=== PATIENT | male | born 1960 | race Caucasian/White ===

== ENCOUNTER 2019-08-22 01:30 | Outpatient (CLI) | payer SELFPAY ==
[2019-08-22 11:07] LABS: Anion Gap 7.3 mmol/L (3-11); BUN 20 mg/dL (7-18); CO2 29.7 mmol/L (21.0-32.0); CREATININE 1.29 mg/dL (0.70-1.30); Calcium 8.2 mg/dL (8.5-10.1); Chloride 104 mmol/L (98-107); Estimated GFR 57.21 (mL/min/1.73m2); Glucose 94 mg/dL (74-106); Potassium 4.7 mmol/L (3.5-5.1); Sodium 141 mmol/L (136-145); Uric Acid 6.9 mg/dL (3.5-7.2)
[2019-08-22 11:18] LABS: Calculated LDL 83 mg/dL (<100); Cholesterol 137 mg/dL (<200); HDL Cholesterol 46 mg/dL (40-60); Triglyceride 41 mg/dL (<150)
== END 2019-08-22 01:50 ==
PROVIDERS: PCP Family Medicine; Visit Provider Family Medicine
DX: I10 Essential (primary) hypertension (principal); M10.9 Gout, unspecified
CPT/HCPCS: 36415; 80048; 80061; 84550

== ENCOUNTER 2020-06-18 09:15 | Emergency (ER) | payer SELFPAY ==
[2020-06-18 09:23] VITALS: BP 173/93; PULSE 58; RESP 17; TEMP 36.7; O2SAT 97
--- NOTE | 2020-06-18 09:30 | DI.CT_ITS ---
EXAM: CT FACIAL W CLINICAL HISTORY: Left periorbital swelling. TECHNIQUE: Imaging Protocol: Axial computed tomography images with coronal and sagittal reformatted images were created and reviewed CONTRAST MATERIAL: Intravenous: Omnipaque 350 Contrast volume:100 ml contrast route:IV - COMPARISON: No exams were available for comparison FINDINGS: Facial Bones: No fracture is noted in facial bones. Sinuses and Mastoids: Mild ethmoid and right maxillary sinus mucosal thickening. Globes, extraocular muscles, optic nerves and retrobulbar fat: Normal. Upper aerodigestive tract: Normal. Mandible and bilateral temporomandibular joints: Normal. Soft tissues: Marked soft tissue swelling in the left Carolyne orbital region extending inferiorly to the left maxillary region. No foreign body is visible. The visualized portions of the brain are unremarkable. IMPRESSION: Left periorbital cellulitis. No drainable abscess or visible foreign body. RADIATION DOSE DELIVERED: 343.62mGy.cm Total DLP DATA REPOSITORY: All CT scans at this facility are submitted to the National Radiology Data Registry (NRDR) Dose Index Registry (DIR) with the [employer] (A[employer]). RADIATION OPTIMIZATION: All CT scans at this facility use at least one of these dose optimization te chniques: automated exposure control; mA and/or kV adjustment per patient size (includes targeted exa ms where dose is matched to clinical indication); or iterative reconstruction.
[2020-06-18 10:06] LABS: Abs Immature Grans 0.04 10^3/uL (0.0-0.06); Absolute Basophil Count 0.07 10^3/uL (0.0-0.2); Absolute Eosinophil Count 1.02 10^3/uL (0.0-0.7); Absolute Lymphocyte Count 2.59 10^3/uL (1.2-3.4); Absolute Monocyte Count 0.63 10^3/uL (0.1-0.8); Absolute Neutrophil Count 6.94 10^3/uL (1.2-6.7); Basophils % 0.6; HCT 50.4 % (40.0-50.0); HGB 17.5 g/dL (13.5-17.5); Immature Grans % 0.4; Lymphocytes % 22.9; MCH 30.1 pg (27.0-33.0); MCHC 34.7 % (32.0-36.0); MCV 86.6 fL (80-95); MPV 10.5 fL (8.0-11.0); Monocytes % 5.6; Neutrophils % 61.5; Nucleated RBC 0 %; Platelet Count 204 10^3/uL (130-400); RBC 5.82 10^6/uL (4.36-5.78); RDW 12.1 % (11.8-14.1); RDW-SD 38.3 fL; WBC 11.29 10^3/uL (4.4-10.8)
[2020-06-18 10:25] LABS: ALT 31 U/L (16-63); AST 16 U/L (15-37); Alkaline Phosphatase 100 U/L (46-116); Anion Gap 7.9 mmol/L (3-11); BUN 18 mg/dL (7-18); Bilirubin, Total 0.4 mg/dL (0.2-1.0); CO2 26.1 mmol/L (21.0-32.0); CREATININE 1.47 mg/dL (0.70-1.30); Calcium 9.1 mg/dL (8.5-10.1); Chloride 104 mmol/L (98-107); Estimated GFR 49.03 (mL/min/1.73m2); Glucose 105 mg/dL (74-106); Potassium 4.1 mmol/L (3.5-5.1); Sodium 138 mmol/L (136-145); Total Protein 7.7 g/dL (6.4-8.2)
[2020-06-18] MEDS: Normal Saline 1,000 ML 1000 ML IV (11:03)
[2020-06-18] MEDS: Normal Saline - Diluent 50 ML VIAL IV (11:03)
[2020-06-18] MEDS: Omnipaque 350 MG/ML 100 ML BTL IJ (11:03)
--- NOTE | 2020-06-18 11:04 | ED.GENADUL_ITS ---
Discharge Plan Disposition Patient Disposition: HOME Condition: Stable Discharge Details Clinical Impression: Periorbital cellulitis Primary Care Provider: Adryan Colunga ED Provider: Nirmal Zapien Home Meds and New Rx's Prescriptions: New sulfamethoxazole-trimethoprim [Bactrim DS] 800-160 mg tablet 1 tab PO BID Qty: 20 RF: 0 No Action lisinopril 40 mg tablet 40 mg PO DAILY Qty: 90 RF: 4 Prilosec 10 mg susp,delayed release for recon 10 mg PO DAILY RF: 0 Discharge Instructions Instructions: Cellulitis (ED) Additional Instructions: Bactrim as directed. Cool and/or warm compresses every 2 hours for 20 minutes. [id number] Tylenol and/or Motrin as directed for discomfort. Please watch for new or worsening symptoms and return to the ER for any concerns. Please contact your primary care provider on Saturday for prompt outpatient reevaluation. Discharge Data Discharge Date/Time-TO BE ENTERED AT DEPARTURE: 06/18/20 12:12 Medical Decision Making 60-year-old gentleman with left-sided facial swelling, edema has been intermittent and changing locations over the past couple of months however focal over the past 24-48 hours. He denies any obvious injury, eye pain, change of vision, numbness, tingling, weakness, headache, fever, neck pain, sore throat, difficulty speaking or swallowing. Clinically this appears to be more of a facial-periorbital cellulitis. No discomfort with eye movement, he appears well, nontoxic, less likely orbital cellulitis. Certainly could be an allergic reaction however given the presentation of multiple times over the past couple of months will obtain IV access, routine laboratory values and facial CT for more information. Patient is agreeable to this plan. He did have his holidays yesterday with his daughter who was known to be Covid positive. He is otherwise asymptomatic, we discussed the importance of quarantining. Initial laboratory values are rather unremarkable. White blood cell count slightly elevated 11.29. Electrolytes unremarkable. His creatinine is 1.47 with a GFR of 49.03. This appears near his baseline but minimally worse. We will give a single liter of IV fluid given he will obtain a CT with IV contrast. CT imaging read by radiology as left periorbital cellulitis. No CT evidence of foreign body. Hypoplastic right maxillary sinus with mild mucosal thickening. Likely asymmetrical accessory parotid gland tissue versus lymph node along the left lateral maxillary soft tissue. Discussed CT findings with patient. Will initiate antibiotic therapy, Bactrim. Patient is comfortable with this plan and has no additional questions or concerns. We did discuss [id number] Tylenol and/or Motrin for discomfort. The importance of returning to the ER for new or worsening symptoms. And lastly contacting his primary care provider on Saturday for prompt outpatient reevaluation. Medical Records Medical records reviewed: Yes I reviewed the patient's medical records. Lab Data Lab results reviewed: Yes I reviewed the patient's lab results. Lab results narrative: Laboratory Tests Range/Units 06/18/20 06/18/20 09:58 09:58 WBC (4.4-10.8) 10^3/uL 11.29 H RBC (4.36-5.78) 10^6/uL 5.82 H Hgb (13.5-17.5) g/dL 17.5 Hct (40.0-50.0) % 50.4 H MCV (80-95) fL 86.6 MCH (27.0-33.0) pg 30.1 MCHC (32.0-36.0) % 34.7 RDW (11.8-14.1) % 12.1 Plt Count (130-400) 10^3/uL 204 MPV (8.0-11.0) fL 10.5 Immature Gran % 0.4 Neutrophils % 61.5 Lymphocytes % 22.9 Monocytes % 5.6 Eosinophils % 9.0 Basophils % 0.6 Nucleated RBC % % 0 Absolute Neutrophils (1.2-6.7) 10^3/uL 6.94 H Absolute Lymphocytes (1.2-3.4) 10^3/uL 2.59 Absolute Monocytes (0.1-0.8) 10^3/uL 0.63 Absolute Eosinophils (0.0-0.7) 10^3/uL 1.02 H Absolute Basophils (0.0-0.2) 10^3/uL 0.07 Sodium (136-145) mmol/L 138 Potassium (3.5-5.1) mmol/L 4.1 Chloride (98-107) mmol/L 104 Carbon Dioxide (21.0-32.0) mmol/L 26.1 Anion Gap (3-11) mmol/L 7.9 BUN (7-18) mg/dL 18 Creatinine (0.70-1.30) mg/dL 1.47 H Estimated GFR/1.73 m2 (mL/min/1.73m2) 49.03 Glucose (74-106) mg/dL 105 Calcium (8.5-10.1) mg/dL 9.1 Total Bilirubin (0.2-1.0) mg/dL 0.4 AST (15-37) U/L 16 ALT (16-63) U/L 31 Alkaline Phosphatase (46-116) U/L 100 Total Protein (6.4-8.2) g/dL 7.7 Albumin (3.4-5.0) g/dL 4.0 HPI General Mode of arrival: ambulatory . Date/Time Provider Initiated Documentation: 06/18/20 09:15 . Limitations to Documentation: no limitations . Information obtained by: patient . HPI Narrative: This is a 60-year-old gentleman, past medical history of hypertension, GERD, current smoker, presenting for a left-sided facial swelling. He reports the pain is without discomfort or warmth. It began 2 days ago near his left cheek and now is spread across his entire left eye. He is unaware of any triggers, anything that makes symptoms worse or better. He has taken Benadryl but unsure if it has really made a difference. He states over the past 1-2 months, initially had this began in [place], was in the center of his forehead, went to the right side of his head now, now on the left side of his face. He has not had this evaluated prior to today. He denies recent illness or trauma. He was in contact with his daughter yesterday who was tested positive for Covid. He denies eye pain, visual changes, ear pain, sore throat, facial pain, chest pain, shortness of breath, numbness, tingling, weakness, redness, abdominal pain, nausea, vomiting. Related Data Home Medications Medication Instructions Recorded Confirmed lisinopril 40 mg tablet 40 mg PO DAILY #90 tab-cap 08/07/19 06/18/20 omeprazole magnesium 10 mg oral 10 mg PO DAILY 10/07/19 06/18/20 suspension,delayed release sulfamethoxazole-trimethoprim 1 tab PO BID #20 tab 06/18/20 [Bactrim DS] Previous Rx's Medication Instructions Recorded lisinopril 40 mg tablet 40 mg PO DAILY #90 tab-cap 08/07/19 sulfamethoxazole-trimethoprim 1 tab PO BID #20 tab 06/18/20 [Bactrim DS] Allergies Allergy/AdvReac Type Severity Reaction Status Date / Time indomethacin AdvReac N/V/D Verified 06/18/20 09:26 General Stated Complaint: Cellulitis BIJU: 3 Review of Systems Constitutional Constitutional: Denies fever(s), Denies headache(s) and Denies weakness Eyes Eyes: Denies change in vision and Denies eye pain ENT Ears, Nose, Mouth, and Throat: Denies headache(s), Denies neck pain and Denies sore throat Cardiovascular Cardiovascular: Denies chest pain and Denies dyspnea Respiratory Respiratory: Denies cough, Denies dyspnea and Denies wheezing Gastrointestinal Gastrointestinal: Denies abdominal pain, Denies nausea and Denies vomiting Musculoskeletal Musculoskeletal: Denies neck pain, Denies numbness and Denies tingling Integumentary/Breasts Skin/Breast: Denies erythema Neurologic Neurologic: Denies headache(s), Denies numbness, Denies tingling and Denies weakness Allergic/Immunologic Allergic/Immunologic: Denies wheezing PFSH Medical History Shoulder pain, bilateral Family History Mother , AGE 70 Stroke Cancer Father Dementia Leukemia Sister Substance abuse Brother Asthma Maternal Grandfather Cancer Heart disease Paternal Grandfather No problems noted. Maternal Grandmother No problems noted. Paternal Grandmother No problems noted. Brother No problems noted. Brother No problems noted. Son No problems noted. Daughter No problems noted. Social History Smoking/Tobacco Use Status: Former Tobacco Use Tobacco: How many years used: 26 Second Hand Exposure: Yes Smoking risk assessment performed?: Yes Alcohol Intake: current Alcohol Intake frequency: holidays/special occasions only Alcohol type: beer Drug use: Never Substance use type: does not use Household members: spouse and family Housing: house Pets and animals: Yes Pets and animals: cat(s) and dog(s) Sexually active: Yes Do you think of yourself as: straight/heterosexual Current gender identity: male What is your relationship status?: How often do you talk on the phone with friends or family?: decline to answer How often do you get together with friends or relatives?: once per week Do you belong to any clubs or organized social groups?: no Panel score (0-1 are the most socially isolated patients): 1 What type of physical activity do you participate in: walking Duration: 15-30 minutes/day Frequency: 5-6 times per week Shayla/Gnosticism: Amish Special shayla needs: No Seatbelt use: always Helmet use: No 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 Do you feel safe at home: Yes Do you feel safe in your relationship?: Yes Exam Const General: cooperative, healthy appearing, comfortable and no acute distress Orientation: alert, awake and oriented x3 HENMT Head: normal to inspection, normocephalic and atraumatic Ears: external ears normal, TM's normal bilaterally and EAC's normal General nose exam: external nose normal Face and sinus: edema on the left periorbital, forehead, malar area and maxilla Mouth: oral mucosae normal and moist mucous membranes Teeth and gingiva: dentition normal Throat: posterior oropharynx normal Eyes Alignment and Position: alignment normal Periorbital: periorbital findings abnormal left periorbital swelling; no tenderness, no erythema, no ecchymosis and no crepitus Eyelids: eyelid abnormality left upper eyelid swelling and left lower eyelid swelling Conjunctivae: conjunctivae normal Sclera: sclerae normal Cornea: corneas normal Pupils: PERRL EOM: EOM intact bilaterally Direct ophthalmoscopy: normal light reflex Neck Neck: normal visual inspection, full ROM, no meningeal signs, trachea midline, supple, lymphadenopathy left submandibular and nontender Resp Effort & Inspection: normal respiratory effort and able to speak in complete sentences Auscultation: clear to auscultation bilaterally Cardio Rate: regular rate Rhythm: regular rhythm Skin General skin exam: no rashes or lesions noted Neuro General: patient alert, patient awake, moves all extremities and no focal motor deficits Cranial Nerves: CN's II-XI intact bilaterally Cognition: normal cognition Speech: speech normal Gait: normal gait Sensory Exam: no sensory deficits noted Psych Appearance: grossly normal Mental Status: mental status grossly normal Course Vital Signs Vital signs: Vital Signs Temperature 36.7 C 06/18/20 09:23 Pulse 58 L 06/18/20 09:23 Respiratory Rate 17 06/18/20 09:23 Blood Pressure 173/93 H 06/18/20 09:23 Pulse Oximetry 97 06/18/20 09:23 Temperature 36.7 C 06/18/20 09:23 Temperature Source Temporal Artery Scan 06/18/20 09:23 Pulse 58 L 06/18/20 09:23 Respiratory Rate 17 06/18/20 09:23 Respiratory Effort Non-Labored 06/18/20 09:27 Blood Pressure 173/93 H 06/18/20 09:23 Blood Pressure Position Sitting 06/18/20 09:23 Pulse Oximetry 97 06/18/20 09:23 Oxygen Delivery Method Nasal Cannula 06/18/20 09:23 Pain Level 0 06/18/20 09:23 Lab/Test Results Lab/Test Results: Laboratory Tests Range/Units 06/18/20 06/18/20 09:58 09:58 WBC (4.4-10.8) 10^3/uL 11.29 H RBC (4.36-5.78) 10^6/uL 5.82 H Hgb (13.5-17.5) g/dL 17.5 Hct (40.0-50.0) % 50.4 H MCV (80-95) fL 86.6 MCH (27.0-33.0) pg 30.1 MCHC (32.0-36.0) % 34.7 RDW (11.8-14.1) % 12.1 Plt Count (130-400) 10^3/uL 204 MPV (8.0-11.0) fL 10.5 Immature Gran % 0.4 Neutrophils % 61.5 Lymphocytes % 22.9 Monocytes % 5.6 Eosinophils % 9.0 Basophils % 0.6 Nucleated RBC % % 0 Absolute Neutrophils (1.2-6.7) 10^3/uL 6.94 H Absolute Lymphocytes (1.2-3.4) 10^3/uL 2.59 Absolute Monocytes (0.1-0.8) 10^3/uL 0.63 Absolute Eosinophils (0.0-0.7) 10^3/uL 1.02 H Absolute Basophils (0.0-0.2) 10^3/uL 0.07 Sodium (136-145) mmol/L 138 Potassium (3.5-5.1) mmol/L 4.1 Chloride (98-107) mmol/L 104 Carbon Dioxide (21.0-32.0) mmol/L 26.1 Anion Gap (3-11) mmol/L 7.9 BUN (7-18) mg/dL 18 Creatinine (0.70-1.30) mg/dL 1.47 H Estimated GFR/1.73 m2 (mL/min/1.73m2) 49.03 Glucose (74-106) mg/dL 105 Calcium (8.5-10.1) mg/dL 9.1 Total Bilirubin (0.2-1.0) mg/dL 0.4 AST (15-37) U/L 16 ALT (16-63) U/L 31 Alkaline Phosphatase (46-116) U/L 100 Total Protein (6.4-8.2) g/dL 7.7 Albumin (3.4-5.0) g/dL 4.0
--- NOTE | 2020-06-18 11:14 | DI.VRAD_ITS ---
PROCEDURE INFORMATION: Exam: CT Maxillofacial With Contrast Exam date and time: 06/18/2020 9:45 AM Age: 60 years old Clinical indication: Eye pain and face pain; Left; Patient HX: Moving mulch, feels like fb in eye beginning Saturday TECHNIQUE: Imaging protocol: Computed tomography images of the face with intravenous contrast. COMPARISON: No relevant prior studies available. FINDINGS: Orbital cavity: The orbits are unremarkable posterior to the orbital septum. The globes are intact. Bones/joints: No acute fracture. Paranasal sinuses: Hypoplastic right maxillary sinus. Mild ethmoid and right maxillary sinus mucosal thickening. Soft tissues: Significant left periorbital soft tissue swelling and edema with extension to the left maxillary soft tissues. No CT evident foreign body. Lymph nodes: Asymmetrical soft tissue density measuring 2.1 x 1.0 cm in axial dimension along the left lateral maxillary soft tissues could represent accessory parotid gland versus reactive lymph node. IMPRESSION: 1. Left periorbital cellulitis as described above. No CT evident foreign body. If continued clinical concern for foreign body remains, recommend targeted ultrasound examination. 2. Hypoplastic right maxillary sinus with mild mucosal thickening. 3. Likely asymmetrical accessory parotid gland tissue versus lymph node along the left lateral maxillary soft tissues. Dictated and Authenticated by: Hossein Melendez MD. Ordering:RYLEY Kinney MD
[2020-06-18] MEDS: Sulfameth/Trimeth DS TAB 1 TAB PO (11:31)
[2020-06-18 12:09] VITALS: BP 163/86; PULSE 55; RESP 16; TEMP 36.9; O2SAT 99
== END 2020-06-18 12:12 | disposition home or self-care (01) ==
PROVIDERS: Emergency Provider Physician Assistant; PCP Family Medicine
DX: L03.213 Periorbital cellulitis (principal); I10 Essential (primary) hypertension
CPT/HCPCS: 80053; 96360; 99285; 70487; 85025; 99284; J3490

== ENCOUNTER 2020-09-16 16:44 | Outpatient (REF) | payer SELFPAY ==
[2020-09-16 21:04] LABS: Anion Gap 12.5 mmol/L (3-11); BUN 14 mg/dL (7-18); CO2 24.5 mmol/L (21.0-32.0); CREATININE 1.2 mg/dL (0.70-1.30); Calcium 9.3 mg/dL (8.5-10.1); Chloride 102 mmol/L (98-107); Glucose 107 mg/dL (74-106); Potassium 3.8 mmol/L (3.5-5.1); Sodium 139 mmol/L (136-145); Uric Acid 6.8 mg/dL (3.5-7.2)
== END 2020-09-16 16:45 | disposition home or self-care (01) ==
LOC: LBN 16:44
PROVIDERS: PCP Family Medicine; Visit Provider Emergency Medicine
DX: I10 Essential (primary) hypertension (principal); M10.9 Gout, unspecified
CPT/HCPCS: 80048; 84550

== ENCOUNTER 2021-05-26 18:46 | Outpatient (REF) | payer SELFPAY ==
[2021-05-28 22:25] LABS: COVID-19 RT-PCR UVMMC Result Positive (Negative)
== END 2021-05-26 18:47 | disposition home or self-care (01) ==
LOC: LBN 18:46
PROVIDERS: PCP Family Medicine; Visit Provider Family Medicine
DX: Z20.822 Contact with and (suspected) exposure to COVID-19 (principal)
CPT/HCPCS: U0003

== ENCOUNTER 2021-11-20 13:52 | Emergency (ER) | payer SELFPAY ==
[2021-11-20 14:01] VITALS: BP 170/93; PULSE 78; RESP 18; TEMP 36.3; O2SAT 97
--- NOTE | 2021-11-20 14:23 | ED.GENADUL_ITS ---
Discharge Plan Disposition Patient Disposition: HOME Condition: Stable Discharge Details Clinical Impression: Tadeo's palsy Primary Care Provider: Kimo George ED Provider: Frieda Reina Home Meds and New Rx's Prescriptions: New prednisone 20 mg tablet 60 mg PO ONCE Qty: 21 0RF valacyclovir [Valtrex] 1 gram tablet 1,000 mg PO TID Qty: 21 0RF Continued Prilosec 10 mg susp,delayed release for recon 10 mg PO DAILY metoprolol succinate 25 mg tablet extended release 24 hr 25 mg PO DAILY Qty: 90 3RF amlodipine 10 mg tablet 10 mg PO DAILY Qty: 90 3RF allopurinol 300 mg tablet 450 mg PO DAILY Qty: 135 3RF Rx Instructions: dose increase 11/02/20 Discharge Instructions Additional Instructions: Please take the Valtrex as prescribed Take the prednisone as prescribed Apply artificial tears to your eye at least 3 times daily You may wish to wear goggles to protect your eye and keep your eyes shut with repeated exposure Return earlier should you have new or worsening complaints If you start having some discomfort to your eye, it is recommended that you follow-up with the clinical science consultant, Sherine Referrals: Kimo George, COLLE[facility] ADMINISTRATOR [Primary Care Provider] - Discharge Data Discharge Date/Time-TO BE ENTERED AT DEPARTURE: 11/20/21 15:00 Medical Decision Making Patient with likely Tadeo's palsy Given facial nerve palsy on exam Lyme titer pending Alert, oriented, ambulatory with steady gait and otherwise nonfocal neurological exam aside from facial nerve palsy Placed on Valtrex, prednisone taper Will need close outpatient follow-up Referral to [facility] Low suspicion clinically for central process Medical Records Medical records reviewed: Yes I reviewed the patient's medical records. Lab Data Lab results reviewed: Yes I reviewed the patient's lab results. HPI General Date/Time Provider Initiated Documentation: 11/20/21 14:00 . HPI Narrative: This 61-year-old male with history of hypertension presents with left facial droop since . He states he awoke with it. He denies any chest pain. He states he is unable to close his eye and is constantly tearing. He denies any strength, speech, or sensation change. He denies history of similar symptoms in the past. He denies any rashes or history of herpes. He denies any headache. Denies any chest pain or shortness of breath. Denies any dizziness or weakness. Denies any falls or injuries Related Data Home Medications Medication Instructions Recorded Confirmed omeprazole magnesium 10 mg oral 10 mg PO DAILY 10/07/19 11/20/21 suspension,delayed release (Prilosec) allopurinol 300 mg tablet 450 mg PO DAILY #135 tabs 08/15/21 11/20/21 amlodipine 10 mg tablet 10 mg PO DAILY #90 tabs 08/15/21 11/20/21 metoprolol succinate 25 mg 25 mg PO DAILY #90 tabs 08/15/21 11/20/21 tablet,extended release 24 hr prednisone 20 mg tablet 60 mg PO ONCE #21 tabs 11/20/21 valacyclovir 1 gram tablet 1,000 mg PO TID #21 tabs 11/20/21 (Valtrex) Previous Rx's Medication Instructions Recorded allopurinol 300 mg tablet 450 mg PO DAILY #135 tabs 08/15/21 amlodipine 10 mg tablet 10 mg PO DAILY #90 tabs 08/15/21 metoprolol succinate 25 mg 25 mg PO DAILY #90 tabs 08/15/21 tablet,extended release 24 hr prednisone 20 mg tablet 60 mg PO ONCE #21 tabs 11/20/21 valacyclovir 1 gram tablet 1,000 mg PO TID #21 tabs 11/20/21 (Valtrex) Allergies Allergy/AdvReac Type Severity Reaction Status Date / Time SHIRLEY Inhibitors AdvReac Intermediate angioedema Verified 11/20/21 14:05 indomethacin AdvReac N/V/D Verified 11/20/21 14:05 General Stated Complaint: AMS/LOC BIJU: 3 Review of Systems Narrative: Review of systems obtained x10 and negative aside from medication HPI Eyes Comments: Pupils equal round reactive to light and accommodation PFSH All Active Problems (Updated 11/20/21 @ 14:32 by EDWARDO Clayton) Tadeo's palsy (Acute) Exposure to COVID-19 virus (Acute) Facial swelling (Acute) Shoulder pain, bilateral (Acute) Pelvic pain (Acute) Essential hypertension (Acute) Patellofemoral syndrome of left knee (Chronic) Drug-induced erectile dysfunction (Chronic 06/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 Maternal Grandmother No problems noted. Paternal Grandmother No problems noted. Brother No problems noted. Brother No problems noted. Son No problems noted. Daughter No problems noted. Social History (Updated 11/29/20 @ 15:47 by Chloe Miller) Smoking/Tobacco Use Status: Former Tobacco Use Tobacco: How many years used: 26 Second Hand Exposure: Yes Smoking risk assessment performed?: Yes Alcohol Intake: current Alcohol Intake frequency: holidays/special occasions only Alcohol type: beer Drug use: Never Substance use type: does not use Household members: spouse and children Housing: house Communication Needs: None Do you need help understanding health information?: Always Pets and animals: Yes Pets and animals: cat(s) and dog(s) Sexually active: Yes Do you think of yourself as: straight/heterosexual Current gender identity: male What is your relationship status?: refused to answer How often do you talk on the phone with friends or family?: once per week How often do you get together with friends or relatives?: never How often do you attend scientologist or episcopalian services?: 1-3 times per year Do you belong to any clubs or organized social groups?: no Panel score (0-1 are the most socially isolated patients): 0 What type of physical activity do you participate in: walking Duration: 30-45 minutes/day Frequency: 5-6 times per week Shayla/Roman Catholic: Mu-Ism Special shayla needs: No Seatbelt use: sometimes Helmet use: No Drive 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 or 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 Do you feel safe at home: Yes Do you feel safe in your relationship?: Yes Exam Const General: cooperative, comfortable and no acute distress Chest Chest: normal inspection of the chest Resp Effort & Inspection: normal respiratory effort Auscultation: clear to auscultation bilaterally Cardio Rate: regular rate Rhythm: regular rhythm GI Inspection: normal to inspection Skin General skin exam: no rashes or lesions noted Neuro General: patient alert and patient oriented x3 Speech: speech normal Motor: muscle tone normal throughout and strength 5/5 throughout Sensory Exam: no sensory deficits noted Other: Left facial nerve palsy noted, uvula midline, negative pronator drift, negative finger-nose finger Course Vital Signs Vital signs: Vital Signs Temperature 36.3 C L 11/20/21 14:01 Pulse 78 11/20/21 14:01 Respiratory Rate 18 11/20/21 14:01 Blood Pressure 170/93 H 11/20/21 14:01 Pulse Oximetry 97 11/20/21 14:01 Temperature 36.3 C L 11/20/21 14:01 Temperature Source Temporal Artery Scan 11/20/21 14:01 Pulse 78 11/20/21 14:01 Respiratory Rate 18 11/20/21 14:01 Respiratory Effort Non-Labored 11/20/21 14:05 Blood Pressure 170/93 H 11/20/21 14:01 Blood Pressure Position Sitting 11/20/21 14:01 Pulse Oximetry 97 11/20/21 14:01 Oxygen Delivery Method Room Air 11/20/21 14:01 Oxygen Flow Rate 0 11/20/21 14:01 PAWSS Have you Been Recently Intoxicated or Drunk Within the Last 30 days?: No Have you Ever Experienced Previous Episodes of Alcohol Withdrawal?: No Have you ever Experienced Withdrawal Seizures?: No Have you ever Experienced Delirium Tremens(DT)s?: No Have you ever undergone Alcohol Rehabilitation Treatment (i.e, inpt ot outpatient treatment programs)?: No Have you ever Experienced Blackouts?: No Have you ever Combined Alcohol with other Downers within the last 90 days?: No Have you ever Combined Alcohol with any other Substance of Abuse during the last 90 days?: No Positive Blood Alcohol level on Presentation? [PCS.BAL]: No Evidence of Increased Autonomic Activity (i.e. HR>120, tremor, sweating, agitation, nausea)?: No Result: 0
[2021-11-20 14:24] VITALS: RESP 16
[2021-11-20 14:35] VITALS: BP 143/80; PULSE 62; RESP 16; TEMP 36.3; O2SAT 97
[2021-11-22 10:21] LABS: Lyme Ab w Rflx to Lyme Confirm Negative (Negative)
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
[2021-11-23 20:36] LABS: Anaplasma phagocytophilum Negative (Negative); B. miyamotoi PCR Negative (Negative); Babesia divergens/MO-1 Negative (Negative); Babesia duncani Negative (Negative); Babesia microti Negative (Negative); Ehrlichia chaffeensis Negative (Negative); Ehrlichia ewingii/canis Negative (Negative); Ehrlichia muris eauclairensis Negative (Negative)
== END 2021-11-20 15:00 | disposition home or self-care (01) ==
PROVIDERS: Emergency Provider Physician Assistant; PCP Nurse Practitioner Family
DX: G51.0 Bell's palsy (principal)
CPT/HCPCS: 36416; 82962; 87798; 99283; 86618

== ENCOUNTER 2022-07-24 01:28 | Outpatient (CLI) | payer MEDICAID, SELFPAY ==
--- NOTE | 2022-07-24 07:15 | DI.RAD_ITS ---
Exam(s) XR CERVICAL SPINE COMP 4-5V EXAM: XR CERVICAL SPINE COMP 4-5V CLINICAL HISTORY: rt arm weakness for 10 days,neck pain, m54.2,r29.898. TECHNIQUE: 2D digital imaging was performed. Six images were obtained. AP, odontoid, lateral and suzanne ateral oblique images were obtained. COMPARISON: No exams were available for comparison FINDINGS: The odontoid is intact. The lateral masses are well aligned. There is normal alignment of the cervi joie spine. Small endplate osteophytes are seen from from C3-4 through C6-C7. No acute fracture or sub luxation is present. There is mild neural foraminal narrowing on the right at C5-C6. The cervical tho racic junction is well maintained. The prevertebral soft tissues are unremarkable. Lung apices are c lear. IMPRESSION: Mild cervical spondylosis. DATA REPOSITORY: RADIATION DOSE DELIVERED:
== END 2022-07-24 01:48 ==
LOC: DI 01:28
PROVIDERS: PCP Nurse Practitioner Family; Visit Provider Family Medicine
DX: M54.2 Cervicalgia (principal); R29.898 Other symptoms and signs involving the musculoskeletal system; M62.81 Muscle weakness (generalized); M47.812 Spondylosis without myelopathy or radiculopathy, cervical region
CPT/HCPCS: 72050

== ENCOUNTER 2022-10-23 02:25 | Outpatient (CLI) | payer MEDICAID, SELFPAY ==
--- NOTE | 2022-10-23 07:45 | DI.MRI_ITS ---
Exam(s) MR CERVICAL SPINE WO EXAM: MR CERVICAL SPINE WO CLINICAL HISTORY: ? right cervical radiculopathy,NECK PAIN, RT HAND PAIN,RT HAND PARESTHESIA, TECHNIQUE: Multiplanar multisequence MRI of the cervical spine was performed without intravenous con trast. COMPARISON: CR XR CERVICAL SPINE COMP 4-5V from 07/24/2022 FINDINGS: CERVICOMEDULLARY JUNCTION: Intact with no evidence of cerebellar tonsillar ectopia. No obvious abnor mality of the odontoid process. No evidence of Chiari 1 malformation. CERVICAL SPINAL CORD: There is no abnormal signal in the cervical spinal cord and no evidence of foca l cord atrophy nor focal cord swelling. OSSEOUS:There are no cervical fractures evident. No significant osseous lesions in the cervical vert ebrae. There is slight reversal of the normal cervical curvature. INDIVIDUAL LEVELS: C2-3: No disc herniation nor central canal stenosis. No foraminal stenosis. Mild degenerative change s in the left facet joint. No degenerative changes in the right facet joint. C3-4: Minimal disc space narrowing. Posteriorly there is mild annular bulging without a dominant dis c herniation. Central canal dimensions are lower normal. Facet joints unremarkable. No foraminal s tenosis. C4-5: Mild disc space narrowing. Anterior osseous lipping.Posteriorly there is annular bulging with a small superimposed right paracentral disc protrusion. There is indentation of the anterior thecal sac and the right paracentral small disc protrusion does contact the anterior aspect of the spinal co rd. There is no abnormal signal in the cord at this level. AP dimensions of the canal at this level is 10 mm. There are no prominent Luschka joint osteophytes. There are no prominent facet arthropat hy changes. No prominent foraminal stenosis. C5-6: This level exhibits moderate decreased disc height. Anterior osseous lipping. There is flower cutter ior annular bulging which flattens the thecal sac but not the cervical cord. No abnormal signal in t he cord at this level. AP measurement of the canal at this level is 9.5 mm. There are no prominent Luschka joint osteophytes. No prominent facet arthropathy. Mild foraminal stenosis on the left side . No obvious foraminal stenosis on the right side. C6-7: Mild disc space narrowing. Posteriorly there is symmetrical annular bulging without a dominant disc herniation. Central canal dimensions are lower normal. AP measurement of the canal at this le yony is 10.5 mm There are mild degenerative changes in the facet joints but no significant foraminal stenosis on eith er side at this level. C7-T1: Normal disc height with no disc herniation or canal stenosis. AP diameter of the canal at thi s level is 14 mm. No foraminal stenosis. No facet arthropathy. IMPRESSION: 1. There is multilevel mild-moderate degenerative disc disease with mild central canal stenosis at C 4-5 and C5-6 levels. No tight central canal stenosis. No abnormal signal in the cervical spinal cor d. 2. In addition the annular bulging there is a small right paracentral disc protrusion at C4-5 level w hich indents the thecal sac and contacts the anterior aspect of the spinal cord. 3. There are only mild degenerative changes in the facet joints. There are no prominent Luschka join t osteophytes in the cervical spine. No tight foraminal stenosis. 4. There is mild reversal of the normal no curvature which is probably related to muscle spasm. The re is no abnormal intraosseous signal in the cervical vertebrae. DATA REPOSITORY:
== END 2022-10-23 02:45 ==
LOC: DI 02:27
PROVIDERS: PCP Nurse Practitioner Family; Visit Provider Nurse Practitioner Adult Health
DX: G89.29 Other chronic pain (principal); M54.2 Cervicalgia; M79.641 Pain in right hand; R20.2 Paresthesia of skin; M48.02 Spinal stenosis, cervical region
CPT/HCPCS: 72141

== ENCOUNTER → 2023-07-17 01:06 | Outpatient (CLI) | payer MEDICAID, SELFPAY ==
--- NOTE | 2023-07-17 | DI.MRI_ITS ---
Exam(s) MR LUMBAR SPINE WO EXAM: MR LUMBAR SPINE WO CLINICAL HISTORY: SPONDYLOLISTHESIS L5-S1 LEVEL M43.17 RADICULOPATHY LUMBAR REGION M54.16. TECHNIQUE: Multiplanar multisequence MRI of the Lumbar spine was performed. COMPARISON: No exams were available for comparison FINDINGS: Bones: The last intervertebral disc space is designated the L5/S1 level for the numbering purpose of this ex amination. There is a moderate to severe compression fracture of L1. There is retropulsion of the central porti on of the superior endplate into the central canal by 4-5 millimeters. A moderate compression fracture of L4 with Schmorl's node. No suspicious abnormal marrow signal. Degenerative signal changes in the endplates. Cord: The conus tip ends at the T12 level. It is of normal size and signal intensity. T12-L1:There is retropulsion of the central portion of the superior endplate into the central canal b y 4-5 millimeters. No focal disc herniation is present. No central spinal canal stenosis.No neural f oraminal stenosis. L1-2: No focal disc herniation is present. No central spinal canal stenosis.No neural foraminal sten osis. L2-3: No focal disc herniation is present. No central spinal canal stenosis.No neural foraminal nick nosis. L3-4: Mild loss of disc height. Small endplate osteophytes and mild disc bulging. Facet degenerativ e changes.No focal disc herniation is present. No central spinal canal stenosis.Moderate left neura l foraminal stenosis. L4-5:Minimal disc bulging. No focal disc herniation is present. No central spinal canal stenosis.Mi ld bilateral neural foraminal narrowing. L5-S1: Bilateral L5 spondylolysis. Grade 1 L5-S1 spondylolisthesis. Facet degenerative changes. Se david bilateral neural foraminal narrowing.No focal disc herniation is present. No central spinal can al stenosis. The visualized SI joints and sacrum are unremarkable. Soft tissues: The paraspinal soft tissues are unremarkable. IMPRESSION: Old compression fractures of L1 and L4. Mild retropulsion of the superior endplate of L1 but no cent ral canal stenosis. Bilateral L5 spondylolysis and spondylolisthesis as well as facet degenerative changes cause severe b ilateral neural foraminal narrowing but no central canal stenosis. DATA REPOSITORY:
== END ==
PROVIDERS: PCP Nurse Practitioner Family; Visit Provider Physician Assistant
DX: M43.07 Spondylolysis, lumbosacral region (principal)
CPT/HCPCS: 72148

== ENCOUNTER 2024-09-14 02:47 | Outpatient (CLI) | payer MEDICAID, SELFPAY ==
[2024-09-14 12:32] LABS: Hemoglobin A1C 5.9 % (<5.7)
[2024-09-14 12:34] LABS: Anion Gap 7.4 mmol/L (3-11); BUN 18 mg/dL (7-18); CO2 27.6 mmol/L (21.0-32.0); Calculated LDL 79 mg/dL (<100); Chloride 110 mmol/L (98-107); Cholesterol 141 mg/dL (<200); Estimated GFR 84.57 (mL/min/1.73m2); Glucose 88 mg/dL (74-106); HDL Cholesterol 51 mg/dL (>or=40); Potassium 4.5 mmol/L (3.5-5.1); Sodium 145 mmol/L (136-145); Triglyceride 57 mg/dL (<150)
== END 2024-09-14 02:48 | disposition home or self-care (01) ==
LOC: LOS 02:47
PROVIDERS: PCP Nurse Practitioner Family; Visit Provider Nurse Practitioner Family
DX: Z13.220 Encounter for screening for lipoid disorders (principal); Z13.1 Encounter for screening for diabetes mellitus; I10 Essential (primary) hypertension; K43.9 Ventral hernia without obstruction or gangrene
CPT/HCPCS: 36415; 80048; 80061; 83036

== ENCOUNTER 2024-11-03 09:25 | Inpatient (IN) | payer MEDICAID, SELFPAY ==
[2024-11-03] VITALS (73 sets, daily range): BP systolic 91–184; BP diastolic 31–138; PULSE 47–143; RESP 8–36; TEMP 35.9–37.4; O2SAT 88–97; BMI 34.8
--- NOTE | 2024-11-03 09:15 | RT.EKG_ITS ---
APPROVED REPORT Exam: Resting ECG Reason for Exam: Abd Pain Patient Location: E HR:69 bpm ECG Measurements Heart Rate 69 AXIS AZ 144 P 33 QRSd 85 QRS 25 QT 419 T 11 QTc 448 Conclusion Sinus rhythm...normal P axis, V-rate 60- 99 Low voltage, precordial leads...precordial leads <1.0mV No Occlusion MT
--- NOTE | 2024-11-03 09:33 | W.EDPROG ---
Date of service: 11/03/24 Time of Service: 09:42 Medical Decision Making This is an overall well-appearing 64-year-old male with history and physical bedside ultrasound concerning for the possibility of symptomatic cholelithiasis given stone in neck for which labs and formal ultrasound will be obtained. 4:30 PM Late charting due to patient care. Patient was taken to the OR by Dr. Anne. Quality:SDOH Health Related Social Needs: No Data to Display Discharge Plan Disposition Patient Disposition: Admit to [facility] Condition: Good Discharge Details Clinical Impression: Acute cholecystitis Attending Provider: Wojciech Anne Primary Care Provider: Kimo George ED Provider: Bhavana Whitmore Discharge Data Discharge Date/Time-TO BE ENTERED AT DEPARTURE: 11/03/24 14:42 POCUS Exam (ED) Limited Gallbladder Exam DATE OF EXAM: 11/25/24 TIME OF EXAM: 10:09 REASON FOR VISIT: RUQ pain VISUALIZED STRUCTURES: Gallbladder PERTINENT FINDINGS/IMPRESSION: Gallstones; No Pericholecystic fluid and No thickening of the gallbladder wall INCIDENTAL FINDINGS: Cholelithiasis with stone in neck. No gallbladder wall thickening or pericholecystic fluid. Sonographic Denise sign present. Exam complete
--- NOTE | 2024-11-03 10:06 | DI.US_ITS ---
Exam(s) US ABDOMEN LIMITED EXAM: US ABDOMEN LIMITED CLINICAL HISTORY: RUQ pain to epigastrum TECHNIQUE: Ultrasound abdomen performed using standard protocol. COMPARISON: No exams were available for comparison FINDINGS: PANCREAS: Normal where visualized. LIVER: There is diffuse increased echogenicity of the liver consistent with fatty infiltration. Hepa topetal flow in the Portal Vein. The liver measures in 18.2 cm length. No evidence of a hepatic mass. GALLBLADDER:There is a 2.0 cm immobile gallstone in the neck of the gallbladder. No evidence of wall thickening. No pericholecystic fluid identified. BILIARY SYSTEM: Common bile duct measures < 7 mm. No intrahepatic biliary ductal dilation. DENISE'S SIGN: Positive RIGHT KIDNEY: Kidney is normal in size. No evidence of renal calculi. No evidence of hydronephrosis. No renal mass or cyst identified. ASCITES: None seen. IMPRESSION: 2 cm immobile gallstone in the neck of the gallbladder with a positive sonographic Denise sign. The findings are consistent with acute cholecystitis. DATA REPOSITORY:
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
[2024-11-03 10:16] LABS: Abs Immature Grans 0.05 10^3/uL (0.0-0.06); Absolute Basophil Count 0.07 10^3/uL (0.0-0.2); Basophils % 0.5 %; Eosinophils % 1.4 %; HCT 47.9 % (40.0-50.0); HGB 16.7 g/dL (13.5-17.5); Immature Grans % 0.3 %; Lymphocytes % 13.5 %; MCH 29.9 pg (27.0-33.0); MCHC 34.9 % (32.0-36.0); MCV 86 fL (80-95); MPV 10.4 fL (8.0-11.0); Monocytes % 4.9 %; Neutrophils % 79.4 %; Platelet Count 245 10^3/uL (130-400); RBC 5.59 10^6/uL (4.36-5.78); RDW 13.6 % (11.8-14.1); RDW-SD 42.5 fL; WBC 14.41 10^3/uL (4.4-10.8)
[2024-11-03] MEDS: MORPHine 10 MG/ML VIAL 4 MG IVP (10:16)
[2024-11-03 10:17] LABS: Absolute Lymphocyte Count 1.95 10^3/uL (1.2-3.4); Absolute Monocyte Count 0.71 10^3/uL (0.1-0.8); Absolute Neutrophil Count 11.44 10^3/uL (1.2-6.7)
[2024-11-03] MEDS: MORPHine 4 MG/ML SYR IVP ×2 (10:57→13:23)
[2024-11-03] MEDS: Lactated Ringers 1,000 ML 1000 ML IV (10:57)
[2024-11-03 11:21] LABS: ALT 43 U/L (16-63); AST 21 U/L (15-37); Albumin 3.8 g/dL (3.4-5.0); Alkaline Phosphatase 157 U/L (46-116); BUN 12 mg/dL (7-18); Bilirubin, Total 0.4 mg/dL (0.2-1.0); CREATININE 1.1 mg/dL (0.70-1.30); Calcium 9.5 mg/dL (8.5-10.1); Chloride 104 mmol/L (98-107); Estimated GFR 75.43 (mL/min/1.73m2); Glucose 135 mg/dL (74-106); Lipase 24 U/L (<78); Magnesium 1.9 mg/dL (1.8-2.4); Potassium 4.2 mmol/L (3.5-5.1); Sodium 139 mmol/L (136-145); Total Protein 7.4 g/dL (6.4-8.2); Troponin I 10 ng/L (<or=76)
[2024-11-03] MEDS: ACETAMINOPHEN 1,000 MG/100 ML BAG 400 MG IVPB (11:34)
[2024-11-03 12:00] LABS: Troponin I 5 ng/L (<or=76)
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
[2024-11-03] MEDS: Lactated Ringers 1,000 ML 80 ML IV (14:50)
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
[2024-11-03] MEDS: Droperidol 5 MG/2 ML VIAL 2.5 MG IVP (15:05)
[2024-11-03] MEDS: Normal Saline Flush 10 ML SYR IVP ×2 (15:06→19:49)
[2024-11-03] MEDS: Indocyanine green 25 MG VIAL 5 MG IVP (15:06)
[2024-11-03] MEDS: HYDROmorphone 2 MG/ML SYR 1 MG IVP (15:16)
[2024-11-03] MEDS: PIPERACILLIN/TAZO 4.5 GM in Normal Saline 100 ML IVPB (15:22)
--- NOTE | 2024-11-03 18:22 | GB_PTH ---
PATIENT: Shad Maxwell LOC: U#:[id number] AGE/SX: 64/M ROOM: [facility] RE11/03/[address]: Wojciech Anne MD : 1960 BED: A DIS: 11/14/2024 SPEC #: [id number] RECD: 11/04/24 12:55 STATUS: DAYANA REQ #: [id number] ALINA: 11/03/24 18:[address]: Wojciech Anne DEPT: Surgical Specimen RECD BY: Frieda Cassidy ENTERED: 11/04/24 12:55 SP TYPE: GB OTHR DR: Kimo George, BE Tissues: 1 - GALLBLADDER Procedures: GROSS AND MICRO LEVEL 3 Comments: [id number]
[2024-11-03] MEDS: Bupivacaine 0.25% Pres-Free W/EPI 30 ML VIAL (18:34)
--- NOTE | 2024-11-03 18:46 | ROE_ITS ---
Operative Note Operative Note PRE-OP DIAGNOSIS: Acute cholecystitis POST-OP DIAGNOSIS: other (Acute on chronic cholecystitis) PROCEDURE: Therapeutic bronchoscopy, laparoscopic cholecystectomy SURGEON: Wojciech Anne TRANSFORMATION COACH: Ginette Nava ANESTHESIA TYPE: General LMA/ETT Refer to Anesthesia Record ESTIMATED BLOOD LOSS: 25 PATHOLOGY: other (Gallbladder) COMPLICATIONS: Other (Aspiration on induction) Patient was transported to: ICU Patient's condition: stable Indications: Shad is a 64-year-old male with acute onset of midepigastric right upper quadrant pain. He had a leukocytosis, and a positive sonographic Denise sign all consistent with acute cholecystitis. Findings: Acutely inflamed gallbladder with dense adhesions of greater omentum Procedure Description: I met with Shad in the preoperative area, and we reviewed the plan for a laparoscopic cholecystectomy. We then went back to the operating room. He was assisted onto the OR table and padded and supported appropriately. During intubation, under direct laryngoscopy, he was noted to have some secretions, and debris in the hypopharynx raising concern for aspiration. He was intubated with a 6-1/2 endotracheal tube without any difficulty, and did experience some decreased pulse oximetry. Bronchoscopy was performed by the anesthesia service, and there was evidence of retained food debris within the distal trachea and what appeared to be the right side. He was oxygenated, and the endotracheal tube was exchanged to an 8 oh ET tube. Next, I performed therapeutic bronchoscopy to clear the airway of aspirated gastric contents. There was a minimal amount of bilious debris in the right upper lobe takeoff, this was irrig ated clear. Within the bronchus intermedius, and right lower lobe segment there appeared to be vegetative matter. Using combination of suction and irrigation, all of this was debrided clean. At that point, the endotracheal tube was backed out slightly for better visualization of the left side. Again, there was some bilious staining, and I irrigated the left lower lobe segment clean. There were some thin secretions in the left upper lobe and left lingular segment that were all suctioned clear. The endotracheal tube was then secured in place approximately 1-1/2 cm above the zoe. Next, we turned our attention to the cholecystectomy portion. The anterior abdominal wall was prepped and draped in usual fashion. I anesthetized the skin around the umbilicus and made a small infraumbilical semicircular incision. I dissected down to the umbilical ring, which was patent with a small hernia defect. This was entered under direct vision, and a 12 mm port was affixed in place. The peritoneum was insufflated. A 30 degree scope was inserted, and 5 mm ports were placed in the mid epigastrium, and right anterior abdominal wall under the direct vision of the scope with the patient in some Trendelenburg left side down positioning. The greater omentum was adherent to the dome of the gallbladder. This was dissected free using combination of electrocautery and blunt dissection. The gallbladder wall was quite attenuated as it was quite dilated. During dissection of the greater omentum off of the dome of the gallbladder, small rent was created in the gallbladder wall. There was hydrops cholecystitis. This was controlled, and we carried the dissection down along the anterior lateral wall of the gallbladder healing greater omentum off. There were thick dense adhesions here that required tedious dissection. I carried this dissection down along the infundibulum on the lateral aspect, where we encountered a large stone well impacted within the gallbladder infundibulum and cystic neck. I brought this dissection down around the underside of the infundibulum dissecting free the cystic duct. This dissection was performed with the assistance of indocyanine green. The duct itself was highlighted, and I brought the dissection medially through the triangle of Calot developing the back wall of the cystic duct. Because of the thick adhesions around the duct, it was clear that a clip angio technologist would not be sufficient. Therefore, I upsized the mid epigastric port, and the duct was divided with an Endo HERNANDEZ stapler. Great care was taken to stay well close to the gallbladder neck in an effort to avoid any injury to the common bile duct. Once this was divided, I could continue the dissection of the back wall of the gallbladder. Normal anatomy was nearly obliterated with dense adhesions, and small branches of cystic artery were controlled with the LigaSure device staying well close to the gallbladder wall. This brought us back up onto the gallbladder fossa, which was further dissected with electrocautery. Once the gallbladder was dissected off of the gallbladder fossa, was placed in the Endo Catch bag, then removed by way of the umbilical port site. This did require enlargement as the stone in the gallbladder was quite sizable. The umbilical port was then replaced in position, and the surgical site was irrigated clean. The gallbladder fossa appeared hemostatic. I saw no evidence of any bile leakage. The 12 mm port in the mid epigastrium was removed, and a Tiago Marcos port closure device was used to reapproximate this defect. The other 5 mm ports were removed, and finally the umbilical port was removed after the pneumoperitoneum was all evacuated. The umbilical fascia was closed transversely with interrupted 0 Vicryl sutures. The skin and subcutaneous tissues were irrigated, and then reapproximated with absorbable subcuticular stitches. Bandages were applied, and Shad was transferred to the PACU for extubation to high flow nasal cannula. Date of Procedure: 11/03/24
[2024-11-03] MEDS: Enoxaparin 40 MG/0.4 ML SYR SC (19:47)
--- NOTE | 2024-11-03 19:47 | W.ANESPOSTOP ---
Postoperative Evaluation Date, Time and Location Date Performed: 11/03/24 Time Performed: 19:47 Patient Location: Intensive Care Unit Vital Signs Most Recent Imported Vital Signs: Most Recent Vital Signs Temp Pulse Resp BP Pulse Ox 36.6 C 85 27 H 96/31 L 92 11/03/24 19:06 11/03/24 19:06 11/03/24 19:06 11/03/24 19:06 11/03/24 19:20 Pain Score Most Recent Pain Score: Most Recent Pain Score Pain Level 0 11/03/24 19:06 Assessment Mental Status: Arousable with meaningful communication Airway and Respiratory Function: Abnormal Respiratory exam (See explanation) (Currently on high flow NC with reasonable SPO2. ) Cardiovascular Function: Hemodynamically Stable Hydration Status: Adequately Hydrated Nausea & Vomiting: No Nausea or Vomiting Pain: Pain is tolerable per patient Peripheral Nerve Block: Patient did not receive a nerve block Postoperative Comments:: Discussed events of anesthesia with pts spouse, Ansley. She understands the he vomited on the induction of anesthesia, that he is in the ICU on high flow NC. We discussed how he is doing fair right now, and hopefully with coughing and movement her will improve over night. We also discussed that aspiration is a very serious complication of anesthesia and that it can have serious consequences including .
--- NOTE | 2024-11-03 20:40 | W.PC.ACHO ---
Registration Status: Primary Language: Preferred Language: ED Information & Data Chief Complaint Abd Prob 11/03/24 10:10 Triage Note BIBA RUQ pain with radiation 11/03/24 09:23 to the mid back started yesterday approx 1hr after dinner, has not eaten yet this AM had same type episode couple weeks ago - prior to arrival 4mg zofran - 100 fent (Last Reviewed 11/03/24 @ 15:27 by Jo Ann Rosario) H/O left knee surgery Most Recent Vital Signs Temperature 37.1 C 11/03/24 19:52 Temperature Source Temporal Artery Scan 11/03/24 19:52 Pulse 90 11/03/24 20:20 Pulse Rhythm Regular 11/03/24 14:20 Pulse 91 H 11/03/24 20:20 Respiratory Rate 23 11/03/24 20:20 Respiratory Effort Accessory Muscle Use 11/03/24 19:52 Respiratory Depth Retractive 11/03/24 19:52 Respiratory Pattern Tachypnea 11/03/24 19:52 Blood Pressure 92/62 L 11/03/24 20:11 Blood Pressure Mean 72 11/03/24 20:11 Blood Pressure Position Supine 11/03/24 15:39 Pulse Oximetry 90 L 11/03/24 20:20 Oxygen Delivery Method High Flow Nasal Cannula 11/03/24 19:52 Oxygen Flow Rate 50 11/03/24 20:32 Fraction of Inspired Oxygen (FIO2) 91 11/03/24 20:32 Pain Level 0 11/03/24 19:52 Comment Pt resting quietly with eyes closed. 11/03/24 15:38 Allergies SHIRLEY Inhibitors Adverse Reaction (Intermediate, Verified 11/03/24 14:49) angioedema indomethacin Adverse Reaction (Verified 11/03/24 14:49) N/V/D Precautions Isolation Standard precaution 11/03/24 09:36 Active Medications Generic Name Dose Route Start Last Admin Trade Name Freq PRN Reason Stop Dose Admin Enoxaparin Sodium 40 mg 11/03/24 20:00 11/03/24 19:47 Enoxaparin 40 Mg/0.4 Ml Syr SC 12/03/24 19:59 40 mg Q24H EKTA Administration Hydromorphone HCl 1 mg 11/03/24 15:08 11/03/24 15:16 Hydromorphone 2 Mg/Ml Syr IVP 12/03/24 15:07 1 mg Q2H PRN PRN Administration Sodium Chloride 0 ml 11/03/24 20:00 11/03/24 19:49 Normal Saline Flush 10 Ml Syr IVP 12/03/24 19:59 20 ml BID EKTA Administration IV IV Catheter Type [Left Hand] Peripheral IV IV Catheter Type [Right Peripheral IV Antecubital] IV Catheter Gauge [Left Hand] 20 IV Catheter Gauge [Right 18 Antecubital] Diet Orders Category Date Time Status Diet [Nothing Per Oral] [DIET] Nutrition 11/03/24 Dinner Active Nothing Per Oral [DIET] Nutrition 11/04/24 Breakfast Ordered Diagnostics 11/03/24 11/03/24 11/03/24 Range/Units 13:06 11:34 10:50 WBC (4.4-10.8) 10^3/uL RBC (4.36-5.78) 10^6/uL Hgb (13.5-17.5) g/dL Hct (40.0-50.0) % MCV (80-95) fL MCH (27.0-33.0) pg MCHC (32.0-36.0) % RDW (11.8-14.1) % Plt Count (130-400) 10^3/uL MPV (8.0-11.0) fL Immature Gran % % Neutrophils % % Lymphocytes % % Monocytes % % Eosinophils % % Basophils % % Nucleated RBC % (0.0-0.3) % Absolute Neutrophils (1.2-6.7) 10^3/uL Absolute Lymphocytes (1.2-3.4) 10^3/uL Absolute Monocytes (0.1-0.8) 10^3/uL Absolute Eosinophils (0.0-0.7) 10^3/uL Absolute Basophils (0.0-0.2) 10^3/uL Sodium 139 Potassium 4.2 Chloride 104 Carbon Dioxide 30.0 Anion Gap 5.0 BUN 12 Creatinine 1.1 Est GFR (CKD-EPI 2020) 75.43 Glucose 135 H Calcium 9.5 Magnesium 1.9 Total Bilirubin 0.4 AST 21 ALT 43 Alkaline Phosphatase 157 H Troponin I Cancelled 5 10 Total Protein 7.4 Albumin 3.8 Lipase 24 11/03/24 Range/Units 09:45 WBC 14.41 H (4.4-10.8) 10^3/uL RBC 5.59 (4.36-5.78) 10^6/uL Hgb 16.7 (13.5-17.5) g/dL Hct 47.9 (40.0-50.0) % MCV 86 (80-95) fL MCH 29.9 (27.0-33.0) pg MCHC 34.9 (32.0-36.0) % RDW 13.6 (11.8-14.1) % Plt Count 245 (130-400) 10^3/uL MPV 10.4 (8.0-11.0) fL Immature Gran % 0.3 % Neutrophils % 79.4 % Lymphocytes % 13.5 % Monocytes % 4.9 % Eosinophils % 1.4 % Basophils % 0.5 % Nucleated RBC % 0.0 (0.0-0.3) % Absolute Neutrophils 11.44 H (1.2-6.7) 10^3/uL Absolute Lymphocytes 1.95 (1.2-3.4) 10^3/uL Absolute Monocytes 0.71 (0.1-0.8) 10^3/uL Absolute Eosinophils 0.20 (0.0-0.7) 10^3/uL Absolute Basophils 0.07 (0.0-0.2) 10^3/uL Sodium Cancelled Potassium Cancelled Chloride Cancelled Carbon Dioxide Cancelled Anion Gap Cancelled BUN Cancelled Creatinine Cancelled Est GFR (CKD-EPI 2020) Cancelled Glucose Cancelled Calcium Cancelled Magnesium Cancelled Total Bilirubin Cancelled AST Cancelled ALT Cancelled Alkaline Phosphatase Cancelled Troponin I Cancelled Total Protein Cancelled Albumin Cancelled Lipase Cancelled Intake and Output - 24 Hour Total 11/03/24 09:10 thru 11/03/24 20:27 Intake Total 1870 Balance 1870 Weight 101.1 kg Intake: IV 1870 Other: Emesis Description None Falls Risk Assessment History of Falls No History 11/03/24 19:52 Contributing Factors No Factors 11/03/24 19:52 Ambulatory Aids Independent 11/03/24 19:52 Fall Total Score 0 11/03/24 19:52 Level of Risk Standard/Low Risk 11/03/24 19:52 Problems (Last Reviewed 11/03/24 @ 15:27 by Jo Ann Rosario) Acute cholecystitis (Acute) v v v v v v v v v Sending and/or Receiving Nurses: Please use comment section below to note any information pertinent to the patient hand-off not included above. Information / Comments: Report received from: Brandon Mauro, Anaesthesia
[2024-11-03] MEDS: Simethicone 80 MG CHEW 40 MG PO (21:16)
[2024-11-03] MEDS: Bisacodyl 5 MG TABEC PO (21:16)
[2024-11-03] MEDS: Lactated Ringers 1,000 ML 75 ML IV (23:41)
[2024-11-04] VITALS (36 sets, daily range): BP systolic 93–134; BP diastolic 66–95; PULSE 71–98; RESP 19–35; TEMP 31–37.8; O2SAT 87–96
--- NOTE | 2024-11-04 | DI.RAD_ITS ---
Exam(s) XR PORTABLE CHEST AP EXAM: XR PORTABLE CHEST AP CLINICAL HISTORY: asipiration TECHNIQUE: 2D digital imaging was performed of the chest. One image was obtained. An AP view was ob tained. COMPARISON: CR LEFT RIBS TO INCLUDE CXR from 05/17/2014 FINDINGS: MEDIASTINUM: Normal. HEART: Normal. PULMONARY VASCULATURE: Normal. LUNGS: Multifocal opacities are seen in the lungs bilaterally. There are low lung volumes. PLEURAL SPACE: No pleural effusion or pneumothorax. BONE:Within normal limits for the patient's age. OTHER FINDINGS:Normal. IMPRESSION: Multifocal infiltrate suspicious for pneumonia. DATA REPOSITORY: RADIATION DOSE DELIVERED:
[2024-11-04] MEDS: ACETAMINOPHEN 1,000 MG/100 ML BTL 400 MG IVPB ×2 (01:46→09:59)
[2024-11-04] MEDS: Normal Saline Flush 10 ML SYR IVP ×3 (05:41→19:22)
--- NOTE | 2024-11-04 05:56 | RESPIRATORY ---
Rt called to pacu (pt had aspiration event during intubation for surgery) to place pt on airvo system post extubation. Pt was extubated in pacu w/out complication, strong cough and tolerated hhfnc well. T/o the night Rt able to titrate fio2 down. Vibra pep given to pt and used with instructions. Will continue to monitor and work on airway clearance while titrating high flow.
[2024-11-04 06:19] LABS: HCT 45.8 % (40.0-50.0); HGB 15.3 g/dL (13.5-17.5); MCH 28.9 pg (27.0-33.0); MCHC 33.4 % (32.0-36.0); MCV 87 fL (80-95); MPV 10.6 fL (8.0-11.0); Platelet Count 199 10^3/uL (130-400); RBC 5.29 10^6/uL (4.36-5.78); RDW 13.6 % (11.8-14.1); RDW-SD 42.9 fL
[2024-11-04 06:32] LABS: Anion Gap 9.5 mmol/L (3-11); BUN 17 mg/dL (7-18); CO2 23.5 mmol/L (21.0-32.0); CREATININE 1.6 mg/dL (0.70-1.30); Calcium 9.2 mg/dL (8.5-10.1); Chloride 104 mmol/L (98-107); Estimated GFR 48.11 (mL/min/1.73m2); Glucose 213 mg/dL (74-106); Potassium 4.9 mmol/L (3.5-5.1); Sodium 137 mmol/L (136-145)
[2024-11-04] MEDS: Polyethylene Glycol 3350 17 GM PACKET PO ×2 (08:34→19:21)
[2024-11-04] MEDS: Metoprolol CR 25 MG TABCR PO (08:35)
[2024-11-04] MEDS: Omeprazole 10 MG CAPCR PO (08:36)
[2024-11-04] MEDS: Allopurinol 300 MG TAB 450 MG PO (08:36)
[2024-11-04] MEDS: amLODIPine 10 MG TAB PO (08:36)
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
--- NOTE | 2024-11-04 10:00 | PGE_ITS ---
Date of Service Date of service: 11/04/24 Time of Service: 10:00 Assessment and Plan Assessment and plan (1) Acute cholecystitis: Status: Acute Assessment and plan: 64-year-old man postop day 1 from laparoscopic cholecystectomy. He did have an aspiration event causing aspiration pneumonitis. He is hemodynamically stable on high flow nasal cannula and his abdomen is benign and he is otherwise doing well outside of his respiratory issues. Overall plan: Wean oxygen down as tolerated Clear liquid diet Out of bed in chair, ambulate if and when possible Incentive spirometry DVT prophylaxis Probably can be out of ICU once oxygen is weaning down. Subjective Subjective Interval history since last seen: No issues overnight. Still on high flow nasal cannula and saturating 92-93%. He has no abdominal pain and no complaints in his abdomen. Exam Narrative Exam Narrative: Gen: Non-toxic, comfortable and interactive Neuro: Alert and oriented x3 Psych: Good mood and affect. Good insight and understanding into condition. Chest: Non-labored breathing, no wheezing, no visible shortness of breath. High flow nasal cannula Heart: Regular Abdomen: Soft, obese, no noticeable distention, no significant tenderness anywhere. Incisions are perfect. Objective Last Vital Signs Temp 96.6 F L 11/04/24 05:42 Pulse 98 H 11/04/24 07:00 Resp 32 H 11/04/24 07:00 BP 97/81 L 11/04/24 07:00 Pulse Ox 93 11/04/24 09:00 Laboratory Results - last 24 hr 11/03/24 11/03/24 11/03/24 09:45 10:50 11:34 WBC 14.41 H RBC 5.59 Hgb 16.7 Hct 47.9 MCV 86 MCH 29.9 MCHC 34.9 RDW 13.6 Plt Count 245 MPV 10.4 Immature Gran % 0.3 Neutrophils % 79.4 Lymphocytes % 13.5 Monocytes % 4.9 Eosinophils % 1.4 Basophils % 0.5 Nucleated RBC % 0.0 Absolute Neutrophils 11.44 H Absolute Lymphocytes 1.95 Absolute Monocytes 0.71 Absolute Eosinophils 0.20 Absolute Basophils 0.07 Sodium Cancelled 139 Potassium Cancelled 4.2 Chloride Cancelled 104 Carbon Dioxide Cancelled 30.0 Anion Gap Cancelled 5.0 BUN Cancelled 12 Creatinine Cancelled 1.1 Est GFR (CKD-EPI 2020) Cancelled 75.43 Glucose Cancelled 135 H Calcium Cancelled 9.5 Magnesium Cancelled 1.9 Total Bilirubin Cancelled 0.4 AST Cancelled 21 ALT Cancelled 43 Alkaline Phosphatase Cancelled 157 H Troponin I Cancelled 10 5 Total Protein Cancelled 7.4 Albumin Cancelled 3.8 Lipase Cancelled 11/03/24 11/04/24 13:06 05:25 WBC 11.70 H RBC 5.29 Hgb 15.3 Hct 45.8 MCV 87 MCH 28.9 MCHC 33.4 RDW 13.6 Plt Count 199 MPV 10.6 Immature Gran % Neutrophils % Lymphocytes % Monocytes % Eosinophils % Basophils % Nucleated RBC % Absolute Neutrophils Absolute Lymphocytes Absolute Monocytes Absolute Eosinophils Absolute Basophils Sodium 137 Potassium 4.9 Chloride 104 Carbon Dioxide 23.5 Anion Gap 9.5 BUN 17 Creatinine 1.6 H Est GFR (CKD-EPI 2020) 48.11 Glucose 213 H Calcium 9.2 Magnesium Total Bilirubin AST ALT Alkaline Phosphatase Troponin I Cancelled Total Protein Albumin Lipase Time Spent with Patient Time Spent with Patient: 25-34 minutes Time was spent: preparing to see the patient(eg.review tests), obtaining and/or reviewing separately otained hiistory, ordering medications,tests, procedures, referring, communicating with other health career services coordinator, indepentently interpreting results, counseling the patient and care coordination
[2024-11-04] MEDS: Acetaminophen 500 MG TAB 1000 MG PO ×2 (15:54→21:26)
[2024-11-04] MEDS: Enoxaparin 40 MG/0.4 ML SYR SC (19:22)
[2024-11-05] VITALS (20 sets, daily range): BP systolic 101–127; BP diastolic 64–93; PULSE 76–95; RESP 20; TEMP 36.7–38.1; O2SAT 87–93
[2024-11-05] MEDS: Acetaminophen 500 MG TAB 1000 MG PO ×4 (04:38→22:20)
[2024-11-05] MEDS: Metoprolol CR 25 MG TABCR PO (08:08)
[2024-11-05] MEDS: Omeprazole 10 MG CAPCR PO (08:08)
[2024-11-05] MEDS: amLODIPine 10 MG TAB PO (08:08)
[2024-11-05] MEDS: Polyethylene Glycol 3350 17 GM PACKET PO ×2 (08:08→20:23)
[2024-11-05] MEDS: Allopurinol 300 MG TAB 450 MG PO (08:09)
[2024-11-05] MEDS: Normal Saline Flush 10 ML SYR IVP ×2 (08:09→20:23)
--- NOTE | 2024-11-05 08:14 | W.PM.PROGNOT ---
Date of Service Date of service: 11/05/24 Time of Service: 08:14 Assessment and Plan Assessment and plan (1) Aspiration pneumonitis after procedure: Status: Acute Assessment and plan: 64-year-old man is postop day 2 from laparoscopic cholecystectomy where he sustained an aspiration event. He is hemodynamically stable and his respiratory situation is also stable and improving. He looks great objectively as well as subjectively he feels really good. Plan: Low?fat diet as tolerated Out of bed and ambulate Incentive spirometry/pulmonary toilet Repeat a chest x-ray routinely DVT prophylaxis Wean off oxygen, hopeful discharge home tomorrow once he is off of oxygen requirements Subjective Subjective Interval history since last seen: Shad looks great today. He feels really good. He is coughing a bunch intentionally stuff is coming up. He is down to 3 L on nasal cannula. He was discharged out of ICU yesterday. He has no abdominal pain. He is really hungry. Exam Narrative Exam Narrative: Gen: Non-toxic, comfortable and interactive Neuro: Alert and oriented x3 Psych: Good mood and affect. Good insight and understanding into condition. Chest: Non-labored breathing, no wheezing, no visible shortness of breath. Heart: Regular Abdomen: Soft, obese, no significant distention, no tenderness. Incisions look perfect. Objective Last Vital Signs Temp 99.3 F 11/05/24 04:45 Pulse 81 11/05/24 01:32 Resp 23 11/04/24 18:03 BP 118/86 11/05/24 04:42 Pulse Ox 93 11/05/24 07:57 Time Spent with Patient Time Spent with Patient: <25 minutes Time was spent: preparing to see the patient(eg.review tests), obtaining and/or reviewing separately otained hiistory, ordering medications,tests, procedures, indepentently interpreting results, counseling the patient and care coordination
--- NOTE | 2024-11-05 09:25 | DI.RAD_ITS ---
Exam(s) XR CHEST 2V PA LATERAL EXAM: XR CHEST 2V PA LATERAL CLINICAL HISTORY: assess ongoing aspiration pneumonitis / PNA TECHNIQUE: 2D digital imaging was performed of the chest. Two images were obtained. PA and lateral views were obtained. COMPARISON: MR MR LUMBAR SPINE WO from 07/17/2023 CR XR PORTABLE CHEST AP from 11/04/2024 FINDINGS: MEDIASTINUM: Normal. HEART: Normal. PULMONARY VASCULATURE: Normal. LUNGS: Worsening multifocal pulmonary infiltrates. There has been progression particularly the upper lobe since the prior examination. PLEURAL SPACE: No pleural effusion or pneumothorax. BONE:Within normal limits for the patient's age. There is an old L1 compression fracture deformity. OTHER FINDINGS:Normal. IMPRESSION: Interval progression of the multifocal infiltrates suspicious for pneumonia. Pulmonary edema should also be considered. Please correlate clinically. DATA REPOSITORY: RADIATION DOSE DELIVERED:
[2024-11-05 10:56] LABS: Anion Gap 9.4 mmol/L (3-11); BUN 17 mg/dL (7-18); CO2 25.6 mmol/L (21.0-32.0); CREATININE 1.2 mg/dL (0.70-1.30); Calcium 9.4 mg/dL (8.5-10.1); Chloride 100 mmol/L (98-107); Estimated GFR 67.95 (mL/min/1.73m2); Glucose 136 mg/dL (74-106); Potassium 4.1 mmol/L (3.5-5.1); Sodium 135 mmol/L (136-145)
--- NOTE | 2024-11-05 11:14 | CMPROGNOTE_ITS ---
Date of service: 11/05/24 Time of Service: 11:14 Care Management Progress Note Progress Note Text Progress Note Text: Shad was lying in bed, visiting with his in the room, when CM arrived. Shad states he is feeling better than he had been. Shad and Nelly deny needing anything, and feel well equipped for his return home, at this time. CM will continue to follow. Discharge Potential Discharge Needs: PCP F/U Appt and Surgical F/U Appt Anticipated Barriers to Discharge: None Identified Patient/Family Education Needs: Review discharge instructions, discuss Ask Me Three Transportation: Private vehicle Plan: Shad will be discharged home with no new services when medically cleared. He will follow up with his surgeon, PCP an plan of care and transport with family. CM will follow and continue to assess for discharge concerns. Social Determinants of Health Screening Social Determinants of health last assessed in clinic: 11/05/24 Will the Patient Participate in the Screening?: Yes Do you worry about having a steady place to live?: no Problems where you live: no known problems In the past 12 months, have you had to go without electric, gas, oil or water in your home?: no 1. Within the past 12 months, we worried whether our food would run out before we got money to buy more.: Never true 2. Within the past 12 months, the food we bought just didn't last and we didn't have money to get more.: Never true Has lack of transportation kept you from medical appointments or from doing things needed for daily living?: no Has anyone in your life made you feel unsafe or unsupported?: no How hard is it for you to pay for the very basics like food, housing, medical care, and heating? Would you say it is:: Not hard at all Do you want help finding or keeping work or a job?: I do not need or want help If for any reason you need help with day-to-day activities such as bathing, preparing meals, shopping, managing finances, etc., do you get the help you need?: I don?t need any help How often do you feel lonely or isolated from those around you?: Never Do you speak a language other than [place] at home?: No Does the patient want assistance with any of the above?: No
[2024-11-05] MEDS: Enoxaparin 40 MG/0.4 ML SYR SC (20:22)
[2024-11-06] VITALS (11 sets, daily range): BP systolic 98–118; BP diastolic 63–71; PULSE 77–90; RESP 16–32; TEMP 36.2–37.8; O2SAT 89–94
--- NOTE | 2024-11-06 | DI.CT_ITS ---
Exam(s) CT CHEST PE CTA EXAM: CT CHEST PE CTA CLINICAL HISTORY: sob. TECHNIQUE: Imaging Protocol: Axial CT angiography was performed with multi-slice acquisition and mu lti-planar and/or 3D reconstructions. Lung Computer Aided Detection (CAD) was utilized. CONTRAST MATERIAL: Intravenous: Omnipaque 350 contrast volume:85 mL COMPARISON: CR,XR XR PORTABLE CHEST AP from 11/06/2024 FINDINGS: There is artifact secondary to the patient's positioning of the upper extremities. The examination i s limited due to patient motion artifact. Tracheobronchial tree: Patent where visualized. No bronchiectasis. Pulmonary parenchyma: There is a multifocal ground-glass infiltrate involving all 5 lobes consistent with pneumonia. No architectural distortion. Pulmonary Arteries: Evaluation of the pulmonary arteries is suboptimal due to patient motion and opac ification. Within the limits of the examination, no pulmonary embolism is present. Mediastinum and Connie: Reactive lymph nodes are seen in the mediastinum. The esophagus is grossly unr emarkable. There is a small hiatal hernia. Visualized thyroid gland: There is a 1.7 cm hypodense nodule in the inferior aspect of the right lobe of the thyroid gland. Nonemergent thyroid ultrasound is recommended for further evaluation. Pleura: No effusion or pneumothorax. Heart: The heart is mildly enlarged. No coronary artery calcifications are seen. No pericardial effu adam. Aorta: Thoracic aorta non-dilated. No evidence of dissection. Upper abdomen: Unremarkable. Soft tissues: There is bilateral gynecomastia. Bones: Within normal limits for the patient's age.There is a stable old L1 compression deformity. IMPRESSION: 1. Examination is limited by patient motion artifact and patient positioning. 2. Within the limits of the examination, no pulmonary embolism is present. 3. Diffuse multifocal ground-glass infiltrates consistent with pneumonia. 4. Right thyroid nodule. Nonemergent thyroid ultrasound is recommended for further evaluation. Unexpected findings RADIATION DOSE DELIVERED: 211.14mGy.cm Total DLP DATA REPOSITORY: All CT scans at this facility are submitted to the National Radiology Data Registry (NRDR) Dose Index Registry (DIR) with the [employer] (A[employer]). RADIATION OPTIMIZATION: All CT scans at this facility use at least one of these dose optimization te chniques: automated exposure control; mA and/or kV adjustment per patient size (includes targeted exa ms where dose is matched to clinical indication); or iterative reconstruction.
--- NOTE | 2024-11-06 01:54 | NUR.NOTE ---
Nursing note Pt resting in recliner. Eyes closed. Resp 40's/min. Sleep apnea noted. Sats on 5L while resting 87%. Awakens to voice. Enc deep breathe. Oxygen sats inc to 93% but return to upper 80's while at rest. Denies needs.
[2024-11-06] MEDS: Acetaminophen 500 MG TAB 1000 MG PO ×4 (04:04→21:29)
--- NOTE | 2024-11-06 04:15 | RT.EKG_ITS ---
APPROVED REPORT Exam: Resting ECG Reason for Exam: Respiratory distress Patient Location: I HR:85 bpm ECG Measurements Heart Rate 85 AXIS ME 133 P 18 QRSd 95 QRS 3 QT 382 T -3 QTc 455 Conclusion Sinus rhythm...normal P axis, V-rate 50- 99 Low voltage, precordial leads...precordial leads <1.0mV Otherwise normal ECG
[2024-11-06 04:41] LABS: BE (Venous) 2 mmol/L (-2-3); HCO3 (Venous) 25 mmol/L (23-28); O2 Sat (Venous) 97 %; TCO2 (Venous) 22 mmol/L (24-29); pCO2 (Venous) 33 mmHg (41-51); pO2 (Venous) 75 mmHg
[2024-11-06 04:45] LABS: Abs Immature Grans 0.26 10^3/uL (0.0-0.06); Absolute Basophil Count 0.03 10^3/uL (0.0-0.2); Absolute Eosinophil Count 0.08 10^3/uL (0.0-0.7); Absolute Lymphocyte Count 1.32 10^3/uL (1.2-3.4); Basophils % 0.2 %; Eosinophils % 0.5 %; HCT 39.4 % (40.0-50.0); HGB 13.6 g/dL (13.5-17.5); Immature Grans % 1.7 %; Lymphocytes % 8.4 %; MCH 29.9 pg (27.0-33.0); MCHC 34.5 % (32.0-36.0); MCV 87 fL (80-95); MPV 10.4 fL (8.0-11.0); Monocytes % 2.5 %; Neutrophils % 86.7 %; Platelet Count 187 10^3/uL (130-400); RBC 4.55 10^6/uL (4.36-5.78); RDW 13.8 % (11.8-14.1); RDW-SD 43.5 fL; WBC 15.69 10^3/uL (4.4-10.8)
[2024-11-06 04:46] LABS: Absolute Monocyte Count 0.39 10^3/uL (0.1-0.8)
--- NOTE | 2024-11-06 04:56 | DI.RAD_ITS ---
Exam(s) XR PORTABLE CHEST AP EXAM: XR PORTABLE CHEST AP CLINICAL HISTORY: acute SOB, worse hypoxia. TECHNIQUE: 2D digital imaging was performed. COMPARISON: CR LEFT RIBS TO INCLUDE CXR from 05/17/2014 CR XR CHEST 2V PA LATERAL from 11/05/2024 FINDINGS: Single AP portable view. Heart size is unchanged. Mediastinum not widened. There is no radiographic improvement in the extensive bilateral lung infiltrates, both interstitial a nd confluent. Indeed, there is slight further increase. No obvious pleural effusions. Incidentally noted is a sclerotic bone lesion in the proximal diaphysis of the left humerus which was evident on the 2014 images. This is probably an enchondroma IMPRESSION: Worsening-increased bilateral pulmonary infiltrates. Main consideration is for infectious etiology g iven the normal heart size. However, cannot also exclude an element of pulmonary edema. There are n o pleural effusions evident. DATA REPOSITORY: RADIATION DOSE DELIVERED:
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
[2024-11-06 05:03] LABS: ALT 48 U/L (16-63); AST 26 U/L (15-37); Albumin 2.6 g/dL (3.4-5.0); Alkaline Phosphatase 121 U/L (46-116); Anion Gap 7.7 mmol/L (3-11); BUN 21 mg/dL (7-18); Bilirubin, Total 1.3 mg/dL (0.2-1.0); CO2 26.3 mmol/L (21.0-32.0); CREATININE 1.1 mg/dL (0.70-1.30); Calcium 8.8 mg/dL (8.5-10.1); Chloride 100 mmol/L (98-107); Estimated GFR 75.43 (mL/min/1.73m2); Glucose 132 mg/dL (74-106); Magnesium 1.8 mg/dL (1.8-2.4); Potassium 3.8 mmol/L (3.5-5.1); Sodium 134 mmol/L (136-145); Total Protein 6.7 g/dL (6.4-8.2)
[2024-11-06 05:06] LABS: Troponin I 5 ng/L (<or=76)
--- NOTE | 2024-11-06 05:42 | DI.VRAD_ITS ---
PROCEDURE INFORMATION: Exam: XR Chest Exam date and time: 11/06/2024 4:45 AM Age: 64 years old Clinical indication: Shortness of breath and other: Worse hypoxia; Worse hypoxia, acute SOB TECHNIQUE: Imaging protocol: Radiologic exam of the chest. Views: 1 view. COMPARISON: CR XR CHEST 2V PA LATERAL 11/05/2024 9:06 AM FINDINGS: Lungs: Persistent extensive bilateral pulmonary opacities, increased from prior study. Pleural spaces: No large pleural effusion seen. Heart/Mediastinum: Cardiac silhouette magnified by AP technique. Bones/joints: No acute abnormality. IMPRESSION: Increased bilateral pulmonary opacities. Consider edema, infection. Follow-up as clinically warranted. Dictated and Authenticated by: Lucia Vicente MD. Orderin Nancy Catalan MD
[2024-11-06] MEDS: Furosemide 20 MG/2 ML VIAL IVP (05:44)
[2024-11-06 05:54] LABS: NT-proBNP 268 pg/mL (<300)
[2024-11-06 07:17] LABS: Bilirubin Negative (Negative); Blood Trace-lysed (Negative); Clarity Clear (Clear); Glucose Negative (Negative); Ketones 15 mg/dL (Negative); Leukocyte Esterase Negative (Negative); Nitrite Negative (Negative); Urobilinogen >=8.0 mg/dL (Up to 0.2)
[2024-11-06 07:24] LABS: Bacteria Moderate HPF (Negative); C & S Indicated? No; Casts Negative LPF (Negative); Crystals Negative HPF (Negative); Epithelial Cells Rare HPF (Negative); Mucus Moderate (Negative); WBC 0-2 HPF (0-5)
[2024-11-06] MEDS: Allopurinol 300 MG TAB 450 MG PO (07:46)
[2024-11-06] MEDS: Metoprolol CR 25 MG TABCR PO (07:46)
[2024-11-06] MEDS: Omeprazole 10 MG CAPCR PO (07:46)
[2024-11-06] MEDS: amLODIPine 10 MG TAB PO (07:46)
[2024-11-06] MEDS: Normal Saline Flush 10 ML SYR IVP ×2 (07:46→20:17)
--- NOTE | 2024-11-06 08:21 | W.PM.PROGNOT ---
Date of Service Date of service: 11/06/24 Time of Service: 08:21 Assessment and Plan Assessment and plan (1) Aspiration pneumonitis after procedure: Status: Acute Assessment and plan: 64-year-old man is postop day 3 from a laparoscopic cholecystectomy where he had an aspiration event. From a surgical standpoint he is doing well. His abdomen is baseline. He has no subjective abdominal complaints. He is having bowel function and tolerating p.o. His respiratory issues are the only ongoing problem. He is not tachypneic though he does have high O2 requirements right now.(6L) I appreciate the hospitalist input. Unclear whether or not we should initiate antibiotics at this stage. He does have a persistent white blood cell count but is not having fevers. He does not really have a cough unless he induces it himself. I still think this is most likely simply aspiration pneumonitis rather than pneumonia. He is not having any respiratory insufficiency at this time. Overall plan: Defer to hospitalist in regards to antibiotics or not Continue pulmonary toilet, chest PT, respiratory therapy consultation/advice Continue incentive spirometer I encouraged him to do be out of bed and ambulate is much as possible during the daytime He can otherwise stay on a low-fat diet He can be discharged home once he is weaned off of oxygen Subjective Subjective Interval history since last seen: Really no new changes. Overnight he reportedly had worsening Tachypnea and higher O2 requirements. At the bedside however he says he feels fine other than being tired and fatigued. He has been tolerating food just fine. His abdomen is not hurting or bothering him. He has been having bowel function and has had a bowel movement each day. He is using incentive spirometer and continuing to perform deep breathing and coughing. Yesterday he had a temperature of 100.4 but has not had a fever in the last 24 hours. Exam Narrative Exam Narrative: Gen: Non-toxic, comfortable and interactive. He does not look to be in any extremis or discomfort. His respiratory effort does not appear labored or difficult. Neuro: Alert and oriented x3 Psych: Good mood and affect. Good insight and understanding into condition. Chest: Non-labored breathing, no wheezing, no visible shortness of breath. He is requiring 6 L of oxygen at the bedside. Heart: Regular Abdomen: Soft, obese, no significant distention, no tenderness, his incisions look perfect. Objective Last Vital Signs Temp 97.2 F L 11/06/24 07:44 Pulse 77 11/06/24 07:44 Resp 16 11/06/24 07:44 BP 112/71 11/06/24 07:44 Pulse Ox 92 11/06/24 07:44 Laboratory Results - last 24 hr 11/05/24 11/06/24 11/06/24 10:35 04:35 06:20 WBC 15.69 H RBC 4.55 Hgb 13.6 Hct 39.4 L MCV 87 MCH 29.9 MCHC 34.5 RDW 13.8 Plt Count 187 MPV 10.4 Immature Gran % 1.7 Neutrophils % 86.7 Lymphocytes % 8.4 Monocytes % 2.5 Eosinophils % 0.5 Basophils % 0.2 Nucleated RBC % 0.0 Absolute Neutrophils 13.60 H Absolute Lymphocytes 1.32 Absolute Monocytes 0.39 Absolute Eosinophils 0.08 Absolute Basophils 0.03 VBG pH 7.50 H VBG pCO2 33 L VBG pO2 75 VBG HCO3 25 VBG Total CO2 22 L VBG O2 Saturation 97 VBG Base Excess 2 Sodium 135 L 134 L Potassium 4.1 3.8 Chloride 100 100 Carbon Dioxide 25.6 26.3 Anion Gap 9.4 7.7 BUN 17 21 H Creatinine 1.2 1.1 Est GFR (CKD-EPI 2020) 67.95 75.43 Glucose 136 H 132 H Calcium 9.4 8.8 Magnesium 1.8 Total Bilirubin 1.3 H AST 26 ALT 48 Alkaline Phosphatase 121 H Troponin I 5 NT-Pro-B Natriuret Pep 268 Total Protein 6.7 Albumin 2.6 L Urine Color Yellow Urine Clarity Clear Urine pH 6.0 Ur Specific [place] 1.010 Urine Protein Trace Urine Ketones 15 H Urine Blood Trace-lysed H Urine Nitrite Negative Urine Bilirubin Negative Urine Urobilinogen >=8.0 H Ur Leukocyte Esterase Negative Urine RBC 3-5 H Urine WBC 0-2 Ur Epithelial Cells Rare Urine Crystals Negative Urine Bacteria Moderate Urine Casts Negative Urine Mucus Moderate Ur Culture Indicated? No Urine Glucose Negative 11/06/24 08:05 WBC RBC Hgb Hct MCV MCH MCHC RDW Plt Count MPV Immature Gran % Neutrophils % Lymphocytes % Monocytes % Eosinophils % Basophils % Nucleated RBC % Absolute Neutrophils Absolute Lymphocytes Absolute Monocytes Absolute Eosinophils Absolute Basophils VBG pH VBG pCO2 VBG pO2 VBG HCO3 VBG Total CO2 VBG O2 Saturation VBG Base Excess Sodium Cancelled Potassium Cancelled Chloride Cancelled Carbon Dioxide Cancelled Anion Gap Cancelled BUN Cancelled Creatinine Cancelled Est GFR (CKD-EPI 2020) Cancelled Glucose Cancelled Calcium Cancelled Magnesium Total Bilirubin AST ALT Alkaline Phosphatase Troponin I NT-Pro-B Natriuret Pep Total Protein Albumin Urine Color Urine Clarity Urine pH Ur Specific [place] Urine Protein Urine Ketones Urine Blood Urine Nitrite Urine Bilirubin Urine Urobilinogen Ur Leukocyte Esterase Urine RBC Urine WBC Ur Epithelial Cells Urine Crystals Urine Bacteria Urine Casts Urine Mucus Ur Culture Indicated? Urine Glucose Time Spent with Patient Time Spent with Patient: 25-34 minutes Time was spent: preparing to see the patient(eg.review tests), obtaining and/or reviewing separately otained hiistory, ordering medications,tests, procedures, referring, communicating with other health health and social care teacher, indepentently interpreting results, counseling the patient and care coordination
--- NOTE | 2024-11-06 10:02 | PGE_ITS ---
Date of Service Date of service: 11/06/24 Time of Service: 10:02 Assessment and Plan Assessment and plan (1) Acute hypoxic respiratory failure: Status: Acute Assessment and plan: Initially aspiration event at intubation. Appears to have been slowly improving with supportive care until this morning. EKG and initial troponins reassuring that no ACS. repeat one more trop in 3 hours. CXR does not suggest a consolidating pneumonia, no fevers, though WBC increased. Could consider treating with antibiotics at this point. CXR does suggest some fluid overload. He is fluid up with surgery. Get BNaP, try IV furosemide x 1 Not tachycardic and EKG does not suggest R heart strain, but must consider PE in post-op setting, consider CTA if not improving with other interventions Will review recommendation with Dr. Taylor to finalize plan 90 minutes spent from initial bedside evaluation to chart review and care coordination At this point with a benign lung exam/no fever I don't see compelling evidence for abx. Pt does have an elevated WBC, but this is almost certainly 2/2 recent surgery. Will monitor fever curve and WBC. There is also a component of antibiotic stewardship which needs to be kept in mind. Subjective Subjective Interval history since last seen: Pt seen and examined in his room. PT denies f/c/n/v. POC d/w pt as well as with GS (Claudia). Exam Narrative Exam Narrative: GEN: Alert and oriented x 4, pleasant and cooperative, gives linear history, mild respiratory distress at rest. HEENT: Head atraumatic. Conjunctiva clear, no icterus. no rhinorrhea. MMM, OP benign. Neck is supple with no masses or lymphadenopathy, trachea midline LUNGS: CTAB NO AMU. Speaking in complete sentences CV: Regular with some skipped beats at times, no murmurs, gallops, or rubs. ABD: active bowel sounds, soft, minimally tender and nondistended. Port scars c/d/i EXT: no cyanosis, clubbing, or edema MSK: No joint redness or swelling NEURO: CN 2-12 grossly intact. Normal movement of 4 extremities. Normal speech and coordination. No tremor SKIN: No rashes or open wounds. surgical wounds benign PSYCH: normal mood and affect Objective Last Vital Signs Temp 36.2 C L 11/06/24 07:44 Pulse 77 11/06/24 07:44 Resp 16 11/06/24 07:44 BP 112/71 11/06/24 07:44 Pulse Ox 91 L 11/06/24 09:01 Laboratory Results - last 24 hr 11/05/24 11/06/24 11/06/24 10:35 04:35 06:20 WBC 15.69 H RBC 4.55 Hgb 13.6 Hct 39.4 L MCV 87 MCH 29.9 MCHC 34.5 RDW 13.8 Plt Count 187 MPV 10.4 Immature Gran % 1.7 Neutrophils % 86.7 Lymphocytes % 8.4 Monocytes % 2.5 Eosinophils % 0.5 Basophils % 0.2 Nucleated RBC % 0.0 Absolute Neutrophils 13.60 H Absolute Lymphocytes 1.32 Absolute Monocytes 0.39 Absolute Eosinophils 0.08 Absolute Basophils 0.03 VBG pH 7.50 H VBG pCO2 33 L VBG pO2 75 VBG HCO3 25 VBG Total CO2 22 L VBG O2 Saturation 97 VBG Base Excess 2 Sodium 135 L 134 L Potassium 4.1 3.8 Chloride 100 100 Carbon Dioxide 25.6 26.3 Anion Gap 9.4 7.7 BUN 17 21 H Creatinine 1.2 1.1 Est GFR (CKD-EPI 2020) 67.95 75.43 Glucose 136 H 132 H Calcium 9.4 8.8 Magnesium 1.8 Total Bilirubin 1.3 H AST 26 ALT 48 Alkaline Phosphatase 121 H Troponin I 5 NT-Pro-B Natriuret Pep 268 Total Protein 6.7 Albumin 2.6 L Urine Color Yellow Urine Clarity Clear Urine pH 6.0 Ur Specific [place] 1.010 Urine Protein Trace Urine Ketones 15 H Urine Blood Trace-lysed H Urine Nitrite Negative Urine Bilirubin Negative Urine Urobilinogen >=8.0 H Ur Leukocyte Esterase Negative Urine RBC 3-5 H Urine WBC 0-2 Ur Epithelial Cells Rare Urine Crystals Negative Urine Bacteria Moderate Urine Casts Negative Urine Mucus Moderate Ur Culture Indicated? No Urine Glucose Negative 11/06/24 08:05 WBC RBC Hgb Hct MCV MCH MCHC RDW Plt Count MPV Immature Gran % Neutrophils % Lymphocytes % Monocytes % Eosinophils % Basophils % Nucleated RBC % Absolute Neutrophils Absolute Lymphocytes Absolute Monocytes Absolute Eosinophils Absolute Basophils VBG pH VBG pCO2 VBG pO2 VBG HCO3 VBG Total CO2 VBG O2 Saturation VBG Base Excess Sodium Cancelled Potassium Cancelled Chloride Cancelled Carbon Dioxide Cancelled Anion Gap Cancelled BUN Cancelled Creatinine Cancelled Est GFR (CKD-EPI 2020) Cancelled Glucose Cancelled Calcium Cancelled Magnesium Total Bilirubin AST ALT Alkaline Phosphatase Troponin I NT-Pro-B Natriuret Pep Total Protein Albumin Urine Color Urine Clarity Urine pH Ur Specific [place] Urine Protein Urine Ketones Urine Blood Urine Nitrite Urine Bilirubin Urine Urobilinogen Ur Leukocyte Esterase Urine RBC Urine WBC Ur Epithelial Cells Urine Crystals Urine Bacteria Urine Casts Urine Mucus Ur Culture Indicated? Urine Glucose Time Spent with Patient Time Spent with Patient: 25-34 minutes Time was spent: preparing to see the patient(eg.review tests), obtaining and/or reviewing separately otained hiistory, ordering medications,tests, procedures, referring, communicating with other health ambulatory care, indepentently interpreting results, counseling the patient and care coordination
[2024-11-06 13:13] LABS: Lab Add On Test DONE
[2024-11-06] MEDS: Normal Saline - Diluent 50 ML VIAL IJ (13:31)
--- NOTE | 2024-11-06 16:04 | PHA.REVIEW2 ---
Pharmacy Admission Review Admission Clinical Review Admission Pharmacy Review: Acute hypoxic respiratory failure (Acute) Aspiration pneumonitis after procedure (Acute) Acute cholecystitis (Acute) SHIRLEY Inhibitors Adverse Reaction (Intermediate, Verified 11/03/24 14:49) angioedema indomethacin Adverse Reaction (Verified 11/03/24 14:49) N/V/D Resuscitation Status Full Code Height 5 ft 6.5 in Weight 100 kg Pharmacy Admission Review Renal Dosing Renal Dosing: BUN Cancelled 11/06/24 08:05 Creatinine Cancelled 11/06/24 08:05 Medications needing adjustments: Reviewed Anticoagulation Anticoagulation: Hgb 13.6 g/dL (13.5-17.5) 11/06/24 04:35 Hct 39.4 % (40.0-50.0) L 11/06/24 04:35 Plt Count 187 10^3/uL (130-400) 11/06/24 04:35 Creatinine Cancelled 11/06/24 08:05 DVT Prophylaxis: Reviewed Opiate Usage Evaluate Pain Scale/Pains Meds: N/A Relevant Labs Relevant Labs: Sodium Cancelled 11/06/24 08:05 Potassium Cancelled 11/06/24 08:05 Chloride Cancelled 11/06/24 08:05 Magnesium 1.8 mg/dL (1.8-2.4) 11/06/24 04:35 Electrolytes, C-Reactive P, ESR: Reviewed DM Control DM Control: Reviewed Cardiac Review Cardiac Review: Troponin I 5 ng/L (<or=76) 11/06/24 04:35 NT-Pro-B Natriuret Pep 268 pg/mL (<300) 11/06/24 04:35 BP, HR, EF%: Reviewed QTc Review QTc: Reviewed List meds needing interventions: [id number] IV to PO Switch IV Medications: Reviewed Home Meds Home Med List reviewed: Reviewed Relevent Home Meds Not ordered & why?: on home meds Current Meds Current Medication Order Review: Reviewed
--- NOTE | 2024-11-06 16:12 | PHA.REVIEW2 ---
Pharmacy Admission Review Admission Clinical Review Admission Pharmacy Review: Acute hypoxic respiratory failure (Acute) Aspiration pneumonitis after procedure (Acute) Acute cholecystitis (Acute) SHIRLEY Inhibitors Adverse Reaction (Intermediate, Verified 11/03/24 14:49) angioedema indomethacin Adverse Reaction (Verified 11/03/24 14:49) N/V/D Resuscitation Status Full Code Height 5 ft 6.5 in Weight 100 kg Pharmacy Admission Review Renal Dosing Renal Dosing: BUN Cancelled 11/06/24 08:05 Creatinine Cancelled 11/06/24 08:05 Medications needing adjustments: Reviewed Anticoagulation Anticoagulation: Hgb 13.6 g/dL (13.5-17.5) 11/06/24 04:35 Hct 39.4 % (40.0-50.0) L 11/06/24 04:35 Plt Count 187 10^3/uL (130-400) 11/06/24 04:35 Creatinine Cancelled 11/06/24 08:05 DVT Prophylaxis: Intervened (recommended to add enoxaparin) Opiate Usage Evaluate Pain Scale/Pains Meds: N/A Relevant Labs Relevant Labs: Sodium Cancelled 11/06/24 08:05 Potassium Cancelled 11/06/24 08:05 Chloride Cancelled 11/06/24 08:05 Magnesium 1.8 mg/dL (1.8-2.4) 11/06/24 04:35 Electrolytes, C-Reactive P, ESR: Reviewed DM Control DM Control: Reviewed Cardiac Review Cardiac Review: Troponin I 5 ng/L (<or=76) 11/06/24 04:35 NT-Pro-B Natriuret Pep 268 pg/mL (<300) 11/06/24 04:35 BP, HR, EF%: Reviewed QTc Review QTc: Reviewed List meds needing interventions: [id number] IV to PO Switch IV Medications: Reviewed Home Meds Home Med List reviewed: Reviewed Current Meds Current Medication Order Review: Reviewed Pharmacy Antibiotic Review Pharmacy Antibiotic Activity: Reviewed, no change Comments: on empiric ceftriaxone/doxycycline for pneumonia-f/u sputum and MRSA swab culture
[2024-11-06] MEDS: Omnipaque 350 MG/ML 100 ML BTL 85 ML IJ (16:36)
--- NOTE | 2024-11-06 16:59 | PDOC.CMPRO ---
Date of service: 11/06/24 Time of Service: 16:59 Care Management Progress Note Progress Note Text Progress Note Text: Nick was sitting up in bed visiting with his family when CM met with him. He appeared to be in good spirits but continues to require supplemental oxygen. During the night he became hypoxic on 4 L/min of oxygen via n/c and was transitioned to high flow at 6-8 L/min. He remains on 8L/ min at this time. Surgically Nick is doing well and is only requiring Acetaminophen for pain. He had some low grade fevers, up to 38.1 C yesterday, despite receiving scheduled Tylenol every 6 hours. Today he is afebrile. Nick's WBC bumped from 11.70 yesterday to 15.69 today and repeat imaging reported Increased bilateral pulmonary opacities. The provider has ordered a CT of the chest to rule out a PE however the report is not available at this time. Discharge Potential Discharge Needs: Surgical F/U Appt Anticipated Barriers to Discharge: Medical Status Patient/Family Education Needs: Review discharge instructions, discuss Ask Me Three Transportation: Private vehicle Plan: Anticipate Nick will be discharged home with no new services when medically cleared. He will follow up with his surgeon, PCP and plan of care and transport with family. CM will follow and continue to assess for discharge concerns. Social Determinants of Health Screening Social Determinants of health last assessed in clinic: 11/06/24 Will the Patient Participate in the Screening?: Yes Do you worry about having a steady place to live?: no Problems where you live: no known problems In the past 12 months, have you had to go without electric, gas, oil or water in your home?: no 1. Within the past 12 months, we worried whether our food would run out before we got money to buy more.: Never true 2. Within the past 12 months, the food we bought just didn't last and we didn't have money to get more.: Never true Has lack of transportation kept you from medical appointments or from doing things needed for daily living?: no Has anyone in your life made you feel unsafe or unsupported?: no How hard is it for you to pay for the very basics like food, housing, medical care, and heating? Would you say it is:: Not hard at all Do you want help finding or keeping work or a job?: I do not need or want help If for any reason you need help with day-to-day activities such as bathing, preparing meals, shopping, managing finances, etc., do you get the help you need?: I don?t need any help How often do you feel lonely or isolated from those around you?: Never Do you speak a language other than [place] at home?: No Does the patient want assistance with any of the above?: No
[2024-11-06] MEDS: cefTRIAXone 2 GM/50 ML BAG IVPB (18:08)
[2024-11-06] MEDS: Polyethylene Glycol 3350 17 GM PACKET PO ×2 (20:16→20:22)
[2024-11-06] MEDS: Enoxaparin 40 MG/0.4 ML SYR SC (20:21)
[2024-11-06] MEDS: AZITHROMYCIN 500 MG in Normal Saline 500 ML 166.6 MG IVPB (20:52)
[2024-11-07] VITALS (37 sets, daily range): BP systolic 94–133; BP diastolic 53–86; PULSE 81–107; RESP 2–43; TEMP 36–39.2; O2SAT 89–99
[2024-11-07] MEDS: Acetaminophen 500 MG TAB 1000 MG PO ×4 (03:26→22:28)
[2024-11-07 07:06] LABS: Abs Immature Grans 0.11 10^3/uL (0.0-0.06); Absolute Basophil Count 0.04 10^3/uL (0.0-0.2); Absolute Lymphocyte Count 1.22 10^3/uL (1.2-3.4); Absolute Neutrophil Count 11.32 10^3/uL (1.2-6.7); Basophils % 0.3 %; Eosinophils % 1.5 %; HCT 37.2 % (40.0-50.0); HGB 13.2 g/dL (13.5-17.5); Immature Grans % 0.8 %; Lymphocytes % 9.1 %; MCH 30.5 pg (27.0-33.0); MCHC 35.5 % (32.0-36.0); MCV 86 fL (80-95); MPV 10.7 fL (8.0-11.0); Monocytes % 3.7 %; Neutrophils % 84.6 %; Platelet Count 221 10^3/uL (130-400); RBC 4.33 10^6/uL (4.36-5.78); RDW 13.6 % (11.8-14.1); RDW-SD 42.7 fL; WBC 13.38 10^3/uL (4.4-10.8)
[2024-11-07 07:13] LABS: ESR 71 mm/hr (0-20)
[2024-11-07 07:33] LABS: ALT 32 U/L (16-63); AST 20 U/L (15-37); Albumin 2.2 g/dL (3.4-5.0); Alkaline Phosphatase 138 U/L (46-116); Anion Gap 7.5 mmol/L (3-11); BUN 19 mg/dL (7-18); CO2 27.5 mmol/L (21.0-32.0); CREATININE 1.2 mg/dL (0.70-1.30); Chloride 103 mmol/L (98-107); Estimated GFR 67.95 (mL/min/1.73m2); Glucose 124 mg/dL (74-106); NT-proBNP 863 pg/mL (<300); Potassium 3.5 mmol/L (3.5-5.1); Sodium 138 mmol/L (136-145); Total Protein 6.3 g/dL (6.4-8.2)
[2024-11-07 07:46] LABS: C-Reactive Protein > 25.00 mg/dL (<or=0.5)
[2024-11-07 07:50] LABS: Procalcitonin 14.83 ng/mL
[2024-11-07] MEDS: Allopurinol 300 MG TAB 450 MG PO (08:52)
[2024-11-07] MEDS: Normal Saline Flush 10 ML SYR IVP ×3 (08:55→20:47)
[2024-11-07] MEDS: Omeprazole 10 MG CAPCR PO (08:55)
[2024-11-07] MEDS: Metoprolol CR 25 MG TABCR PO (08:55)
[2024-11-07] MEDS: Polyethylene Glycol 3350 17 GM PACKET PO (08:57)
[2024-11-07] MEDS: metroNIDAZOLE 500 MG/100 ML BAG 100 MG IVPB ×3 (08:57→20:15)
[2024-11-07] MEDS: amLODIPine 10 MG TAB PO (09:01)
--- NOTE | 2024-11-07 09:20 | W.PM.PROGNOT ---
Date of Service Date of service: 11/25/24 Time of Service: 09:20 Assessment and Plan Assessment and plan (1) Aspiration pneumonitis after procedure: Status: Acute Assessment and plan: 64-year-old man with aspiration pneumonitis and possibly concurrent/secondary pneumonia after an aspiration event during an emergency laparoscopic cholecystectomy. Surgically there are no concerns. Medically, the hospitalist team is managing and directing his pulmonary care. I defer to their judgment in regards to antibiotic type, duration, etc. Overall plan: Continue to wean off oxygen Pulmonary toilet/chest PT/incentive spirometry/respiratory therapy Defer to medical team in regards to antibiotics If we cannot get him off of oxygen in the next 24 hours, we will transfer him to the medical service for further, ongoing care hopefully we can get his respiratory status back to baseline and discharge him in the next day or so. Subjective Subjective Interval history since last seen: Patient endorses feeling drastically improved today. He attributes this to starting the antibiotics yesterday. He is still requiring 6-8 L of oxygen but says this is energy is improved and he has really no discomfort or complaints whatsoever at this point. Exam Narrative Exam Narrative: Gen: Non-toxic, comfortable and interactive Neuro: Alert and oriented x3 Psych: Good mood and affect. Good insight and understanding into condition. Chest: Non-labored breathing, no wheezing, no visible shortness of breath. Requiring oxygen. Heart: Regular Abdomen: Soft, nondistended and nontender. Rotund/obese(baseline). Well?healed surgical sites. Objective Last Vital Signs Temp 100.4 F H 11/07/24 04:22 Pulse 86 11/07/24 03:01 Resp 22 11/07/24 03:01 BP 133/79 11/07/24 03:01 Pulse Ox 92 11/07/24 03:01 Laboratory Results - last 24 hr 11/06/24 11/07/24 11/07/24 04:35 06:30 08:05 WBC 13.38 H RBC 4.33 L Hgb 13.2 L Hct 37.2 L MCV 86 MCH 30.5 MCHC 35.5 RDW 13.6 Plt Count 221 MPV 10.7 Immature Gran % 0.8 Neutrophils % 84.6 Lymphocytes % 9.1 Monocytes % 3.7 Eosinophils % 1.5 Basophils % 0.3 Nucleated RBC % 0.0 Absolute Neutrophils 11.32 H Absolute Lymphocytes 1.22 Absolute Monocytes 0.50 Absolute Eosinophils 0.20 Absolute Basophils 0.04 ESR 71 H Sodium 138 Cancelled Potassium 3.5 Cancelled Chloride 103 Cancelled Carbon Dioxide 27.5 Cancelled Anion Gap 7.5 Cancelled BUN 19 H Cancelled Creatinine 1.2 Cancelled Est GFR (CKD-EPI 2020) 67.95 Cancelled Glucose 124 H Cancelled Calcium 9.0 Cancelled Total Bilirubin 1.0 AST 20 ALT 32 Alkaline Phosphatase 138 H C-Reactive Protein > 25.00 H NT-Pro-B Natriuret Pep 863 H Total Protein 6.3 L Albumin 2.2 L Procalcitonin 14.83 Add-On Test Request DONE Time Spent with Patient Time Spent with Patient: <25 minutes Time was spent: preparing to see the patient(eg.review tests), obtaining and/or reviewing separately otained hiistory, ordering medications,tests, procedures, referring, communicating with other health plant care worker, indepentently interpreting results, counseling the patient and care coordination
--- NOTE | 2024-11-07 11:19 | PGE_ITS ---
Date of Service Date of service: 11/07/24 Time of Service: 11:19 Assessment and Plan Assessment and plan (1) Acute hypoxic respiratory failure: Status: Acute Assessment and plan: Initially aspiration event at intubation. Appears to have been slowly improving with supportive care until this morning. EKG and initial troponins reassuring that no ACS. repeat one more trop in 3 hours. CXR does not suggest a consolidating pneumonia, no fevers, though WBC increased. Could consider treating with antibiotics at this point. CXR does suggest some fluid overload. He is fluid up with surgery. Get BNaP, try IV furosemide x 1 Not tachycardic and EKG does not suggest R heart strain, but must consider PE in post-op setting, consider CTA if not improving with other interventions Will review recommendation with Dr. Taylor to finalize plan 90 minutes spent from initial bedside evaluation to chart review and care coordination At this point with a benign lung exam/no fever I don't see compelling evidence for abx. Pt does have an elevated WBC, but this is almost certainly 2/2 recent surgery. Will monitor fever curve and WBC. There is also a component of antibiotic stewardship which needs to be kept in mind. 11/07/24 Pt states that he feels much better after the initiation of abx. Per UTD, pt should be on Rocephin and Flagyl. COMPARISON: CR LEFT RIBS TO INCLUDE CXR from 05/17/2014 CR XR CHEST 2V PA LATERAL from 11/05/2024 FINDINGS: Single AP portable view. Heart size is unchanged. Mediastinum not widened. There is no radiographic improvement in the extensive bilateral lung infiltrates, both interstitial and confluent. Indeed, there is slight further increase. No obvious pleural effusions. Incidentally noted is a sclerotic bone lesion in the proximal diaphysis of the left humerus which was evident on the 2014 images. This is probably an enchondroma IMPRESSION: Worsening-increased bilateral pulmonary infiltrates. Main consideration is for infectious etiology given the normal heart size. However, cannot also exclude an element of pulmonary edema. There are no pleural effusions evident. Exam(s) a CT:CT chest PE CTA Exam(s) CT CHEST PE CTA EXAM: CT CHEST PE CTA CLINICAL HISTORY: sob. TECHNIQUE: Imaging Protocol: Axial CT angiography was performed with multi- slice acquisition and multi-planar and/or 3D reconstructions. Lung Computer Aided Detection (CAD) was utilized. CONTRAST MATERIAL: Intravenous: Omnipaque 350 contrast volume:85 mL COMPARISON: CR,XR XR PORTABLE CHEST AP from 11/06/2024 FINDINGS: There is artifact secondary to the patient's positioning of the upper extremities. The examination is limited due to patient motion artifact. Tracheobronchial tree: Patent where visualized. No bronchiectasis. Pulmonary parenchyma: There is a multifocal ground-glass infiltrate involving all 5 lobes consistent with pneumonia. No architectural distortion. Pulmonary Arteries: Evaluation of the pulmonary arteries is suboptimal due to patient motion and opacification. Within the limits of the examination, no pulmonary embolism is present. Mediastinum and Connie: Reactive lymph nodes are seen in the mediastinum. The esophagus is grossly unremarkable. There is a small hiatal hernia. Visualized thyroid gland: There is a 1.7 cm hypodense nodule in the inferior aspect of the right lobe of the thyroid gland. Nonemergent thyroid ultrasound is recommended for further evaluation. Pleura: No effusion or pneumothorax. Heart: The heart is mildly enlarged. No coronary artery calcifications are seen. No pericardial effusion. Aorta: Thoracic aorta non-dilated. No evidence of dissection. Upper abdomen: Unremarkable. Soft tissues: There is bilateral gynecomastia. Bones: Within normal limits for the patient's age.There is a stable old L1 compression deformity. IMPRESSION: 1. Examination is limited by patient motion artifact and patient positioning. 2. Within the limits of the examination, no pulmonary embolism is present. 3. Diffuse multifocal ground-glass infiltrates consistent with pneumonia. 4. Right thyroid nodule. Nonemergent thyroid ultrasound is recommended for further evaluation. (2) Thyroid nodule: Status: Acute Assessment and plan: Pt will need outpatient thyroid usn for further delineation if this has not been done in the past Subjective Subjective Interval history since last seen: Pt seen and examined. Pt states that he feels much better with abx. Exam Narrative Exam Narrative: GEN: Alert and oriented x 4, pleasant and cooperative, gives linear history, mild respiratory distress at rest. HEENT: Head atraumatic. Conjunctiva clear, no icterus. no rhinorrhea. MMM, OP benign. Neck is supple with no masses or lymphadenopathy, trachea midline LUNGS: CTAB NO AMU. Speaking in complete sentences CV: Regular with some skipped beats at times, no murmurs, gallops, or rubs. ABD: active bowel sounds, soft, minimally tender and nondistended. Port scars c/d/i EXT: no cyanosis, clubbing, or edema MSK: No joint redness or swelling NEURO: CN 2-12 grossly intact. Normal movement of 4 extremities. Normal speech and coordination. No tremor SKIN: No rashes or open wounds. surgical wounds benign PSYCH: normal mood and affect Objective Last Vital Signs Temp 36.8 C 11/07/24 11:09 Pulse 89 11/07/24 11:09 Resp 16 11/07/24 11:09 BP 112/75 11/07/24 11:09 Pulse Ox 94 11/07/24 11:09 Laboratory Results - last 24 hr 11/06/24 11/07/24 11/07/24 04:35 06:30 08:05 WBC 13.38 H RBC 4.33 L Hgb 13.2 L Hct 37.2 L MCV 86 MCH 30.5 MCHC 35.5 RDW 13.6 Plt Count 221 MPV 10.7 Immature Gran % 0.8 Neutrophils % 84.6 Lymphocytes % 9.1 Monocytes % 3.7 Eosinophils % 1.5 Basophils % 0.3 Nucleated RBC % 0.0 Absolute Neutrophils 11.32 H Absolute Lymphocytes 1.22 Absolute Monocytes 0.50 Absolute Eosinophils 0.20 Absolute Basophils 0.04 ESR 71 H Sodium 138 Cancelled Potassium 3.5 Cancelled Chloride 103 Cancelled Carbon Dioxide 27.5 Cancelled Anion Gap 7.5 Cancelled BUN 19 H Cancelled Creatinine 1.2 Cancelled Est GFR (CKD-EPI 2020) 67.95 Cancelled Glucose 124 H Cancelled Calcium 9.0 Cancelled Total Bilirubin 1.0 AST 20 ALT 32 Alkaline Phosphatase 138 H C-Reactive Protein > 25.00 H NT-Pro-B Natriuret Pep 863 H Total Protein 6.3 L Albumin 2.2 L Procalcitonin 14.83 Add-On Test Request DONE Time Spent with Patient Time Spent with Patient: 25-34 minutes Time was spent: preparing to see the patient(eg.review tests), obtaining and/or reviewing separately otained hiistory, ordering medications,tests, procedures, referring, communicating with other health child care center administrator, indepentently interpreting results, counseling the patient and care coordination
[2024-11-07] MEDS: Albuterol 2.5 MG/3 ML INH SOLN VIAL UPD ×2 (15:31→20:21)
[2024-11-07] MEDS: Sodium Chloride 0.9% for Inhalation 3 ML VIAL UPD ×2 (15:32→20:22)
[2024-11-07 15:44] LABS: BE (Venous) 3 mmol/L (-2-3); HCO3 (Venous) 26 mmol/L (23-28); O2 Sat (Venous) 73 %; TCO2 (Venous) 23 mmol/L (24-29); pCO2 (Venous) 35 mmHg (41-51); pH (Venous) 7.48 (7.31-7.41); pO2 (Venous) 37 mmHg
[2024-11-07] MEDS: PIPERACILLIN/TAZO 4.5 GM in Normal Saline 100 ML IVPB ×2 (16:20→22:28)
--- NOTE | 2024-11-07 16:50 | DI.RAD_ITS ---
Exam(s) XR PORTABLE CHEST AP EXAM: XR PORTABLE CHEST AP CLINICAL HISTORY: hypoxia TECHNIQUE: 2D digital imaging was performed of the chest. One image was obtained. An AP view was ob tained. COMPARISON: CR,XR XR PORTABLE CHEST AP from 11/06/2024 FINDINGS: MEDIASTINUM: Normal. HEART: Normal. PULMONARY VASCULATURE: Normal. LUNGS: Persistent bilateral ground-glass opacities. Findings appears somewhat progressed particularl y in the left upper lobe. PLEURAL SPACE: No pleural effusion or pneumothorax. BONE:Within normal limits for the patient's age. OTHER FINDINGS:Normal. IMPRESSION: Slight progression of the diffuse pulmonary infiltrates. Differential considerations include pneumon ia, including atypical organisms, pulmonary edema or hemorrhage. DATA REPOSITORY: RADIATION DOSE DELIVERED:
[2024-11-07] MEDS: cefTRIAXone 2 GM/50 ML BAG IVPB (17:38)
[2024-11-07 19:31] LABS: COVID-19 PCR Negative (Negative); Influenza A PCR Negative (Negative); Influenza B PCR Negative (Negative); RSV PCR Negative (Negative)
[2024-11-07 19:32] LABS: Source Nasopharynx
[2024-11-07] MEDS: Enoxaparin 40 MG/0.4 ML SYR SC (20:15)
[2024-11-08] VITALS (67 sets, daily range): BP systolic 100–134; BP diastolic 57–80; PULSE 69–101; RESP 2–43; TEMP 31–38.1; O2SAT 87–98
[2024-11-08] MEDS: metroNIDAZOLE 500 MG/100 ML BAG 100 MG IVPB ×4 (02:20→19:25)
[2024-11-08] MEDS: Acetaminophen 500 MG TAB 1000 MG PO ×4 (03:47→22:31)
[2024-11-08] MEDS: PIPERACILLIN/TAZO 4.5 GM in Normal Saline 100 ML IVPB ×4 (03:48→22:05)
[2024-11-08] MEDS: Sodium Chloride 0.9% for Inhalation 3 ML VIAL UPD ×5 (03:48→20:40)
[2024-11-08 05:50] LABS: BE (Venous) 1 mmol/L (-2-3); HCO3 (Venous) 25 mmol/L (23-28); O2 Sat (Venous) 97 %; TCO2 (Venous) 22 mmol/L (24-29); pCO2 (Venous) 34 mmHg (41-51); pH (Venous) 7.48 (7.31-7.41); pO2 (Venous) 84 mmHg
[2024-11-08 05:53] LABS: Abs Immature Grans 0.15 10^3/uL (0.0-0.06); Absolute Basophil Count 0.05 10^3/uL (0.0-0.2); Absolute Eosinophil Count 0.32 10^3/uL (0.0-0.7); Absolute Monocyte Count 0.76 10^3/uL (0.1-0.8); Basophils % 0.4 %; Eosinophils % 2.7 %; HCT 37.2 % (40.0-50.0); HGB 12.8 g/dL (13.5-17.5); Immature Grans % 1.3 %; Lymphocytes % 9.2 %; MCH 29.7 pg (27.0-33.0); MCHC 34.4 % (32.0-36.0); MCV 86 fL (80-95); MPV 9.9 fL (8.0-11.0); Monocytes % 6.3 %; Neutrophils % 80.1 %; Platelet Count 211 10^3/uL (130-400); RBC 4.31 10^6/uL (4.36-5.78); RDW 13.4 % (11.8-14.1); RDW-SD 42.5 fL
[2024-11-08 05:55] LABS: Absolute Neutrophil Count 9.61 10^3/uL (1.2-6.7)
[2024-11-08 06:11] LABS: ALT 35 U/L (16-63); AST 26 U/L (15-37); Albumin 2.1 g/dL (3.4-5.0); Alkaline Phosphatase 148 U/L (46-116); Anion Gap 10.5 mmol/L (3-11); BUN 18 mg/dL (7-18); Bilirubin, Total 0.8 mg/dL (0.2-1.0); CO2 25.5 mmol/L (21.0-32.0); CREATININE 1.1 mg/dL (0.70-1.30); Calcium 8.5 mg/dL (8.5-10.1); Chloride 101 mmol/L (98-107); Estimated GFR 75.43 (mL/min/1.73m2); Glucose 132 mg/dL (74-106); Potassium 3.2 mmol/L (3.5-5.1); Sodium 137 mmol/L (136-145); Total Protein 6.4 g/dL (6.4-8.2)
[2024-11-08] MEDS: Albuterol 2.5 MG/3 ML INH SOLN VIAL UPD ×4 (07:50→20:43)
[2024-11-08] MEDS: Normal Saline Flush 10 ML SYR IVP ×3 (08:03→19:24)
[2024-11-08] MEDS: Omeprazole 10 MG CAPCR PO (08:04)
[2024-11-08] MEDS: Allopurinol 300 MG TAB 450 MG PO (08:04)
[2024-11-08] MEDS: Metoprolol CR 25 MG TABCR PO (08:05)
[2024-11-08] MEDS: amLODIPine 10 MG TAB PO (08:05)
[2024-11-08] MEDS: Lactated Ringers 1,000 ML 125 ML IV ×2 (09:28→22:26)
[2024-11-08] MEDS: Potassium Chloride 20 MEQ TABCR PO ×2 (09:28→19:23)
--- NOTE | 2024-11-08 09:39 | PGE_ITS ---
Date of Service Date of service: 11/08/24 Time of Service: 09:39 Assessment and Plan Assessment and plan (1) Aspiration pneumonitis after procedure: Status: Acute Assessment and plan: 64 yo man with ongoing respiratory issues since an aspiration event during GB surgery a week ago. He remains HD stable but his O2 requirements did increase and his respiratory status seems to have weakened. I discussed his case at length and in detail with the hospitalist team. At this point, they are willing to take over his care which is 100% respiratory and medical. He has no restrictions from a surgical or abdominal standpoint. He doesn't need pain medication and has no dietary or activity or medication restrictions. Surgery transferring care to hospitalist team and signing off. Appreciate the co-management very much. Call us back if/when needed. Subjective Subjective Interval history since last seen: Had worsening respiratory requirements and difficulty breathing yesterday afternoon. Moved back into ICU. Today, things are a bit better than 12 hours ago and they are hopeful to wean him back to nasal cannula. No abdominal issues. His only verbal complaint is that he feels tired. Denies pain anywhere. Exam Narrative Exam Narrative: Gen: Non-toxic, comfortable and interactive. Neuro: Alert and oriented x3 Psych: Good mood and affect. Good insight and understanding into condition. Chest: Non-labored breathing, no wheezing, no visible shortness of breath - but requiring high-flow 02 Heart: Regular Abdomen: Soft, rotund(baseline), no distention and no tenderness. Objective Last Vital Signs Temp 99.0 F 11/08/24 08:34 Pulse 83 11/08/24 08:00 Resp 15 11/08/24 08:17 BP 100/58 L 11/08/24 07:06 Pulse Ox 96 11/08/24 08:17 Laboratory Results - last 24 hr 11/07/24 11/07/24 11/08/24 15:35 18:00 05:44 WBC 12.00 H RBC 4.31 L Hgb 12.8 L Hct 37.2 L MCV 86 MCH 29.7 MCHC 34.4 RDW 13.4 Plt Count 211 MPV 9.9 Immature Gran % 1.3 Neutrophils % 80.1 Lymphocytes % 9.2 Monocytes % 6.3 Eosinophils % 2.7 Basophils % 0.4 Nucleated RBC % 0.0 Absolute Neutrophils 9.61 H Absolute Lymphocytes 1.10 L Absolute Monocytes 0.76 Absolute Eosinophils 0.32 Absolute Basophils 0.05 VBG pH 7.48 H 7.48 H VBG pCO2 35 L 34 L VBG pO2 37 84 VBG HCO3 26 25 VBG Total CO2 23 L 22 L VBG O2 Saturation 73 97 VBG Base Excess 3 1 Sodium 137 Potassium 3.2 L Chloride 101 Carbon Dioxide 25.5 Anion Gap 10.5 BUN 18 Creatinine 1.1 Est GFR (CKD-EPI 2020) 75.43 Glucose 132 H Calcium 8.5 Total Bilirubin 0.8 AST 26 ALT 35 Alkaline Phosphatase 148 H Total Protein 6.4 Albumin 2.1 L COVID-19 Source Nasopharynx SARS-CoV-2 (PCR) Negative Influenza Type A (PCR) Negative Influenza Type B (PCR) Negative RSV (PCR) Negative Time Spent with Patient Time Spent with Patient: 25-34 minutes Time was spent: preparing to see the patient(eg.review tests), referring, communicating with other health resident care technician, counseling the patient and care coordination
--- NOTE | 2024-11-08 10:08 | PDOC.ANES ---
Anesthesia Note Report Anesthesia Note: Over the past few days of checking on Shad daily he has been in decent spirits, but appropriately frustrated about not being at home. Unfortunately he was readmitted to the ICU due to an increased oxygen requirement and new fever/elevated WBC. This morning he states he is tired, but has been coughing/deep breathing and his breathing feel ok - just hard to pull in a breath at times. He feels like he has to cough, but is having difficulty mobilizing what he feels needs to come up. He is back on the high flow nasal cannula. His RN states that he looks better than yesterday/last night and that his lungs sound better and his fever has improved. His family has been able to visit with his most days.
--- NOTE | 2024-11-08 11:19 | PGE_ITS ---
Date of Service Date of service: 11/08/24 Time of Service: 11:19 Assessment and Plan Assessment and plan (1) Acute hypoxic respiratory failure: Status: Acute Assessment and plan: Initially aspiration event at intubation. Appears to have been slowly improving with supportive care until this morning. EKG and initial troponins reassuring that no ACS. repeat one more trop in 3 hours. CXR does not suggest a consolidating pneumonia, no fevers, though WBC increased. Could consider treating with antibiotics at this point. CXR does suggest some fluid overload. He is fluid up with surgery. Get BNaP, try IV furosemide x 1 Not tachycardic and EKG does not suggest R heart strain, but must consider PE in post-op setting, consider CTA if not improving with other interventions Will review recommendation with Dr. Taylor to finalize plan 90 minutes spent from initial bedside evaluation to chart review and care coordination At this point with a benign lung exam/no fever I don't see compelling evidence for abx. Pt does have an elevated WBC, but this is almost certainly 2/2 recent surgery. Will monitor fever curve and WBC. There is also a component of antibiotic stewardship which needs to be kept in mind. 11/07/24 Pt states that he feels much better after the initiation of abx. Per UTD, pt should be on Rocephin and Flagyl. COMPARISON: CR LEFT RIBS TO INCLUDE CXR from 05/17/2014 CR XR CHEST 2V PA LATERAL from 11/05/2024 FINDINGS: Single AP portable view. Heart size is unchanged. Mediastinum not widened. There is no radiographic improvement in the extensive bilateral lung infiltrates, both interstitial and confluent. Indeed, there is slight further increase. No obvious pleural effusions. Incidentally noted is a sclerotic bone lesion in the proximal diaphysis of the left humerus which was evident on the 2014 images. This is probably an enchondroma IMPRESSION: Worsening-increased bilateral pulmonary infiltrates. Main consideration is for infectious etiology given the normal heart size. However, cannot also exclude an element of pulmonary edema. There are no pleural effusions evident. Exam(s) a CT:CT chest PE CTA Exam(s) CT CHEST PE CTA EXAM: CT CHEST PE CTA CLINICAL HISTORY: sob. TECHNIQUE: Imaging Protocol: Axial CT angiography was performed with multi- slice acquisition and multi-planar and/or 3D reconstructions. Lung Computer Aided Detection (CAD) was utilized. CONTRAST MATERIAL: Intravenous: Omnipaque 350 contrast volume:85 mL COMPARISON: CR,XR XR PORTABLE CHEST AP from 11/06/2024 FINDINGS: There is artifact secondary to the patient's positioning of the upper extremities. The examination is limited due to patient motion artifact. Tracheobronchial tree: Patent where visualized. No bronchiectasis. Pulmonary parenchyma: There is a multifocal ground-glass infiltrate involving all 5 lobes consistent with pneumonia. No architectural distortion. Pulmonary Arteries: Evaluation of the pulmonary arteries is suboptimal due to patient motion and opacification. Within the limits of the examination, no pulmonary embolism is present. Mediastinum and Connie: Reactive lymph nodes are seen in the mediastinum. The esophagus is grossly unremarkable. There is a small hiatal hernia. Visualized thyroid gland: There is a 1.7 cm hypodense nodule in the inferior aspect of the right lobe of the thyroid gland. Nonemergent thyroid ultrasound is recommended for further evaluation. Pleura: No effusion or pneumothorax. Heart: The heart is mildly enlarged. No coronary artery calcifications are seen. No pericardial effusion. Aorta: Thoracic aorta non-dilated. No evidence of dissection. Upper abdomen: Unremarkable. Soft tissues: There is bilateral gynecomastia. Bones: Within normal limits for the patient's age.There is a stable old L1 compression deformity. IMPRESSION: 1. Examination is limited by patient motion artifact and patient positioning. 2. Within the limits of the examination, no pulmonary embolism is present. 3. Diffuse multifocal ground-glass infiltrates consistent with pneumonia. 4. Right thyroid nodule. Nonemergent thyroid ultrasound is recommended for further evaluation. 11/08/24 Pt on zosyn/rocephin/flagyl. cbc/cmp/procal/esr/crp pending in am wean as tolerated (2) Thyroid nodule: Status: Acute Assessment and plan: Pt will need outpatient thyroid usn for further delineation if this has not been done in the past Subjective Subjective Interval history since last seen: Pt states that he does feel better. Is coughing but will little production. POC d/w pt/bedside nurse/GS Exam Narrative Exam Narrative: NCAT MMM HI-FLOW IN PLACE NO JVD OR THYROIDMEGALY RRR NO MRG CTAB NO AMU SPEAKING IN COMPLETE SENTENCES SNTNDBSA NO CCE BILAT Objective Last Vital Signs Temp 37.2 C 11/08/24 08:34 Pulse 83 05/18/25 08:00 Resp 15 11/08/24 08:17 BP 100/58 L 11/08/24 07:06 Pulse Ox 96 11/08/24 08:17 Laboratory Results - last 24 hr 11/07/24 11/07/24 11/08/24 15:35 18:00 05:44 WBC 12.00 H RBC 4.31 L Hgb 12.8 L Hct 37.2 L MCV 86 MCH 29.7 MCHC 34.4 RDW 13.4 Plt Count 211 MPV 9.9 Immature Gran % 1.3 Neutrophils % 80.1 Lymphocytes % 9.2 Monocytes % 6.3 Eosinophils % 2.7 Basophils % 0.4 Nucleated RBC % 0.0 Absolute Neutrophils 9.61 H Absolute Lymphocytes 1.10 L Absolute Monocytes 0.76 Absolute Eosinophils 0.32 Absolute Basophils 0.05 VBG pH 7.48 H 7.48 H VBG pCO2 35 L 34 L VBG pO2 37 84 VBG HCO3 26 25 VBG Total CO2 23 L 22 L VBG O2 Saturation 73 97 VBG Base Excess 3 1 Sodium 137 Potassium 3.2 L Chloride 101 Carbon Dioxide 25.5 Anion Gap 10.5 BUN 18 Creatinine 1.1 Est GFR (CKD-EPI 2020) 75.43 Glucose 132 H Calcium 8.5 Total Bilirubin 0.8 AST 26 ALT 35 Alkaline Phosphatase 148 H Total Protein 6.4 Albumin 2.1 L COVID-19 Source Nasopharynx SARS-CoV-2 (PCR) Negative Influenza Type A (PCR) Negative Influenza Type B (PCR) Negative RSV (PCR) Negative Time Spent with Patient Time Spent with Patient: 25-34 minutes Time was spent: preparing to see the patient(eg.review tests), obtaining and/or reviewing separately otained hiistory, ordering medications,tests, procedures, referring, communicating with other health child care team lead, indepentently interpreting results, counseling the patient and care coordination
[2024-11-08] MEDS: cefTRIAXone 2 GM/50 ML BAG IVPB (17:22)
[2024-11-08] MEDS: Enoxaparin 40 MG/0.4 ML SYR SC (19:23)
[2024-11-09] VITALS (56 sets, daily range): BP systolic 106–141; BP diastolic 59–91; PULSE 72–99; RESP 3–45; TEMP 31–39.1; O2SAT 90–97
[2024-11-09] MEDS: metroNIDAZOLE 500 MG/100 ML BAG 100 MG IVPB ×4 (01:35→19:45)
[2024-11-09] MEDS: Acetaminophen 500 MG TAB 1000 MG PO ×4 (04:12→23:57)
[2024-11-09] MEDS: PIPERACILLIN/TAZO 4.5 GM in Normal Saline 100 ML IVPB ×4 (04:13→22:05)
[2024-11-09] MEDS: Sodium Chloride 0.9% for Inhalation 3 ML VIAL UPD ×3 (04:15→13:03)
[2024-11-09 06:44] LABS: ESR 83 mm/hr (0-20)
[2024-11-09 06:46] LABS: Absolute Basophil Count 0.06 10^3/uL (0.0-0.2); Absolute Eosinophil Count 0.36 10^3/uL (0.0-0.7); Absolute Lymphocyte Count 1.14 10^3/uL (1.2-3.4); Absolute Monocyte Count 0.81 10^3/uL (0.1-0.8); Basophils % 0.5 %; HCT 35.3 % (40.0-50.0); HGB 12.4 g/dL (13.5-17.5); Immature Grans % 1.6 %; Lymphocytes % 9.4 %; MCH 30.1 pg (27.0-33.0); MCHC 35.1 % (32.0-36.0); MCV 86 fL (80-95); MPV 10.4 fL (8.0-11.0); Monocytes % 6.7 %; Neutrophils % 78.8 %; Platelet Count 233 10^3/uL (130-400); RBC 4.12 10^6/uL (4.36-5.78); RDW 13.5 % (11.8-14.1); RDW-SD 42.5 fL; WBC 12.16 10^3/uL (4.4-10.8)
[2024-11-09 06:51] LABS: Absolute Neutrophil Count 9.58 10^3/uL (1.2-6.7)
[2024-11-09 07:15] LABS: ALT 36 U/L (16-63); AST 27 U/L (15-37); Albumin 1.9 g/dL (3.4-5.0); Alkaline Phosphatase 150 U/L (46-116); Anion Gap 12.5 mmol/L (3-11); BUN 14 mg/dL (7-18); Bilirubin, Total 0.8 mg/dL (0.2-1.0); CO2 23.5 mmol/L (21.0-32.0); CREATININE 1.1 mg/dL (0.70-1.30); Calcium 8.7 mg/dL (8.5-10.1); Chloride 102 mmol/L (98-107); Estimated GFR 75.43 (mL/min/1.73m2); Glucose 127 mg/dL (74-106); Potassium 3.5 mmol/L (3.5-5.1); Sodium 138 mmol/L (136-145); Total Protein 6.1 g/dL (6.4-8.2)
[2024-11-09 07:17] LABS: Procalcitonin 4.42 ng/mL
[2024-11-09] MEDS: Lactated Ringers 1,000 ML 125 ML IV ×2 (07:40→16:31)
[2024-11-09] MEDS: Potassium Chloride 20 MEQ TABCR PO ×2 (08:07→19:46)
[2024-11-09] MEDS: Omeprazole 10 MG CAPCR PO (08:07)
[2024-11-09] MEDS: amLODIPine 10 MG TAB PO (08:09)
[2024-11-09] MEDS: Allopurinol 300 MG TAB 450 MG PO (08:09)
[2024-11-09] MEDS: Normal Saline Flush 10 ML SYR IVP ×5 (08:13→19:46)
[2024-11-09] MEDS: Albuterol 2.5 MG/3 ML INH SOLN VIAL UPD ×2 (08:21→12:54)
--- NOTE | 2024-11-09 09:08 | PDOC.CMPRO ---
Date of service: 11/09/24 Time of Service: 09:08 Care Management Progress Note Progress Note Text Progress Note Text: Nick was sleeping both times CM attempted to meet with him today. His nurse shared that his had left moments before and that he was very tired. Nick was transferred to the ICU over the weekend in response to a deterioration in his respiratory status. He is still requiring high flow nasal oxygen and remains tachypneic, although he is slightly improved from yesterday. If he remains stable overnight, per the provider, he will likely be able to transfer out of the unit tomorrow. CM will follow. Discharge Potential Discharge Needs: PCP F/U Appt Anticipated Barriers to Discharge: Medical Status (aspirated during intubation for surgery) Patient/Family Education Needs: Review discharge instructions, discuss Ask Me Three Transportation: Private vehicle Plan: Anticipate Nick will be discharged home with no new services when medically cleared. He will follow up with his surgeon, PCP and plan of care and transport with family. CM will continue to assess for discharge concerns. Social Determinants of Health Screening Social Determinants of health last assessed in clinic: 11/09/24 Will the Patient Participate in the Screening?: Yes Do you worry about having a steady place to live?: no Problems where you live: no known problems In the past 12 months, have you had to go without electric, gas, oil or water in your home?: no 1. Within the past 12 months, we worried whether our food would run out before we got money to buy more.: Never true 2. Within the past 12 months, the food we bought just didn't last and we didn't have money to get more.: Never true Has lack of transportation kept you from medical appointments or from doing things needed for daily living?: no Has anyone in your life made you feel unsafe or unsupported?: no How hard is it for you to pay for the very basics like food, housing, medical care, and heating? Would you say it is:: Not hard at all Do you want help finding or keeping work or a job?: I do not need or want help If for any reason you need help with day-to-day activities such as bathing, preparing meals, shopping, managing finances, etc., do you get the help you need?: I don?t need any help How often do you feel lonely or isolated from those around you?: Never Do you speak a language other than Swedish at home?: No Does the patient want assistance with any of the above?: No
--- NOTE | 2024-11-09 12:55 | PGE_ITS ---
Date of Service Date of service: 11/09/24 Time of Service: 12:55 Assessment and Plan Assessment and plan (1) Acute hypoxic respiratory failure: Status: Acute Assessment and plan: Initially aspiration event at intubation. Appears to have been slowly improving with supportive care until this morning. EKG and initial troponins reassuring that no ACS. repeat one more trop in 3 hours. CXR does not suggest a consolidating pneumonia, no fevers, though WBC increased. Could consider treating with antibiotics at this point. CXR does suggest some fluid overload. He is fluid up with surgery. Get BNaP, try IV furosemide x 1 Not tachycardic and EKG does not suggest R heart strain, but must consider PE in post-op setting, consider CTA if not improving with other interventions Will review recommendation with Dr. Taylor to finalize plan 90 minutes spent from initial bedside evaluation to chart review and care coordination At this point with a benign lung exam/no fever I don't see compelling evidence for abx. Pt does have an elevated WBC, but this is almost certainly 2/2 recent surgery. Will monitor fever curve and WBC. There is also a component of antibiotic stewardship which needs to be kept in mind. 11/07/24 Pt states that he feels much better after the initiation of abx. Per UTD, pt should be on Rocephin and Flagyl. COMPARISON: CR LEFT RIBS TO INCLUDE CXR from 05/17/2014 CR XR CHEST 2V PA LATERAL from 11/05/2024 FINDINGS: Single AP portable view. Heart size is unchanged. Mediastinum not widened. There is no radiographic improvement in the extensive bilateral lung infiltrates, both interstitial and confluent. Indeed, there is slight further increase. No obvious pleural effusions. Incidentally noted is a sclerotic bone lesion in the proximal diaphysis of the left humerus which was evident on the 2014 images. This is probably an enchondroma IMPRESSION: Worsening-increased bilateral pulmonary infiltrates. Main consideration is for infectious etiology given the normal heart size. However, cannot also exclude an element of pulmonary edema. There are no pleural effusions evident. Exam(s) a CT:CT chest PE CTA Exam(s) CT CHEST PE CTA EXAM: CT CHEST PE CTA CLINICAL HISTORY: sob. TECHNIQUE: Imaging Protocol: Axial CT angiography was performed with multi- slice acquisition and multi-planar and/or 3D reconstructions. Lung Computer Aided Detection (CAD) was utilized. CONTRAST MATERIAL: Intravenous: Omnipaque 350 contrast volume:85 mL COMPARISON: CR,XR XR PORTABLE CHEST AP from 11/06/2024 FINDINGS: There is artifact secondary to the patient's positioning of the upper extremities. The examination is limited due to patient motion artifact. Tracheobronchial tree: Patent where visualized. No bronchiectasis. Pulmonary parenchyma: There is a multifocal ground-glass infiltrate involving all 5 lobes consistent with pneumonia. No architectural distortion. Pulmonary Arteries: Evaluation of the pulmonary arteries is suboptimal due to patient motion and opacification. Within the limits of the examination, no pulmonary embolism is present. Mediastinum and Connie: Reactive lymph nodes are seen in the mediastinum. The esophagus is grossly unremarkable. There is a small hiatal hernia. Visualized thyroid gland: There is a 1.7 cm hypodense nodule in the inferior aspect of the right lobe of the thyroid gland. Nonemergent thyroid ultrasound is recommended for further evaluation. Pleura: No effusion or pneumothorax. Heart: The heart is mildly enlarged. No coronary artery calcifications are seen. No pericardial effusion. Aorta: Thoracic aorta non-dilated. No evidence of dissection. Upper abdomen: Unremarkable. Soft tissues: There is bilateral gynecomastia. Bones: Within normal limits for the patient's age.There is a stable old L1 compression deformity. IMPRESSION: 1. Examination is limited by patient motion artifact and patient positioning. 2. Within the limits of the examination, no pulmonary embolism is present. 3. Diffuse multifocal ground-glass infiltrates consistent with pneumonia. 4. Right thyroid nodule. Nonemergent thyroid ultrasound is recommended for further evaluation. 11/08/24 Pt on zosyn/rocephin/flagyl. cbc/cmp/procal/esr/crp pending in am wean as tolerated 11/09/24 Pt's vitals/wbc/procal/ are reassuring. Will c/w abx and RT (2) Thyroid nodule: Status: Acute Assessment and plan: Pt will need outpatient thyroid usn for further delineation if this has not been done in the past. 11/09/24 D/w radiology who recommend outpatient evaluation. Non-urgent so will defer to outpatient setting. Sputum culture with mixed GP maximilian Subjective Subjective Interval history since last seen: Pt seen and examined. No new complaints and states he feels a bit better. Pt does have some anxiety issues Exam Narrative Exam Narrative: NCAT MMM HI-FLOW IN PLACE NO JVD OR THYROIDMEGALY RRR NO MRG CTAB NO AMU SPEAKING IN COMPLETE SENTENCES SNTNDBSA NO CCE BILAT hi-flow in place Objective Last Vital Signs Temp 38.3 C H 11/09/24 11:55 Pulse 86 11/09/24 12:14 Resp 24 11/09/24 12:14 BP 112/71 11/09/24 12:14 Pulse Ox 95 11/09/24 12:14 Laboratory Results - last 24 hr 11/09/24 05:41 WBC 12.16 H RBC 4.12 L Hgb 12.4 L Hct 35.3 L MCV 86 MCH 30.1 MCHC 35.1 RDW 13.5 Plt Count 233 MPV 10.4 Immature Gran % 1.6 Neutrophils % 78.8 Lymphocytes % 9.4 Monocytes % 6.7 Eosinophils % 3.0 Basophils % 0.5 Nucleated RBC % 0.0 Absolute Neutrophils 9.58 H Absolute Lymphocytes 1.14 L Absolute Monocytes 0.81 H Absolute Eosinophils 0.36 Absolute Basophils 0.06 ESR 83 H Sodium 138 Potassium 3.5 Chloride 102 Carbon Dioxide 23.5 Anion Gap 12.5 H BUN 14 Creatinine 1.1 Est GFR (CKD-EPI 2020) 75.43 Glucose 127 H Calcium 8.7 Total Bilirubin 0.8 AST 27 ALT 36 Alkaline Phosphatase 150 H C-Reactive Protein 23.70 H Total Protein 6.1 L Albumin 1.9 L Procalcitonin 4.42 Time Spent with Patient Time Spent with Patient: 35-49 minutes Time was spent: preparing to see the patient(eg.review tests), obtaining and/or reviewing separately otained hiistory, ordering medications,tests, procedures, referring, communicating with other health post acute care nurse practitioner, indepentently interpreting results, counseling the patient and care coordination
[2024-11-09] MEDS: cefTRIAXone 2 GM/50 ML BAG IVPB (17:50)
[2024-11-09] MEDS: MORPHine 2 MG/ML SYR 1 MG IVP ×2 (17:51→21:56)
[2024-11-09] MEDS: Enoxaparin 40 MG/0.4 ML SYR SC (19:45)
[2024-11-09] MEDS: Ibuprofen 600 MG TAB PO (22:10)
[2024-11-10] VITALS (60 sets, daily range): BP systolic 104–154; BP diastolic 66–95; PULSE 68–95; RESP 2–39; TEMP 31–37.6; O2SAT 91–96
[2024-11-10] MEDS: Lactated Ringers 1,000 ML 125 ML IV ×3 (00:08→16:24)
[2024-11-10] MEDS: metroNIDAZOLE 500 MG/100 ML BAG 100 MG IVPB ×4 (01:49→20:27)
[2024-11-10] MEDS: PIPERACILLIN/TAZO 4.5 GM in Normal Saline 100 ML IVPB ×4 (03:53→22:00)
[2024-11-10] MEDS: Normal Saline Flush 10 ML SYR IVP ×10 (03:54→20:27)
[2024-11-10] MEDS: Acetaminophen 500 MG TAB 1000 MG PO ×4 (05:57→23:41)
[2024-11-10 06:59] LABS: Abs Immature Grans 0.25 10^3/uL (0.0-0.06); Absolute Basophil Count 0.05 10^3/uL (0.0-0.2); Absolute Eosinophil Count 0.48 10^3/uL (0.0-0.7); Absolute Lymphocyte Count 1.62 10^3/uL (1.2-3.4); Absolute Monocyte Count 0.67 10^3/uL (0.1-0.8); Absolute Neutrophil Count 6.82 10^3/uL (1.2-6.7); Basophils % 0.5 %; Eosinophils % 4.9 %; HCT 36.6 % (40.0-50.0); HGB 12.6 g/dL (13.5-17.5); Immature Grans % 2.5 %; Lymphocytes % 16.4 %; MCH 29.4 pg (27.0-33.0); MCHC 34.4 % (32.0-36.0); MCV 85 fL (80-95); MPV 10.2 fL (8.0-11.0); Monocytes % 6.8 %; Neutrophils % 68.9 %; Platelet Count 271 10^3/uL (130-400); RBC 4.29 10^6/uL (4.36-5.78); RDW 13.6 % (11.8-14.1); RDW-SD 42.7 fL; WBC 9.89 10^3/uL (4.4-10.8)
[2024-11-10 07:24] LABS: ALT 38 U/L (16-63); AST 25 U/L (15-37); Albumin 1.9 g/dL (3.4-5.0); Alkaline Phosphatase 154 U/L (46-116); Anion Gap 10.5 mmol/L (3-11); BUN 13 mg/dL (7-18); Bilirubin, Total 0.7 mg/dL (0.2-1.0); CO2 25.5 mmol/L (21.0-32.0); CREATININE 0.9 mg/dL (0.70-1.30); Calcium 8.5 mg/dL (8.5-10.1); Chloride 103 mmol/L (98-107); Estimated GFR 95.97 (mL/min/1.73m2); Glucose 113 mg/dL (74-106); Potassium 3.4 mmol/L (3.5-5.1); Sodium 139 mmol/L (136-145); Total Protein 5.9 g/dL (6.4-8.2)
[2024-11-10] MEDS: Allopurinol 300 MG TAB 450 MG PO (07:39)
[2024-11-10] MEDS: amLODIPine 10 MG TAB PO (07:41)
[2024-11-10] MEDS: Potassium Chloride 20 MEQ TABCR PO ×2 (07:41→20:27)
[2024-11-10] MEDS: Metoprolol CR 25 MG TABCR PO (07:41)
[2024-11-10] MEDS: Omeprazole 10 MG CAPCR PO (07:41)
--- NOTE | 2024-11-10 08:49 | CMPROGNOTE_ITS ---
Date of service: 11/10/24 Time of Service: 08:50 Care Management Progress Note Progress Note Text Progress Note Text: Nick was sitting up in a chair when CM met with him. He was wearing high flow nasal oxygen but stated that he is feeling 100% better. He informed CM that his pneumonia is finally breaking up and he is breathing much easier. He hopes to be moved out of the ICU by tomorrow and maybe discharge by the end of the week. Nick has been told that he may need to continue to use oxygen for a bit but that it won't be for very long. His is oxygen dependent so he is familiar with the process. Nick expressed his appreciation for the wonderful care he has been receiving this admission from all of the medical and nursing staff. Discharge Potential Discharge Needs: PCP F/U Appt and Surgical F/U Appt Anticipated Barriers to Discharge: Medical Status Patient/Family Education Needs: Review discharge instructions, discuss Ask Me Three Transportation: Private vehicle Plan: Anticipate Nick will be discharged home when medically cleared. it is possible that he may need home oxygen for a time, however his oxygen needs are finally beginning to decrease. He will follow up with his surgeon, PCP and plan of care and transport with family. CM will continue to assess for discharge concerns. Social Determinants of Health Screening Social Determinants of health last assessed in clinic: 11/10/24 Will the Patient Participate in the Screening?: Yes Do you worry about having a steady place to live?: no Problems where you live: no known problems In the past 12 months, have you had to go without electric, gas, oil or water in your home?: no 1. Within the past 12 months, we worried whether our food would run out before we got money to buy more.: Never true 2. Within the past 12 months, the food we bought just didn't last and we didn't have money to get more.: Never true Has lack of transportation kept you from medical appointments or from doing things needed for daily living?: no Has anyone in your life made you feel unsafe or unsupported?: no How hard is it for you to pay for the very basics like food, housing, medical care, and heating? Would you say it is:: Not hard at all Do you want help finding or keeping work or a job?: I do not need or want help If for any reason you need help with day-to-day activities such as bathing, preparing meals, shopping, managing finances, etc., do you get the help you need?: I don?t need any help How often do you feel lonely or isolated from those around you?: Never Do you speak a language other than Ukrainian at home?: No Does the patient want assistance with any of the above?: No
[2024-11-10] MEDS: Sodium Chloride 0.9% for Inhalation 3 ML VIAL UPD ×2 (09:06→13:41)
[2024-11-10] MEDS: Albuterol 2.5 MG/3 ML INH SOLN VIAL UPD ×3 (09:06→20:00)
[2024-11-10] MEDS: Ibuprofen 600 MG TAB PO ×3 (09:50→23:43)
[2024-11-10] MEDS: MORPHine 2 MG/ML SYR 1 MG IVP ×2 (10:50→16:33)
--- NOTE | 2024-11-10 14:11 | PGE_ITS ---
Date of Service Date of service: 11/10/24 Time of Service: 14:11 Subjective Subjective Interval history since last seen: Pt seen and examined Objective Last Vital Signs Temp 37.2 C 11/10/24 12:36 Pulse 80 11/10/24 13:41 Resp 22 11/10/24 13:41 BP 121/70 11/10/24 13:01 Pulse Ox 92 11/10/24 13:41 Laboratory Results - last 24 hr 11/10/24 05:24 WBC 9.89 RBC 4.29 L Hgb 12.6 L Hct 36.6 L MCV 85 MCH 29.4 MCHC 34.4 RDW 13.6 Plt Count 271 MPV 10.2 Immature Gran % 2.5 Neutrophils % 68.9 Lymphocytes % 16.4 Monocytes % 6.8 Eosinophils % 4.9 Basophils % 0.5 Nucleated RBC % 0.0 Absolute Neutrophils 6.82 H Absolute Lymphocytes 1.62 Absolute Monocytes 0.67 Absolute Eosinophils 0.48 Absolute Basophils 0.05 Sodium 139 Potassium 3.4 L Chloride 103 Carbon Dioxide 25.5 Anion Gap 10.5 BUN 13 Creatinine 0.9 Est GFR (CKD-EPI 2020) 95.97 Glucose 113 H Calcium 8.5 Total Bilirubin 0.7 AST 25 ALT 38 Alkaline Phosphatase 154 H Total Protein 5.9 L Albumin 1.9 L Time Spent with Patient Time Spent with Patient: 25-34 minutes Time was spent: preparing to see the patient(eg.review tests), obtaining and/or reviewing separately otained hiistory, ordering medications,tests, procedures, referring, communicating with other health respiratory care assistant, indepentently interpreting results, counseling the patient and care coordination
--- NOTE | 2024-11-10 14:27 | PGE_ITS ---
Date of Service Date of service: 11/10/24 Time of Service: 14:27 Assessment and Plan Assessment and plan (1) Acute hypoxic respiratory failure: Status: Acute Assessment and plan: Initially aspiration event at intubation. Appears to have been slowly improving with supportive care until this morning. EKG and initial troponins reassuring that no ACS. repeat one more trop in 3 hours. CXR does not suggest a consolidating pneumonia, no fevers, though WBC increased. Could consider treating with antibiotics at this point. CXR does suggest some fluid overload. He is fluid up with surgery. Get BNaP, try IV furosemide x 1 Not tachycardic and EKG does not suggest R heart strain, but must consider PE in post-op setting, consider CTA if not improving with other interventions Will review recommendation with Dr. Taylor to finalize plan 90 minutes spent from initial bedside evaluation to chart review and care coordination At this point with a benign lung exam/no fever I don't see compelling evidence for abx. Pt does have an elevated WBC, but this is almost certainly 2/2 recent surgery. Will monitor fever curve and WBC. There is also a component of antibiotic stewardship which needs to be kept in mind. 11/07/24 Pt states that he feels much better after the initiation of abx. Per UTD, pt should be on Rocephin and Flagyl. COMPARISON: CR LEFT RIBS TO INCLUDE CXR from 05/17/2014 CR XR CHEST 2V PA LATERAL from 11/05/2024 FINDINGS: Single AP portable view. Heart size is unchanged. Mediastinum not widened. There is no radiographic improvement in the extensive bilateral lung infiltrates, both interstitial and confluent. Indeed, there is slight further increase. No obvious pleural effusions. Incidentally noted is a sclerotic bone lesion in the proximal diaphysis of the left humerus which was evident on the 2014 images. This is probably an enchondroma IMPRESSION: Worsening-increased bilateral pulmonary infiltrates. Main consideration is for infectious etiology given the normal heart size. However, cannot also exclude an element of pulmonary edema. There are no pleural effusions evident. Exam(s) a CT:CT chest PE CTA Exam(s) CT CHEST PE CTA EXAM: CT CHEST PE CTA CLINICAL HISTORY: sob. TECHNIQUE: Imaging Protocol: Axial CT angiography was performed with multi- slice acquisition and multi-planar and/or 3D reconstructions. Lung Computer Aided Detection (CAD) was utilized. CONTRAST MATERIAL: Intravenous: Omnipaque 350 contrast volume:85 mL COMPARISON: CR,XR XR PORTABLE CHEST AP from 11/06/2024 FINDINGS: There is artifact secondary to the patient's positioning of the upper extremities. The examination is limited due to patient motion artifact. Tracheobronchial tree: Patent where visualized. No bronchiectasis. Pulmonary parenchyma: There is a multifocal ground-glass infiltrate involving all 5 lobes consistent with pneumonia. No architectural distortion. Pulmonary Arteries: Evaluation of the pulmonary arteries is suboptimal due to patient motion and opacification. Within the limits of the examination, no pulmonary embolism is present. Mediastinum and Connie: Reactive lymph nodes are seen in the mediastinum. The esophagus is grossly unremarkable. There is a small hiatal hernia. Visualized thyroid gland: There is a 1.7 cm hypodense nodule in the inferior aspect of the right lobe of the thyroid gland. Nonemergent thyroid ultrasound is recommended for further evaluation. Pleura: No effusion or pneumothorax. Heart: The heart is mildly enlarged. No coronary artery calcifications are seen. No pericardial effusion. Aorta: Thoracic aorta non-dilated. No evidence of dissection. Upper abdomen: Unremarkable. Soft tissues: There is bilateral gynecomastia. Bones: Within normal limits for the patient's age.There is a stable old L1 compression deformity. IMPRESSION: 1. Examination is limited by patient motion artifact and patient positioning. 2. Within the limits of the examination, no pulmonary embolism is present. 3. Diffuse multifocal ground-glass infiltrates consistent with pneumonia. 4. Right thyroid nodule. Nonemergent thyroid ultrasound is recommended for further evaluation. 11/08/24 Pt on zosyn/rocephin/flagyl. cbc/cmp/procal/esr/crp pending in am wean as tolerated 11/09/24 Pt's vitals/wbc/procal/ are reassuring. Will c/w abx and RT 11/10/24 Vitals are benign except for intermittent fevers. WBC is wnl, CW zosyn/flagyl/rocephin (2) Thyroid nodule: Status: Acute Assessment and plan: Pt will need outpatient thyroid usn for further delineation if this has not been done in the past. 11/09/24 D/w radiology who recommend outpatient evaluation. Non-urgent so will defer to outpatient setting. (3) Acute cholecystitis: Status: Acute Assessment and plan: s/p cholecystecomy but apparently had an aspiration event perioperatively (4) S/P laparoscopic cholecystectomy: Subjective Subjective Interval history since last seen: Pt seen and examined in his room this am. Pt states right flank pain is intermittent and tolerable. POC d/w pt and bedside nurse during ICU huddle. Also, d/w RT during MDR. Recommending keeping in ICU for another day. Pt did have some fevers over last 48 hours but responding to tylenol Exam Narrative Exam Narrative: NCAT MMM HI-FLOW IN PLACE NO JVD OR THYROIDMEGALY RRR NO MRG CTAB NO AMU SPEAKING IN COMPLETE SENTENCES SNTNDBSA NO CCE BILAT hi-flow in place Objective Last Vital Signs Temp 37.2 C 11/10/24 12:36 Pulse 80 11/10/24 13:41 Resp 22 11/10/24 13:41 BP 121/70 11/10/24 13:01 Pulse Ox 92 11/10/24 13:41 Laboratory Results - last 24 hr 11/10/24 05:24 WBC 9.89 RBC 4.29 L Hgb 12.6 L Hct 36.6 L MCV 85 MCH 29.4 MCHC 34.4 RDW 13.6 Plt Count 271 MPV 10.2 Immature Gran % 2.5 Neutrophils % 68.9 Lymphocytes % 16.4 Monocytes % 6.8 Eosinophils % 4.9 Basophils % 0.5 Nucleated RBC % 0.0 Absolute Neutrophils 6.82 H Absolute Lymphocytes 1.62 Absolute Monocytes 0.67 Absolute Eosinophils 0.48 Absolute Basophils 0.05 Sodium 139 Potassium 3.4 L Chloride 103 Carbon Dioxide 25.5 Anion Gap 10.5 BUN 13 Creatinine 0.9 Est GFR (CKD-EPI 2020) 95.97 Glucose 113 H Calcium 8.5 Total Bilirubin 0.7 AST 25 ALT 38 Alkaline Phosphatase 154 H Total Protein 5.9 L Albumin 1.9 L Time Spent with Patient Time Spent with Patient: 25-34 minutes Time was spent: preparing to see the patient(eg.review tests), obtaining and/or reviewing separately otained hiistory, ordering medications,tests, procedures, referring, communicating with other health child care centre director, indepentently interpreting results, counseling the patient and care coordination
[2024-11-10] MEDS: cefTRIAXone 2 GM/50 ML BAG IVPB (17:46)
[2024-11-10] MEDS: Enoxaparin 40 MG/0.4 ML SYR SC (20:26)
[2024-11-10] MEDS: Bisacodyl 5 MG TABEC PO (20:54)
[2024-11-10] MEDS: Polyethylene Glycol 3350 17 GM PACKET PO (21:57)
[2024-11-10] MEDS: Simethicone 80 MG CHEW 160 MG PO (21:58)
[2024-11-11] VITALS (57 sets, daily range): BP systolic 106–148; BP diastolic 61–99; PULSE 67–113; RESP 13–43; TEMP 31–38.2; O2SAT 87–97
[2024-11-11] MEDS: metroNIDAZOLE 500 MG/100 ML BAG 100 MG IVPB ×4 (02:03→19:59)
[2024-11-11] MEDS: Normal Saline Flush 10 ML SYR IVP ×9 (02:05→20:00)
--- NOTE | 2024-11-11 03:29 | NUR.NOTE ---
pt sleeping well with High flow o2 on. n/c voiced when awake
[2024-11-11] MEDS: PIPERACILLIN/TAZO 4.5 GM in Normal Saline 100 ML IVPB ×4 (04:06→22:29)
[2024-11-11] MEDS: Acetaminophen 500 MG TAB 1000 MG PO ×2 (05:44→15:06)
[2024-11-11] MEDS: Ibuprofen 600 MG TAB PO ×2 (05:45→20:00)
[2024-11-11 06:13] LABS: Abs Immature Grans 0.21 10^3/uL (0.0-0.06); Absolute Basophil Count 0.06 10^3/uL (0.0-0.2); Absolute Eosinophil Count 0.58 10^3/uL (0.0-0.7); Absolute Monocyte Count 0.66 10^3/uL (0.1-0.8); Basophils % 0.5 %; Eosinophils % 5.1 %; HCT 36.2 % (40.0-50.0); HGB 12.6 g/dL (13.5-17.5); Immature Grans % 1.8 %; MCH 29.8 pg (27.0-33.0); MCHC 34.8 % (32.0-36.0); MCV 86 fL (80-95); MPV 9.6 fL (8.0-11.0); Monocytes % 5.8 %; Neutrophils % 72.8 %; Platelet Count 319 10^3/uL (130-400); RBC 4.23 10^6/uL (4.36-5.78); RDW 13.6 % (11.8-14.1); RDW-SD 42.7 fL; WBC 11.46 10^3/uL (4.4-10.8)
--- NOTE | 2024-11-11 06:13 | NUR.NOTE ---
0615-resp in and changed pt to regular n/c at 2 L.o2 sat 93% and tolerated well.
[2024-11-11 06:14] LABS: Absolute Neutrophil Count 8.34 10^3/uL (1.2-6.7)
[2024-11-11 06:31] LABS: ALT 39 U/L (16-63); AST 26 U/L (15-37); Alkaline Phosphatase 178 U/L (46-116); Anion Gap 6.5 mmol/L (3-11); BUN 12 mg/dL (7-18); Bilirubin, Total 0.5 mg/dL (0.2-1.0); CO2 27.5 mmol/L (21.0-32.0); CREATININE 0.9 mg/dL (0.70-1.30); Calcium 8.4 mg/dL (8.5-10.1); Chloride 103 mmol/L (98-107); Estimated GFR 95.97 (mL/min/1.73m2); Glucose 151 mg/dL (74-106); Potassium 3.6 mmol/L (3.5-5.1); Sodium 137 mmol/L (136-145); Total Protein 6.1 g/dL (6.4-8.2)
[2024-11-11] MEDS: Omeprazole 10 MG CAPCR PO (07:45)
[2024-11-11] MEDS: amLODIPine 10 MG TAB PO (07:46)
[2024-11-11] MEDS: Allopurinol 300 MG TAB 450 MG PO (07:46)
[2024-11-11] MEDS: Metoprolol CR 25 MG TABCR PO (07:46)
[2024-11-11] MEDS: Potassium Chloride 20 MEQ TABCR PO ×2 (07:46→20:00)
[2024-11-11] MEDS: Albuterol 2.5 MG/3 ML INH SOLN VIAL UPD ×2 (09:52→18:11)
[2024-11-11] MEDS: Sodium Chloride 0.9% for Inhalation 3 ML VIAL UPD ×2 (10:00→18:13)
[2024-11-11] MEDS: Bisacodyl 5 MG TABEC PO ×2 (11:17→16:49)
[2024-11-11] MEDS: Simethicone 80 MG CHEW 160 MG PO ×2 (11:18→20:00)
--- NOTE | 2024-11-11 11:36 | CMPROGNOTE_ITS ---
Date of service: 11/11/24 Time of Service: 11:36 Care Management Progress Note Progress Note Text Progress Note Text: Shad was sitting up in his chair, when CM arrived. Shad is still wearing a high flow nasal oxygen and was on 2L. He is agreeable to going home on O2, if this is necessary. Per report, he will be moved to the Med/surg floor today; He is excited about this and states he is hopeful to go home soon. CM will continue to follow. Discharge Potential Discharge Needs: PCP F/U Appt and Surgical F/U Appt Anticipated Barriers to Discharge: Medical Status Patient/Family Education Needs: Review discharge instructions, discuss Ask Me Three Transportation: Private vehicle Plan: Anticipate Nick will be discharged home when medically cleared. it is possible that he may need home oxygen for a time which he is agreeable too, however his oxygen needs are finally beginning to decrease. He will follow up with his surgeon, PCP and plan of care and transport with family. CM will continue to assess for discharge concerns. Social Determinants of Health Screening Social Determinants of health last assessed in clinic: 11/11/24 Will the Patient Participate in the Screening?: Yes Do you worry about having a steady place to live?: no Problems where you live: no known problems In the past 12 months, have you had to go without electric, gas, oil or water in your home?: no 1. Within the past 12 months, we worried whether our food would run out before we got money to buy more.: Never true 2. Within the past 12 months, the food we bought just didn't last and we didn't have money to get more.: Never true Has lack of transportation kept you from medical appointments or from doing things needed for daily living?: no Has anyone in your life made you feel unsafe or unsupported?: no How hard is it for you to pay for the very basics like food, housing, medical care, and heating? Would you say it is:: Not hard at all Do you want help finding or keeping work or a job?: I do not need or want help If for any reason you need help with day-to-day activities such as bathing, preparing meals, shopping, managing finances, etc., do you get the help you need?: I don?t need any help How often do you feel lonely or isolated from those around you?: Never Do you speak a language other than Bulgarian at home?: No Does the patient want assistance with any of the above?: No
[2024-11-11] MEDS: MORPHine 2 MG/ML SYR 1 MG IVP (12:04)
--- NOTE | 2024-11-11 12:13 | W.PM.PROGNOT ---
Date of Service Date of service: 11/11/24 Time of Service: 12:13 Assessment and Plan Assessment and plan (1) Aspiration pneumonitis after procedure: Status: Acute Assessment and plan: -patient aspirated perioperatively and was sent to the ICU after surgery -initially managed by surgery as patient was improving, but Medicine consult placed POD #2 as patient appeared to be getting worse with increased O2 requirements and tachypnea -post-operatively he was initially on 3L NC but needed to be transitioned to HFNC -patient was placed on vanc and zosyn which has since been continued, likely to be discontinued tomorrow 11/12 based on patients ongoing improvements -CRX did not show consolidation and patient was initially with fevers but became febrile, with last fever ~20:40 on 11/09 of 102.4 -HFNC has since been weaned, patient now on 2L NC, continue to wean as tolerated (2) Acute hypoxic respiratory failure: Status: Acute Assessment and plan: -secondary to aspiration event as noted above (3) Thyroid nodule: Status: Acute Assessment and plan: -outpatient follow-up (4) Acute cholecystitis: Status: Acute Assessment and plan: -POD#8 s/p cholecystecomy but apparently had an aspiration event perioperatively -patient with some constipation, will increase bowel regimen (5) S/P laparoscopic cholecystectomy: Assessment and plan: as noted above Subjective Subjective Interval history since last seen: Patient states that he is feeling much better and is looking forward to being able to ambulate more with Nursing staff today. Exam Narrative Exam Narrative: well appearing gentleman laying in bed in no acute distressm AOx4, heart RRR, lungs CTAB, abdomen firm but without tenderness, guarding or rebound Objective Last Vital Signs Temp 99.7 F H 11/11/24 11:47 Pulse 105 H 11/11/24 10:14 Resp 28 H 11/11/24 10:00 BP 126/78 11/11/24 09:50 Pulse Ox 89 L 11/11/24 10:41 Laboratory Results - last 24 hr 11/11/24 11/11/24 05:48 05:49 WBC 11.46 H RBC 4.23 L Hgb 12.6 L Hct 36.2 L MCV 86 MCH 29.8 MCHC 34.8 RDW 13.6 Plt Count 319 MPV 9.6 Immature Gran % 1.8 Neutrophils % 72.8 Lymphocytes % 14.0 Monocytes % 5.8 Eosinophils % 5.1 Basophils % 0.5 Nucleated RBC % 0.0 Absolute Neutrophils 8.34 H Absolute Lymphocytes 1.60 Absolute Monocytes 0.66 Absolute Eosinophils 0.58 Absolute Basophils 0.06 Sodium 137 Potassium 3.6 Chloride 103 Carbon Dioxide 27.5 Anion Gap 6.5 BUN 12 Creatinine 0.9 Est GFR (CKD-EPI 2020) 95.97 Glucose 151 H Calcium 8.4 L Total Bilirubin 0.5 AST 26 ALT 39 Alkaline Phosphatase 178 H Total Protein 6.1 L Albumin 2.0 L Time Spent with Patient Time Spent with Patient: >50 minutes Time was spent: preparing to see the patient(eg.review tests), obtaining and/or reviewing separately otained hiistory, ordering medications,tests, procedures, referring, communicating with other health child care associate teacher, indepentently interpreting results, counseling the patient and care coordination
--- NOTE | 2024-11-11 13:37 | DI.RAD_ITS ---
Exam(s) XR ABDOMEN FLAT UPRIGHT EXAM: 2D digital imaging was performed. CLINICAL HISTORY: POD#8 lap yasmani, distention and discomfort. COMPARISON: US US ABDOMEN LIMITED from 11/03/2024 CR XR PORTABLE CHEST AP from 11/07/2024 TECHNIQUE: Supine and uprightSupine and Lateral views of the abdomen were performed. FINDINGS: BOWEL GAS PATTERN: The stomach, small bowel and colon are nondistended. No significant visible stool . CALCIFICATIONS: No urinary tract calcifications. OSSEOUS STRUCTURES: Normal for age. Visualized portions of chest: Bibasilar infiltrates again noted. Trace bilateral pleural effusions. Soft tissues: Unremarkable. IMPRESSION: 1. Nonobstructive bowel gas pattern. 2. No radiopaque calculi. 3. Bibasilar infiltrates. DATA REPOSITORY: RADIATION DOSE DELIVERED:
--- NOTE | 2024-11-11 14:42 | CHAPLAIN ---
Nick was up in the chair when I visited. He said he's feeling much better and said he expects his will be in later to visit. He was pleasant and easily engaged in a conversation. I explained my role and offered support.
[2024-11-11] MEDS: cefTRIAXone 2 GM/50 ML BAG IVPB (19:27)
[2024-11-11] MEDS: Enoxaparin 40 MG/0.4 ML SYR SC (20:00)
[2024-11-12] VITALS (28 sets, daily range): BP systolic 129–146; BP diastolic 71–82; PULSE 69–100; RESP 15–33; TEMP 37–38.5; O2SAT 88–94
--- NOTE | 2024-11-12 | DI.CT_ITS ---
Exam(s) CT CHEST/ABD/PEL WO EXAM: CT CHEST/ABD/PEL WO CLINICAL HISTORY: ongoing o2 requirements, fevers, abdominal disten. TECHNIQUE: Imaging Protocol: Axial computed tomography images with coronal and sagittal reformatted images were created and reviewed. Computer aided detection (CAD) was utilized. CONTRAST MATERIAL: Noncontrast COMPARISON: MR MR LUMBAR SPINE WO from 07/17/[address] CHEST PE CTA from 11/06/2024 CR XR PORTABLE CHEST AP from 11/07/2024 FINDINGS: CHEST: Pulmonary parenchyma: Some interval improvement of bilateral ground-glass infiltrates. Significant b ilateral infiltrates persist. No dominant measurable mass. Tracheobronchial tree: No bronchiectasis. No mucous plugging.No bronchial wall thickening. Pleura: Worsening of bilateral pleural effusions, small to moderate in size. No pneumothorax. Mediastinum: Stable small reactive lymph nodes. Tiny hiatal hernia. Cardiovascular: Normal heart size. No pericardial effusion. Thoracic aorta non-dilated. Bones: Unremarkable for age. No lytic or blastic lesions.No compression fractures. Soft tissues: Mild gynecomastia, left greater than right. ABDOMEN and PELVIS: Liver: Normal density. No suspicious mass. Gallbladder and biliary tract: Cholecystectomy. No biliary dilatation. Pancreas: Normal density, no abnormal calcifications or inflammatory process. Spleen: Normal. Kidneys: Normal size, contour and axis. No radiodense stones. No obstructive uropathy. No suspicious masses seen. Adrenal glands: No masses seen. Aorta: Abdominal portion non-dilated. Lymph nodes: Within normal limits. Soft tissues: Edema in the anterior abdominal wall. Small bilateral fatty containing inguinal hernia s. Bladder: Unremarkable. Bowel: No obstruction or bowel wall thickening. Diverticulosis. No evidence of diverticulitis. Very little stool. Peritoneal cavity: No ascites. No focal collection. No mesenteric inflammatory response. No free ai r. Bones: Stable L1 and L4 compression fractures. Stable L5 spondylolysis and spondylolisthesis. Reproductive organs: Unremarkable for age. IMPRESSION: Worsening of bilateral pleural effusions, [id number] in size. Some improvement in bilateral ground-glass opacities or significant bilateral infiltrates persist. No acute abnormality in the abdomen or pelvis. RADIATION DOSE DELIVERED: 927.15mGy.cm Total DLP DATA REPOSITORY: All CT scans at this facility are submitted to the National Radiology Data Registry (NRDR) Dose Index Registry (DIR) with the [employer] (ACR). RADIATION OPTIMIZATION: All CT scans at this facility use at least one of these dose optimization te chniques: automated exposure control; mA and/or kV adjustment per patient size (includes targeted exa ms where dose is matched to clinical indication); or iterative reconstruction.
[2024-11-12] MEDS: Ibuprofen 600 MG TAB PO (02:07)
[2024-11-12] MEDS: metroNIDAZOLE 500 MG/100 ML BAG 100 MG IVPB ×3 (02:08→14:16)
[2024-11-12] MEDS: Normal Saline Flush 10 ML SYR IVP ×3 (02:09→20:37)
--- NOTE | 2024-11-12 02:19 | NUR.NOTE ---
0220- pt sleeping soundly. abx given as ordered. ibuprofen given to try and keep temp down
[2024-11-12] MEDS: PIPERACILLIN/TAZO 4.5 GM in Normal Saline 100 ML IVPB ×3 (03:59→15:36)
--- NOTE | 2024-11-12 04:07 | NUR.NOTE ---
0400-continues sleeping comfortable. o2 @ 3L n/c. o2 sats 92
[2024-11-12] MEDS: Allopurinol 300 MG TAB 450 MG PO (07:59)
[2024-11-12] MEDS: amLODIPine 10 MG TAB PO (07:59)
[2024-11-12] MEDS: Omeprazole 10 MG CAPCR PO (07:59)
[2024-11-12] MEDS: Potassium Chloride 20 MEQ TABCR PO ×2 (08:00→20:37)
[2024-11-12] MEDS: Metoprolol CR 25 MG TABCR PO (08:00)
[2024-11-12 08:38] LABS: HCT 40.2 % (40.0-50.0); HGB 13.5 g/dL (13.5-17.5); MCH 29.2 pg (27.0-33.0); MCHC 33.6 % (32.0-36.0); MCV 87 fL (80-95); MPV 9.5 fL (8.0-11.0); Platelet Count 346 10^3/uL (130-400); RBC 4.63 10^6/uL (4.36-5.78); RDW 13.9 % (11.8-14.1); RDW-SD 44.2 fL; WBC 10.25 10^3/uL (4.4-10.8)
[2024-11-12 08:55] LABS: ALT 35 U/L (16-63); AST 23 U/L (15-37); Albumin 2.2 g/dL (3.4-5.0); Alkaline Phosphatase 192 U/L (46-116); Anion Gap 5.5 mmol/L (3-11); BUN 10 mg/dL (7-18); Bilirubin, Total 0.5 mg/dL (0.2-1.0); CO2 26.5 mmol/L (21.0-32.0); CREATININE 0.9 mg/dL (0.70-1.30); Calcium 8.7 mg/dL (8.5-10.1); Chloride 103 mmol/L (98-107); Estimated GFR 95.97 (mL/min/1.73m2); Glucose 145 mg/dL (74-106); Potassium 3.7 mmol/L (3.5-5.1); Sodium 135 mmol/L (136-145); Total Protein 6.8 g/dL (6.4-8.2)
[2024-11-12] MEDS: Simethicone 80 MG CHEW 160 MG PO (12:25)
--- NOTE | 2024-11-12 12:43 | PDOC.CMDIS ---
Date of service: 11/12/24 Time of Service: 12:43 LACE Index Scoring Tool Questions: Length of Stay (in days): 7 - 13 Was the patient admitted via the E.D.?: Yes E.D. Visits: 1 Answers: Total Score: 9 Risk of Readmission: Low Risk Care Management Discharge Plan Reason for Hospitalization: cholecystitis Discharge Plan: Nick will be discharged home with new home oxygen through [facility]. He will follow up with his community provider and plan of care and transport with family. Patient/Family Education Needs: Review of discharge instructions, limitations, follow up plan and discuss Ask Me Three. Services Needed at Discharge: Oxygen Therapy SDOH Health Related Social Needs: No Data to Display
--- NOTE | 2024-11-12 15:03 | PGE_ITS ---
Date of Service Date of service: 11/12/24 Time of Service: 15:03 Assessment and Plan Assessment and plan (1) Aspiration pneumonitis after procedure: Status: Acute Assessment and plan: -patient aspirated perioperatively and was sent to the ICU after surgery -initially managed by surgery as patient was improving, but Medicine consult placed POD #2 as patient appeared to be getting worse with increased O2 requirements and tachypnea -post-operatively he was initially on 3L NC but needed to be transitioned to HFNC -patient was placed on vanc and zosyn which has since been continued, likely to be discontinued tomorrow 11/12 based on patients ongoing improvements -CRX did not show consolidation and patient was initially with fevers but became febrile -patient was being set up for discharge, but again developed fever of 101.3, and required up to 6L NC while ambulating with RT -ordered repeat blood cultures, UA, and CT chest/abdo/pelvis -CT chest abdomen pelvis did not show any acute findings in the abdomen or pelvis, but did show worsening bilateral pleural effusions mild to moderate in size with some improvement in bilateral groundglass opacities or significant bilateral infiltrates persisting - UA negative - Given persistent fevers and above findings of CT chest, antibiotics have been changed to cefepime and vancomycin, will order MRSA swab and discontinue vanc omycin if negative -HFNC has since been weaned, patient now on 2L NC at rest, continue to wean as tolerated (2) Acute hypoxic respiratory failure: Status: Acute Assessment and plan: -secondary to aspiration event as noted above (3) Thyroid nodule: Status: Acute Assessment and plan: -outpatient follow-up (4) Acute cholecystitis: Status: Acute Assessment and plan: -POD#9 s/p cholecystecomy but apparently had an aspiration event perioperatively -patient had been constipated which improved with PRN bowel regimen (5) S/P laparoscopic cholecystectomy: Assessment and plan: as noted above Subjective Subjective Interval history since last seen: Patient stated that he was doing well, though he was continuing to have some abdominal bloating despite tolerating PO intake and have BMs. Exam Narrative Exam Narrative: well appearing gentleman laying in bed in no acute distressm AOx4, heart RRR, lungs CTAB, abdomen firm but without tenderness, guarding or rebound Objective Last Vital Signs Temp 101.3 F H 11/12/24 14:20 Pulse 95 H 11/12/24 14:21 Resp 20 11/12/24 14:21 BP 130/71 11/12/24 14:21 Pulse Ox 92 11/12/24 14:21 Laboratory Results - last 24 hr 11/12/24 08:30 WBC 10.25 RBC 4.63 Hgb 13.5 Hct 40.2 MCV 87 MCH 29.2 MCHC 33.6 RDW 13.9 Plt Count 346 MPV 9.5 Sodium 135 L Potassium 3.7 Chloride 103 Carbon Dioxide 26.5 Anion Gap 5.5 BUN 10 Creatinine 0.9 Est GFR (CKD-EPI 2020) 95.97 Glucose 145 H Calcium 8.7 Total Bilirubin 0.5 AST 23 ALT 35 Alkaline Phosphatase 192 H Total Protein 6.8 Albumin 2.2 L Time Spent with Patient Time Spent with Patient: >50 minutes Time was spent: preparing to see the patient(eg.review tests), obtaining and/or reviewing separately otained hiistory, ordering medications,tests, procedures, referring, communicating with other health college and career counselor, indepentently interpreting results, counseling the patient and care coordination
[2024-11-12] MEDS: Acetaminophen 500 MG TAB 1000 MG PO (15:18)
[2024-11-12 16:18] LABS: Bilirubin Negative (Negative); Blood Negative (Negative); Clarity Clear (Clear); Glucose Negative (Negative); Ketones Negative (Negative); Leukocyte Esterase Negative (Negative); Nitrite Negative (Negative); Urobilinogen 0.2 mg/dL (Up to 0.2)
[2024-11-12] MEDS: Albuterol 2.5 MG/3 ML INH SOLN VIAL UPD (16:36)
[2024-11-12] MEDS: CEFEPIME 2 GM in Normal Saline 100 ML IVPB (17:50)
[2024-11-12 19:27] LABS: MRSA PCR Negative (Negative)
[2024-11-12] MEDS: VANCOMYCIN 1,250 MG in Normal Saline 250 ML 166.667 MG IV (19:40)
--- NOTE | 2024-11-12 19:41 | RESPIRATORY ---
11/12/2024 Walked patient a short distance in the ICU. Pt was requiring 6L with breaks to maintain around 88% SPO2 and needs 2-3L at rest. Pt was feeling abdominal pressure. RN aware.
[2024-11-12] MEDS: Enoxaparin 40 MG/0.4 ML SYR SC (20:37)
[2024-11-13] VITALS (13 sets, daily range): BP systolic 111–145; BP diastolic 61–96; PULSE 67–102; RESP 17–38; TEMP 36.6–38.3; O2SAT 87–96
[2024-11-13] MEDS: Ibuprofen 600 MG TAB PO (02:01)
[2024-11-13] MEDS: CEFEPIME 2 GM in Normal Saline 100 ML IVPB ×3 (02:02→17:05)
[2024-11-13 05:46] LABS: HCT 33.8 % (40.0-50.0); HGB 11.7 g/dL (13.5-17.5); MCHC 34.6 % (32.0-36.0); MCV 87 fL (80-95); MPV 9.2 fL (8.0-11.0); Platelet Count 410 10^3/uL (130-400); RDW 14.2 % (11.8-14.1); RDW-SD 44.9 fL; WBC 12.38 10^3/uL (4.4-10.8)
[2024-11-13 06:17] LABS: ALT 29 U/L (16-63); AST 17 U/L (15-37); Albumin 1.9 g/dL (3.4-5.0); Alkaline Phosphatase 158 U/L (46-116); Anion Gap 6.9 mmol/L (3-11); BUN 14 mg/dL (7-18); Bilirubin, Total 0.3 mg/dL (0.2-1.0); CO2 26.1 mmol/L (21.0-32.0); Calcium 8.4 mg/dL (8.5-10.1); Chloride 108 mmol/L (98-107); Estimated GFR 84.57 (mL/min/1.73m2); Glucose 122 mg/dL (74-106); Potassium 4.3 mmol/L (3.5-5.1); Sodium 141 mmol/L (136-145); Total Protein 5.8 g/dL (6.4-8.2)
[2024-11-13] MEDS: VANCOMYCIN 1,250 MG in Normal Saline 250 ML 166.67 MG IV (06:22)
[2024-11-13] MEDS: Allopurinol 300 MG TAB 450 MG PO (07:44)
[2024-11-13] MEDS: Potassium Chloride 20 MEQ TABCR PO ×2 (07:45→20:07)
[2024-11-13] MEDS: Omeprazole 10 MG CAPCR PO (07:45)
[2024-11-13] MEDS: Metoprolol CR 25 MG TABCR PO (07:45)
[2024-11-13] MEDS: amLODIPine 10 MG TAB PO (07:45)
[2024-11-13] MEDS: Normal Saline Flush 10 ML SYR IVP ×2 (07:46→20:07)
--- NOTE | 2024-11-13 08:38 | CMPROGNOTE_ITS ---
Date of service: 11/13/24 Time of Service: 08:38 Care Management Progress Note Progress Note Text Progress Note Text: Nick was sitting up in a chair when CM met with him. He was smiling and easily engaged with CM but appeared a bit discouraged. Nick has been hospitalized for 10 days following a cholecystectomy which was complicated by an aspiration event during intubation. He developed pneumonia and pleural effusions and continues to require supplemental oxygen from 2L/min at rest to 6 L/min with activity. He has also been spiking fevers every day, up to 38.5 C. His antibiotics were changed yesterday and the provider consulted [facility] for additional recommendations today. They recommended diuresis for the pleural effusions and the addition of steroids and to continue efforts to wean off the oxygen. Discharge Potential Discharge Needs: PCP F/U Appt Anticipated Barriers to Discharge: None Identified Patient/Family Education Needs: Review discharge instructions, discuss Ask Me Three Transportation: Private vehicle Plan: Anticipate Nick will be discharged home when medically cleared. it is possible that he may need home oxygen for a time which he is agreeable to, however his oxygen needs are finally beginning to decrease. He will follow up with his surgeon, PCP and plan of care and transport with family. CM will continue to assess for discharge concerns. Social Determinants of Health Screening Social Determinants of health last assessed in clinic: 11/13/24 Will the Patient Participate in the Screening?: Yes Do you worry about having a steady place to live?: no Problems where you live: no known problems In the past 12 months, have you had to go without electric, gas, oil or water in your home?: no 1. Within the past 12 months, we worried whether our food would run out before we got money to buy more.: Never true 2. Within the past 12 months, the food we bought just didn't last and we didn't have money to get more.: Never true Has lack of transportation kept you from medical appointments or from doing thin gs needed for daily living?: no Has anyone in your life made you feel unsafe or unsupported?: no How hard is it for you to pay for the very basics like food, housing, medical care, and heating? Would you say it is:: Not hard at all Do you want help finding or keeping work or a job?: I do not need or want help If for any reason you need help with day-to-day activities such as bathing, preparing meals, shopping, managing finances, etc., do you get the help you need?: I don?t need any help How often do you feel lonely or isolated from those around you?: Never Do you speak a language other than [place]ore[place] at home?: No Does the patient want assistance with any of the above?: No
[2024-11-13 13:14] LABS: C-Reactive Protein 5.94 mg/dL (<or=0.5)
--- NOTE | 2024-11-13 13:23 | PGE_ITS ---
Date of Service Date of service: 11/13/24 Time of Service: 13:23 Assessment and Plan Assessment and plan (1) Aspiration pneumonitis after procedure: Status: Acute Assessment and plan: -patient aspirated perioperatively and was sent to the ICU after surgery -initially managed by surgery as patient was improving, but Medicine consult placed POD #2 as patient appeared to be getting worse with increased O2 requirements and tachypnea -post-operatively he was initially on 3L NC but needed to be transitioned to HFNC -patient was placed on vanc and zosyn which has since been continued, likely to be discontinued tomorrow 11/12 based on patients ongoing improvements -CRX did not show consolidation and patient was initially with fevers but became febrile -patient was being set up for discharge, but again developed fever of 101.3, and required up to 6L NC while ambulating with RT -ordered repeat blood cultures, UA, and CT chest/abdo/pelvis -CT chest abdomen pelvis did not show any acute findings in the abdomen or pelvis, but did show worsening bilateral pleural effusions mild to moderate in size with some improvement in bilateral groundglass opacities or significant bilateral infiltrates persisting - UA negative - Given persistent fevers and above findings of CT chest, antibiotics have been changed to cefepime and vancomycin -MRSA swab negative, Vanco discontinued as of 11/13/2024 -Repeat blood cultures drawn on 11/12/2024 remain negative at this time, will follow-up for final results - Reached out to [facility] pulmonology and greatly appreciate their consultation and recommendations: -Given patient history, unlikely that he has superimposed fungal infection, or other untreated infection -Imaging reviewed, likely combination of moderate bilateral pleural effusions in combination with postinfectious organizing pneumonia -Recommendation for diuresis for pleural effusions and pulmonary edema second to organizing pneumonia, also recommended 0.5 to 1 mg/kg prednisone daily,, nation of which should help with final weaning off of supplemental oxygen as well as recurrent fevers which are likely secondary to postinfectious immune response -HFNC has since been weaned, patient now on 2L NC at rest, continue to wean as tolerated (2) Acute hypoxic respiratory failure: Status: Acute Assessment and plan: -secondary to aspiration event as noted above (3) Thyroid nodule: Status: Acute Assessment and plan: -outpatient follow-up (4) Acute cholecystitis: Status: Acute Assessment and plan: -POD#10 s/p cholecystecomy but apparently had an aspiration event perioperatively -patient had been constipated which improved with PRN bowel regimen (5) S/P laparoscopic cholecystectomy: Assessment and plan: as noted above Subjective Subjective Interval history since last seen: Patient understanding of new plan that was discussed with [facility] group home counselor and has no complaints or concerns at this time. Exam Narrative Exam Narrative: well appearing gentleman laying in bed in no acute distressm AOx4, heart RRR, lungs CTAB, abdomen firm but without tenderness, guarding or rebound Objective Last Vital Signs Temp 100.9 F H 11/13/24 02:00 Pulse 85 11/13/24 07:24 Resp 17 11/13/24 07:24 BP 126/96 H 11/13/24 07:24 Pulse Ox 96 11/13/24 07:24 Laboratory Results - last 24 hr 11/12/24 11/12/24 11/13/24 15:30 17:45 05:28 WBC RBC Hgb Hct MCV MCH MCHC RDW Plt Count MPV Sodium 141 Potassium 4.3 Chloride 108 H Carbon Dioxide 26.1 Anion Gap 6.9 BUN 14 Creatinine 1.0 Est GFR (CKD-EPI 2020) 84.57 Glucose 122 H Calcium 8.4 L Total Bilirubin 0.3 AST 17 ALT 29 Alkaline Phosphatase 158 H C-Reactive Protein Total Protein 5.8 L Albumin 1.9 L Urine Color Yellow Urine Clarity Clear Urine pH 7.0 Ur Specific [place] 1.020 Urine Protein Trace Urine Ketones Negative Urine Blood Negative Urine Nitrite Negative Urine Bilirubin Negative Urine Urobilinogen 0.2 Ur Leukocyte Esterase Negative Urine Glucose Negative MRSA (TEM-PCR) Negative 11/13/24 11/13/24 05:36 12:52 WBC 12.38 H RBC 3.90 L Hgb 11.7 L Hct 33.8 L MCV 87 MCH 30.0 MCHC 34.6 RDW 14.2 H Plt Count 410 H MPV 9.2 Sodium Potassium Chloride Carbon Dioxide Anion Gap BUN Creatinine Est GFR (CKD-EPI 2020) Glucose Calcium Total Bilirubin AST ALT Alkaline Phosphatase C-Reactive Protein 5.94 H Total Protein Albumin Urine Color Urine Clarity Urine pH Ur Specific [place] Urine Protein Urine Ketones Urine Blood Urine Nitrite Urine Bilirubin Urine Urobilinogen Ur Leukocyte Esterase Urine Glucose MRSA (TEM-PCR) Time Spent with Patient Time Spent with Patient: >50 minutes Time was spent: preparing to see the patient(eg.review tests), obtaining and/or reviewing separately otained hiistory, ordering medications,tests, procedures, referring, communicating with other health home health care social worker, indepentently interpreting results, counseling the patient and care coordination
[2024-11-13] MEDS: Furosemide 40 MG/4 ML VIAL IVP (13:35)
[2024-11-13] MEDS: predniSONE 20 MG TAB 60 MG PO (13:35)
[2024-11-13] MEDS: Acetaminophen 500 MG TAB 1000 MG PO (15:40)
--- NOTE | 2024-11-13 16:09 | W.PC.ACHO ---
Registration Status: Primary Language: Preferred Language: ED Information & Data Chief Complaint Abd Prob 11/03/24 10:10 Triage Note BIBA RUQ pain with radiation 11/03/24 09:23 to the mid back started yesterday approx 1hr after dinner, has not eaten yet this AM had same type episode couple weeks ago - prior to arrival 4mg zofran - 100 fent (Last Updated 11/13/24 @ 13:27 by Amanda Bose) S/P laparoscopic cholecystectomy (~10/2024) H/O left knee surgery Most Recent Vital Signs Temperature 36.8 C 11/13/24 15:46 Temperature Source Temporal Artery Scan 11/13/24 15:46 Pulse 93 H 11/13/24 15:46 Pulse Rhythm Regular 11/03/24 14:20 Pulse 86 11/13/24 07:24 Respiratory Rate 18 11/13/24 15:46 Respiratory Effort Incrsd Work of Breathing 11/07/24 16:40 Respiratory Depth Shallow 11/07/24 16:40 Respiratory Pattern Hyperpnea 11/07/24 16:40 Blood Pressure 125/81 11/13/24 15:46 Blood Pressure Mean 95 11/13/24 15:46 Blood Pressure Position Right Lateral 11/07/24 16:40 Pulse Oximetry 91 L 11/13/24 15:46 Oxygen Delivery Method Nasal Cannula 11/13/24 15:46 Oxygen Flow Rate 2 11/13/24 15:46 Fraction of Inspired Oxygen (FIO2) 35 11/11/24 04:00 Pain Level 0 11/13/24 15:46 Comment RN notified 11/13/24 13:42 Allergies SHIRLEY Inhibitors Adverse Reaction (Intermediate, Verified 11/03/24 14:49) angioedema indomethacin Adverse Reaction (Verified 11/03/24 14:49) N/V/D Precautions Isolation Standard precaution 11/03/24 09:36 Active Medications Generic Name Dose Route Start Last Admin Trade Name Freq PRN Reason Stop Dose Admin Acetaminophen 1,000 mg 11/11/24 08:48 11/13/24 15:40 Acetaminophen 500 Mg Tab PO 1,000 mg Q6H PRN PRN Administration Albuterol Sulfate 2.5 mg 11/07/24 20:00 11/12/24 16:36 Albuterol 2.5 Mg/3 Ml Inh Soln Vial UPD 2.5 mg Q4H PRN PRN Administration Allopurinol 450 mg 11/04/24 08:30 11/13/24 07:44 Allopurinol 300 Mg Tab PO 12/04/24 08:29 450 mg DAILY EKTA Administration Amlodipine Besylate 10 mg 11/04/24 08:30 11/13/24 07:45 Amlodipine 10 Mg Tab PO 12/04/24 08:29 10 mg DAILY ETKA Administration Bisacodyl 5 mg 11/08/24 01:56 11/11/24 16:49 Bisacodyl 5 Mg Tabec PO 5 mg DAILY PRN PRN Administration Enoxaparin Sodium 40 mg 11/03/24 20:00 11/12/24 20:37 Enoxaparin 40 Mg/0.4 Ml Syr SC 12/03/24 19:59 40 mg Q24H EKTA Administration Cefepime HCl 2 gm/ Sodium 100 mls @ 200 mls/hr 11/12/24 17:00 11/13/24 15:21 Chloride IVPB Infused Q8H EKTA Infusion Ibuprofen 600 mg 11/09/24 20:59 11/13/24 02:01 Ibuprofen 600 Mg Tab PO 600 mg Q6H PRN PRN Administration Metoprolol Succinate 25 mg 11/04/24 08:30 11/13/24 07:45 Metoprolol Cr 25 Mg Tabcr PO 12/04/24 08:29 25 mg DAILY EKTA Administration Morphine Sulfate 1 mg 11/09/24 17:32 11/11/24 12:04 Morphine 2 Mg/Ml Syr IVP 1 mg Q4H PRN PRN Administration Omeprazole 10 mg 11/04/24 07:30 11/13/24 07:45 Omeprazole 10 Mg Capcr PO 10 mg DAILY@0730 EKTA Administration Polyethylene Glycol 17 gm 11/03/24 19:34 11/10/24 21:57 Polyethylene Glycol 3350 17 Gm Packet PO 17 gm DAILY PRN PRN Administration Constipation Potassium Chloride 20 meq 11/08/24 10:00 11/13/24 07:45 Potassium Chloride 20 Meq Tabcr PO 20 meq BID EKTA Administration Prednisone 60 mg 11/13/24 13:25 11/13/24 13:35 Prednisone 20 Mg Tab PO 60 mg DAILY EKTA Administration Simethicone 160 mg 11/10/24 21:41 11/12/24 12:25 Simethicone 80 Mg Chew PO 160 mg Q6H PRN PRN Administration distention Sodium Chloride 0 ml 11/03/24 19:28 11/12/24 02:09 Normal Saline Flush 10 Ml Syr IVP 12/03/24 19:27 10 ml PRN PRN Administration Sodium Chloride 0 ml 11/03/24 20:00 11/13/24 07:46 Normal Saline Flush 10 Ml Syr IVP 12/03/24 19:59 20 ml BID EKTA Administration Sodium Chloride 3 ml 11/07/24 15:15 11/11/24 18:13 Sodium Chloride 0.9% For Inhalation 3 Ml Vial UPD 3 ml Q4H PRN PRN Administration IV IV Catheter Type [Rt anterior Saline Lock forearm] IV Catheter Type [Right Peripheral IV Forearm] IV Catheter Type [Left Wrist] Saline Lock IV Catheter Type [Left Hand] Peripheral IV IV Catheter Type [Right Peripheral IV Antecubital] IV Catheter Gauge [Rt anterior 20 forearm] IV Catheter Gauge [Right 20 Forearm] IV Catheter Gauge [Left Wrist] 20 IV Catheter Gauge [Left Hand] 20 IV Catheter Gauge [Right 18 Antecubital] Diagnostics 11/13/24 11/13/24 11/13/24 Range/Units 12:52 05:36 05:28 WBC 12.38 H (4.4-10.8) 10^3/uL RBC 3.90 L (4.36-5.78) 10^6/uL Hgb 11.7 L (13.5-17.5) g/dL Hct 33.8 L (40.0-50.0) % MCV 87 (80-95) fL MCH 30.0 (27.0-33.0) pg MCHC 34.6 (32.0-36.0) % RDW 14.2 H (11.8-14.1) % Plt Count 410 H (130-400) 10^3/uL MPV 9.2 (8.0-11.0) fL Sodium 141 (136-145) mmol/L Potassium 4.3 (3.5-5.1) mmol/L Chloride 108 H (98-107) mmol/L Carbon Dioxide 26.1 (21.0-32.0) mmol/L Anion Gap 6.9 (3-11) mmol/L BUN 14 (7-18) mg/dL Creatinine 1.0 (0.70-1.30) mg/dL Est GFR (CKD-EPI 2020) 84.57 (mL/min/1.73m2) Glucose 122 H (74-106) mg/dL Calcium 8.4 L (8.5-10.1) mg/dL Total Bilirubin 0.3 (0.2-1.0) mg/dL AST 17 (15-37) U/L ALT 29 (16-63) U/L Alkaline Phosphatase 158 H (46-116) U/L C-Reactive Protein 5.94 H (<or=0.5) mg/dL Total Protein 5.8 L (6.4-8.2) g/dL Albumin 1.9 L (3.4-5.0) g/dL Urine Color (Yellow) Urine Clarity (Clear) Urine pH (5-8) Ur Specific [place] (1.005-1.025) Urine Protein (Neg-Trace) mg/dL Urine Ketones (Negative) mg/dL Urine Blood (Negative) Urine Nitrite (Negative) Urine Bilirubin (Negative) Urine Urobilinogen (Up to 0.2) mg/dL Ur Leukocyte Esterase (Negative) Urine Glucose (Negative) mg/dL MRSA (TEM-PCR) (Negative) 11/12/24 11/12/24 Range/Units 17:45 15:30 WBC (4.4-10.8) 10^3/uL RBC (4.36-5.78) 10^6/uL Hgb (13.5-17.5) g/dL Hct (40.0-50.0) % MCV (80-95) fL MCH (27.0-33.0) pg MCHC (32.0-36.0) % RDW (11.8-14.1) % Plt Count (130-400) 10^3/uL MPV (8.0-11.0) fL Sodium (136-145) mmol/L Potassium (3.5-5.1) mmol/L Chloride (98-107) mmol/L Carbon Dioxide (21.0-32.0) mmol/L Anion Gap (3-11) mmol/L BUN (7-18) mg/dL Creatinine (0.70-1.30) mg/dL Est GFR (CKD-EPI 2020) (mL/min/1.73m2) Glucose (74-106) mg/dL Calcium (8.5-10.1) mg/dL Total Bilirubin (0.2-1.0) mg/dL AST (15-37) U/L ALT (16-63) U/L Alkaline Phosphatase (46-116) U/L C-Reactive Protein (<or=0.5) mg/dL Total Protein (6.4-8.2) g/dL Albumin (3.4-5.0) g/dL Urine Color Yellow (Yellow) Urine Clarity Clear (Clear) Urine pH 7.0 (5-8) Ur Specific [place] 1.020 (1.005-1.025) Urine Protein Trace (Neg-Trace) mg/dL Urine Ketones Negative (Negative) mg/dL Urine Blood Negative (Negative) Urine Nitrite Negative (Negative) Urine Bilirubin Negative (Negative) Urine Urobilinogen 0.2 (Up to 0.2) mg/dL Ur Leukocyte Esterase Negative (Negative) Urine Glucose Negative (Negative) mg/dL MRSA (TEM-PCR) Negative (Negative) 11/12/24 15:27 Blood Culture - Pending Blood 11/12/24 15:12 Blood Culture - Pending Blood Intake and Output - 24 Hour Total 11/03/24 09:10 thru 11/13/24 15:21 Intake Total 48196.250 Output Total 23396 Balance 49140.250 Weight 100.5 kg [place]: [place] [address].250 Oral 7630 Output: Urine 40519 Stool 600 Other: Urine Color Pale Urine Appearance Clear Urine Odor None Comment unknown amount is mixed with stool Stool Size Moderate Stool Characteristics Soft Emesis Description None Falls Risk Assessment History of Falls No History 11/07/24 16:40 Contributing Factors No Factors 11/07/24 16:40 Ambulatory Aids Independent 11/07/24 16:40 Tubes/Lines W/no contributing factors 11/07/24 16:40 Gait Evaluation No gait disturbance 11/07/24 16:40 Fall Total Score 10 11/07/24 16:40 Level of Risk Standard/Low Risk 11/07/24 16:40 Problems (Last Reviewed 11/06/24 @ 05:14 by Hossein Cruz) Acute hypoxic respiratory failure (Acute) Aspiration pneumonitis after procedure (Acute) Acute cholecystitis (Acute) Thyroid nodule (Acute) Notes 11/12/24 19:41 Respiratory by Angy Toribio 11/12/2024 Walked patient a short distance in the ICU. Pt was requiring 6L with breaks to maintain around 88% SPO2 and needs 2-3L at rest. Pt was feeling abdominal pressure. RN aware. Initialized on 11/12/24 19:41 - END OF NOTE 11/12/24 04:07 Nursing Notes by Michelle Arriaza 0400-continues sleeping comfortable. o2 @ 3L n/c. o2 sats 92 Initialized on 11/12/24 04:07 - END OF NOTE 11/12/24 02:19 Nursing Notes by Michelle Arriaza 0220- pt sleeping soundly. abx given as ordered. ibuprofen given to try and keep temp down Initialized on 11/12/24 02:19 - END OF NOTE 11/11/24 06:13 Nursing Notes by Michelle Arriaza 0615-resp in and changed pt to regular n/c at 2 L.o2 sat 93% and tolerated well. Initialized on 11/11/24 06:13 - END OF NOTE 11/11/24 03:29 Nursing Notes by Michelle Arriaza pt sleeping well with High flow o2 on. n/c voiced when awake Initialized on 11/11/24 03:29 - END OF NOTE 11/06/24 01:54 Nursing Notes by Dotty Upton Nursing note Pt resting in recliner. Eyes closed. Resp 40's/min. Sleep apnea noted. Sats on 5L while resting 87%. Awakens to voice. Enc deep breathe. Oxygen sats inc to 93% but return to upper 80's while at rest. Denies needs. Initialized on 11/06/24 01:54 - END OF NOTE 11/04/24 05:56 Respiratory by Ariana Calzada Rt called to pacu (pt had aspiration event during intubation for surgery) to place pt on airvo system post extubation. Pt was extubated in pacu w/out complication, strong cough and tolerated hhfnc well. T/o the night Rt able to titrate fio2 down. Vibra pep given to pt and used with instructions. Will continue to monitor and work on airway clearance while titrating high flow. Initialized on 11/04/24 05:56 - END OF NOTE v v v v v v v v v Sending and/or Receiving Nurses: Please use comment section below to note any information pertinent to the patient hand-off not included above. Information / Comments: Report received from:Ora at 1247
[2024-11-13] MEDS: Enoxaparin 40 MG/0.4 ML SYR SC (20:07)
[2024-11-14] MEDS: CEFEPIME 2 GM in Normal Saline 100 ML IVPB ×2 (01:54→08:51)
[2024-11-14 03:10] VITALS: BP 164/59; PULSE 86; RESP 20; TEMP 36.9; O2SAT 93
[2024-11-14 06:35] LABS: HCT 37.5 % (40.0-50.0); MCH 29.8 pg (27.0-33.0); MCHC 34.7 % (32.0-36.0); MCV 86 fL (80-95); MPV 9.2 fL (8.0-11.0); Platelet Count 563 10^3/uL (130-400); RBC 4.36 10^6/uL (4.36-5.78); RDW 13.8 % (11.8-14.1); WBC 15.72 10^3/uL (4.4-10.8)
[2024-11-14 06:56] LABS: Anion Gap 8.2 mmol/L (3-11); BUN 20 mg/dL (7-18); CO2 25.8 mmol/L (21.0-32.0); Calcium 9.3 mg/dL (8.5-10.1); Chloride 107 mmol/L (98-107); Estimated GFR 84.57 (mL/min/1.73m2); Glucose 127 mg/dL (74-106); Potassium 4.1 mmol/L (3.5-5.1); Sodium 141 mmol/L (136-145)
[2024-11-14 08:20] VITALS: BP 134/75; PULSE 95; RESP 12; TEMP 37.3; O2SAT 91
[2024-11-14] MEDS: Omeprazole 10 MG CAPCR PO (08:45)
[2024-11-14] MEDS: Allopurinol 300 MG TAB 450 MG PO (08:45)
[2024-11-14] MEDS: Potassium Chloride 20 MEQ TABCR PO (08:49)
[2024-11-14] MEDS: Metoprolol CR 25 MG TABCR PO (08:49)
[2024-11-14] MEDS: amLODIPine 10 MG TAB PO (08:49)
[2024-11-14] MEDS: Normal Saline Flush 10 ML SYR IVP (08:51)
[2024-11-14] MEDS: Simethicone 80 MG CHEW 160 MG PO (09:11)
[2024-11-14] MEDS: predniSONE 20 MG TAB 40 MG PO (09:11)
[2024-11-14] MEDS: Furosemide 20 MG TAB PO (10:06)
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
[2024-11-14 11:24] VITALS: BP 116/89; PULSE 85; RESP 16; TEMP 37.3; O2SAT 94
[2024-11-14 11:30] VITALS: PULSE 93; O2SAT 89; O2SAT 90
--- NOTE | 2024-11-14 12:29 | PDOC.CMDIS ---
Date of service: 11/14/24 Time of Service: 12:29 LACE Index Scoring Tool Questions: Length of Stay (in days): 7 - 13 Was the patient admitted via the E.D.?: Yes E.D. Visits: 0 Answers: Total Score: 8 Risk of Readmission: Low Risk Care Management Discharge Plan Reason for Hospitalization: cholecystitis Discharge Plan: Shad will return home today with no new services. He will transport home via private vehicle by family. He will follow up with his PCP and discharge plan of care. He is happy to be going home. Patient/Family Education Needs: Review discharge instructions and limitations, discussion of self care needs including ask me three. SDOH Health Related Social Needs: No Data to Display
--- NOTE | 2024-11-14 15:59 | RESPIRATORY ---
11/14/2024 Patient is requiring 2L at rest to maintain >88%. He required 5L with ambulation to maintain greater than 88% with ambulation while walking slow. Patient recovered on 5L NC for 3-5 minutes and was then weaned down to 2L NC. Patient was SOB but he knows to go slow and take multiple breaks and only walk short distances. Patient was set up with O2 from [facility] with 2L at rest and 5L with ambulation.
== END 2024-11-14 13:21 | disposition home or self-care (01) | DRG 417 ==
LOC: ER 13:48 → SUR 14:32 → ER 14:33 → ICU 19:28 → MS 11-05 17:10 → ICU 11-07 16:17 → MS 11-13 12:47
PROVIDERS: Family Medicine; Hospitalist; Student in an Organized Health Care Education/Training Program; Admitting Provider Surgery; Emergency Provider Physician Assistant; PCP Nurse Practitioner Family; Responsible Provider Family Medicine; Visit Provider Surgery
PROC: 0FT44ZZ Resection of Gallbladder, Percutaneous Endoscopic Approach (ICD-10-PCS; CPT 47562; principal; 2024-11-03 14:00)
PROC: 0BJ08ZZ Inspection of Tracheobronchial Tree, Via Natural or Artificial Opening Endoscopic (ICD-10-PCS; CPT 31622; 2024-11-03 14:00)
DX: K80.12 Calculus of gallbladder with acute and chronic cholecystitis without obstruction (principal); J69.0 Pneumonitis due to inhalation of food and vomit; J96.01 Acute respiratory failure with hypoxia; K82.1 Hydrops of gallbladder; J91.8 Pleural effusion in other conditions classified elsewhere; Y84.9 Medical procedure, unspecified as the cause of abnormal reaction of the patient, or of later complication, without mention of misadventure at the time of the procedure; E87.70 Fluid overload, unspecified; E04.1 Nontoxic single thyroid nodule; K82.8 Other specified diseases of gallbladder; I10 Essential (primary) hypertension; M48.02 Spinal stenosis, cervical region; Z87.891 Personal history of nicotine dependence; Z79.899 Other long term (current) drug therapy; R50.9 Fever, unspecified; K59.00 Constipation, unspecified
CPT/HCPCS: 47562; 31635; 00123; 36415; 71250; 71275; 76705; 80048; 80053; 82805; 83690; 84145; 85027; 85652; 87040; 87637; 87641; 93005; 94618; 94669; 94761; 96365; 96375; 96376; 99285; J1650; 71045; 71046; 74019; 74176; 81003; 81015; 83735; 83880; 84484; 85025; 86140; 87070; 87205; 88304; 93010; 94640; 94667; 94668; 94760; 99223; 99232; 99233; 99239; J0131; J0456; J0692; J0696; J1100; J1171; J1790; J1836; J1938; J2270; J2405; J2543; J2704; J3010; J3370; J3490; J7512; J7613

== ENCOUNTER 2024-11-25 00:57 | Outpatient (CLI) | payer MEDICAID, SELFPAY ==
--- NOTE | 2024-11-25 07:00 | DI.US_ITS ---
Exam(s) US THYROID EXAM: US THYROID CLINICAL HISTORY: See CT 11/06/24,thyroid nodule,e04.1. TECHNIQUE: Ultrasound thyroid performed using standard protocol. COMPARISON: No exams were available for comparison FINDINGS: ISTHMUS: 3.5 mm RIGHT LOBE: Size: 5.4 x 2.2 x 1.7 cm Echogenicity: Normal. Vascularity: Normal. Nodules: There is a mixed cystic and solid isoechoic lesion in the right lobe corresponding to the CT abnormality. It is taller than wide. No echogenic foci are seen. It has smooth margins. It is co nsistent with a TI rads 4 nodule. Due to its size, FNA should be considered. LEFT LOBE: Size: 4.5 x 1.4 x 1.6 cm Echogenicity: Normal. Vascularity: Normal. Nodules: None. OTHER FINDINGS: None. IMPRESSION: Mixed cystic and solid right thyroid lesion. It is a TI rads level 4 nodule. Due to its size, FNA s hould be considered. DATA REPOSITORY:
== END 2024-11-25 01:17 ==
LOC: DI 00:57
PROVIDERS: PCP Nurse Practitioner Family; Visit Provider Nurse Practitioner Family
DX: E04.1 Nontoxic single thyroid nodule (principal)
CPT/HCPCS: 76536

== ENCOUNTER 2025-03-23 02:18 | Outpatient (CLI) | payer MEDICAID, SELFPAY ==
--- NOTE | 2025-03-23 06:45 | DI.US_ITS ---
Exam(s) US NEEDLE LOCAL OTHER WO RAD EXAM: US NEEDLE LOCAL OTHER WO RAD CLINICAL HISTORY: Thyroid nodule meeting criteria for biopsy,ULTRASOUND GUIDED BX,E04.1. COMPARISON: US US THYROID from 11/25/2024 TECHNIQUE: Ultrasound was provided for Dr. Hilliard for guidance with performing a right thyroid biopsy. FINDINGS: Please see procedure note for details. DATA REPOSITORY:
--- NOTE | 2025-03-23 12:20 | PAPNONF_PTH ---
PATIENT: Shad Maxwell LOC: [facility] U#:[id number] AGE/SX: 65/M ROOM: RE03/23/[address]: Abdelrahman Hilliard MD : [id number] BED: DIS: 03/23/2025 SPEC #: [id number] RECD: 03/23/25 12:48 STATUS: DAYANA REJuanita #: [id number] ALINA: 03/23/25 12:[address]: Abdelrahman Hilliard DEPT: [facility] Cytology RECD BY: Frieda Cassidy ENTERED: 03/23/25 12:48 SP TYPE: SINDI BUENROSTRO DR: Kimo George, BE Tissues: 1 - BODY FLUID CYTO-FINE NEEDLE ASPIRATE-[facility] Procedures: BODY FLUID CYTO-FINE NEEDLE ASPIRATE-[facility] Comments: [id number] (PATH FNA CONSULT) (REFRIGERATED)
--- NOTE | 2025-03-23 12:35 | W.PROCNOTE ---
Date of service: 03/23/25 Time of Service: 12:35 Procedure Note Date of procedure: 03/23/25 Procedure: Ultrasound-guided FNA, right thyroid nodule, pathology present Surgeon/Proceduralist/Physician: Abdelrahman Hilliard Procedure Indications: Patient has a right sided thyroid nodule meeting criteria for biopsy. Options were explained to the patient regarding further management. He elected to undergo the above procedure. Consent was filled and signed prior to the procedure. H&P was reviewed. There have been no changes. Procedure Description: After positioning the patient in the supine position with his head turned slightly to the left, and prepping and draping the patient in an appropriate fashion ultrasound was used to localize the right thyroid nodule. 2% lidocaine with 1/100,000 epinephrine was injected into the skin and subcutaneous tissues overlying the thyroid nodule. A 25-gauge needle was then passed into the thyroid nodule, and used to collect the specimen. Adequate cellularity was verified by pathology. An additional pass was made for additional cytology and then 2 additional passes were made for potential Afirma testing. All of these were done under ultrasound. Following this, after ensuring adequate hemostasis, sterile dressing was applied and the patient was allowed to sit, stand, and ambulate. His vital signs remained stable. He will remove the bandage in a couple of hours and not replace it. He will call with any signs of infection or any concerns. He will avoid any strenuous activities today and we will call with any signs of infection or inflammation. He will also call if he does not hear from me within 1 week with regard to pathology. He had no further questions. He is comfortable with this plan.
== END 2025-03-23 02:38 ==
LOC: DI 02:18
PROVIDERS: PCP Nurse Practitioner Family; Visit Provider Otolaryngology
DX: E04.1 Nontoxic single thyroid nodule (principal)
CPT/HCPCS: 10005; 76942; 88104

== ENCOUNTER → 2025-04-22 12:51 | Outpatient (CLI) | payer MEDICAID, SELFPAY ==
--- NOTE | 2025-04-22 09:45 | DI.US_ITS ---
Exam(s) US SOFT TISSUE EXTREMITY EXAM: US SOFT TISSUE EXTREMITY CLINICAL HISTORY: Mass x2 days on left lateral upper thigh.Painful, R22.40. TECHNIQUE: Ultrasound was performed using standard protocol. COMPARISON: None FINDINGS: Dedicated ultrasound examination of the area of clinical concern on the upper lateral left thigh was performed. There is a longtitudinally orientated clear fluid collection at this level which measures 4.7 cm craniocaudal length by 3.4 cm wide by 0.5 cm thick.. This appears to be within a structure. Suspect that this may be the iliotibial band, given its location. IMPRESSION: There is a 47 x 34 x5 mm longitudinally orientated fluid collection corresponding to the palpable lump in the upper lateral left thigh. Suspect that this may be related to the tensor fascia jere. If clinically indicated MRI of this region can be performed for added specificity. DATA REPOSITORY:
== END ==
LOC: DI 12:51
PROVIDERS: PCP Nurse Practitioner Family; Visit Provider Nurse Practitioner Family
DX: R22.42 Localized swelling, mass and lump, left lower limb (principal)
CPT/HCPCS: 76881